=== PATIENT | male | born 1945 | race Caucasian/White ===

== ENCOUNTER 2022-05-01 08:33 | Outpatient (CLI) | payer MEDICARE, SELFPAY | END 2022-05-01 08:34 | disposition home or self-care (01) | LOC: AMB 12:39 | PROVIDERS: PCP Family Medicine; Visit Provider Emergency Medicine Emergency Medical Services | DX: R06.09 Other forms of dyspnea (principal) | CPT/HCPCS: A0425; A0427 ==

== ENCOUNTER 2022-05-01 09:14 | Inpatient (IN) | payer MEDICARE, SELFPAY ==
[2022-05-01] VITALS (23 sets, daily range): BP systolic 107–155; BP diastolic 64–93; PULSE 60–108; RESP 24–402; TEMP 36.4–36.9; O2SAT 87–95; BMI 22.3
[2022-05-01] MEDS: ONDANSETRON 2 MG/ML inj 4 MG IVP (09:20)
--- NOTE | 2022-05-01 09:28 | CRLHL7_ITS ---
For Patients: As a result of the Century Cures Act, medical imaging exams and procedure reports are released immediately into your electronic medical record. You may view this report before your referring provider. If you have questions, please contact your health care provider. INDICATION: Shortness of breath TECHNIQUE: Single view chest. Comparison chest x-ray 04/26/2021 FINDINGS: Enlarged cardiac silhouette. Calcified pleural plaques basilar atelectasis. No effusion or pneumothorax. Prominence of the pulmonary hilum could be related to enlarged pulmonary arteries. Hiatal hernia. No acute pulmonary findings. Dictated by Deepa Casanova MD @ 05/01/2022 10:07:16 AM (Electronically Signed)
--- NOTE | 2022-05-01 09:32 | ED.SOB ---
HPI - SOB/Dyspnea General Chief Complaint: Shortness of Breath/Dyspnea Stated Complaint: Difficulty breathing Time Seen by Provider: 05/01/22 09:19 History of Present Illness HPI Narrative: This 77-year-old male comes in by ambulance because of shortness of breath. He is typically on home oxygen continuously at 2 liters/minute. He began to be more short of breath toward evening last night and his oxygen was increased. He did receive nebulizer treatments but he continued to worsen. He does have a cough. He arrives here by ambulance on 10 L non-rebreather mask with oximetry at 94%. He is using accessory muscles for breathing and has decreased air movement. He does have a history of atrial flutter. He does not report any chest pain. He is taking a diuretic. Related Data Home Medications Medication Instructions Recorded Confirmed apixaban 5 mg tablet (Eliquis) 5 mg PO BID 12/26/21 05/01/22 carvedilol 6.25 mg tablet 6.25 mg PO BID 12/26/21 05/01/22 digoxin 125 mcg (0.125 mg) tablet 125 mcg PO DAILY 12/26/21 05/01/22 furosemide 20 mg tablet 20 mg PO DAILY 12/26/21 05/01/22 prednisone 10 mg tablet 10 mg PO DAILY 12/26/21 05/01/22 ipratropium 0.5 mg-albuterol 3 mg 3 ml inhalation QID 05/01/22 05/01/22 (2.5 mg base)/3 mL nebulization soln ipratropium bromide 0.02 % 0.5 mg continuous nebulization Q4H 05/01/22 05/01/22 solution for inhalation Previous Rx's Medication Instructions Recorded doxycycline hyclate 100 mg capsule 100 mg PO BID #14 caps 05/02/22 ipratropium 20 mcg-albuterol 100 1 puff inhalation QID #4 grams 05/02/22 mcg/actuation mist for inhalation (Combivent Respimat) prednisone 20 mg tablet 40 mg PO DAILYWM #32 tabs 05/02/22 Allergies Allergy/AdvReac Type Severity Reaction Status Date / Time No Known Drug Allergies Allergy Verified 12/26/21 14:42 Review of Systems Narrative: Review of systems is not obtained due to BiPAP therapy. [facility] Medical History (Updated 05/02/22 @ 13:01 by Aimee Kaur MD) Atrial fibrillation ?I48.91 - Unspecified atrial fibrillation (ICD-10) Chronic anticoagulation ?Z79.01 - watermaster (current) use of anticoagulants (ICD-10) H/O cardiomyopathy ?Z86.79 - Personal history of other diseases of the circulatory system (ICD-10) Oxygen dependent ?Z99.81 - Dependence on supplemental oxygen (ICD-10) Severe chronic obstructive pulmonary disease ?J44.9 - Chronic obstructive pulmonary disease, unspecified (ICD-10) Thoracic compression fracture ?S22.000A - Wedge compression fracture of unspecified thoracic vertebra, initial encounter for closed fracture (ICD-10) Uses bilevel positive airway pressure (BPAP) ventilation at home ?Z99.89 - Dependence on other enabling machines and devices (ICD-10) Surgical History (Updated 05/01/22 @ 10:16 by Aimee Kaur MD) H/O tympanomastoidectomy ?Z98.890 - Other specified postprocedural states (ICD-10) H/O vasectomy ?Z98.52 - Vasectomy status (ICD-10) Social History (Updated 05/01/22 @ 11:44 by Aimee Kaur MD) 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 DNR/DNI. Smoking Status: Former smoker Do you use any of these nicotine containing products: None Nicotine containing products detail: 3885-9232 1ppd 2 cigs a day in 2019, nothing since 2020 Second hand tobacco smoke exposure: No How often do you have a drink containing alcohol: never How often do you have six or more drinks on one occasion: Never AUDIT-C Alcohol total score: 0 Non-prescribed substance use: denies use service: No Exam Narrative: Exam Narrative: Constitutional: Well-developed, well-nourished, no acute distress. HEENT: Normocephalic, atraumatic. Neck: Normal range of motion. Nontender. Supple. Heart: Regular. No murmurs. Tachycardia. Intact distal pulses. Lungs: Decreased air movement. Use of accessory muscles for breathing. Abdomen: Normal bowel sounds. Nontender. No rebound tenderness. Genitalia: Deferred. Back: No midline tenderness. Normal range of motion. Extremities: Normal range of motion. No injury. No pedal edema. Skin: Intact. No rash. Warm. No erythema or pallor. Neurologic: No altered sensation. No weakness. Alert and oriented. Psychiatric: No suicidality. No anxiety or depression. No insomnia. Nursing notes and vitals signs are reviewed. Const: Vital Signs, click to edit/add: Vital Signs - 24 hr 05/01/22 09:22 05/01/22 09:28 05/01/22 10:00 Temperature 97.7 F Pulse Rate Pulse Rate [Right Pulse Oximeter] 108 H Respiratory Rate 40 H Blood Pressure Blood Pressure [Ri ght Upper Arm] 155/93 H Pulse Oximetry 87 L Oxygen Delivery Me thod Room Air BiPAP Fraction of Inspir ed Oxygen 30 30 05/01/22 09:29 05/01/22 09:30 05/01/22 09:40 Temperature Pulse Rate 90 88 86 Pulse Rate [Right Pulse Oximeter] Respiratory Rate Blood Pressure 121/79 Blood Pressure [Ri ght Upper Arm] Pulse Oximetry 94 95 93 Oxygen Delivery Me thod Fraction of Inspir ed Oxygen 05/01/22 09:41 05/01/22 09:45 Temperature Pulse Rate 86 81 Pulse Rate [Right Pulse Oximeter] Respiratory Rate Blood Pressure Blood Pressure [Ri ght Upper Arm] Pulse Oximetry 95 92 Oxygen Delivery Me thod BiPAP Fraction of Inspir ed Oxygen 30 Course Course Hospital Course: HOSPITALIST DISCHARGE SUMMARY ATTENDING PHYSICIAN: Aimee Kaur MD FINAL DIAGNOSIS: Acute hypoxic respiratory failure with hypercapnia Severe COPD Atrial fibrillation HOSPITAL FOLLOWUP ISSUES: 1. Pulmonary medicine, scheduled 05/25/2022 REFERRALS WHILE ADMITTED: RT REFERRALS AFTER DISCHARGE: PCP and Pulmonary Medicine BRIEF HOSPITAL COURSE: 77-year-old with severe, class D, COPD. At baseline he is prednisone and oxygen dependent. He had an acute exacerbation of his COPD and became anxious with respiratory distress. EMS brought him to the emergency room on a non-rebreather yesterday morning. For unclear reasons he did not apply his BiPAP at home. BiPAP applied here quickly and effectively reduced his respiratory distress, dyspnea and panic. His CO2 upon arrival was 74. With use of BiPAP, nebulizers and steroids we had down to 54 this morning. He is back to his 2-3 L per nasal cannula while awake. Respiratory therapy and nursing spent time educating the patient about baseline breathing techniques, nebulizers, meter dosed inhalers, oxygen use in CO2 retention, and home BiPAP use. There was no underlying pneumonia, other infection or cardiac event identified. He met discharge criteria as of the afternoon of 05/02/2022. SUBSTANTIVE NOTATIONS ON IMAGING, LAB, MICROBIOLOGY/PATHOLOGY STUDIES: Chest x-ray, ECG were reassuring. He was in sinus rhythm despite his known history of paroxysmal AFib. His pH was normal, however his CO2 was elevated on arrival. Seventy-four. On discharge we had it down to 54. DISCHARGE MEDICATIONS: See Reconciled list - SIGNIFICANT CHANGES: Prednisone burst and taper Doxycycline for 1 week Duo MDI as there seems to be a shortage of duo nebulizer solution REVIEW OF SYSTEMS No new chest pain or dyspnea Pain controlled No voiding difficulties Tolerating diet challenge PHYSICAL EXAM: CONSTITUTIONAL: Alert. Insightful. Mild chronic respiratory distress. VITAL SIGNS: see record. HEENT: Normocephalic, atraumatic. PERRL, EOMI, conjunctivae pink, no scleral icterus. Ears and nose externally normal. Pharynx normal. NECK: No JVD. No carotid bruit, no thyromegaly, no adenopathy. CHEST: Clear to auscultation bilaterally. HEART: S1 and S2 normal. Edema ABDOMEN: Soft, nontender. Normal bowel sounds. MUSCULOSKELETAL: No gross joint deformity or swelling. NEURO: Cranial nerves intact. Grossly intact. No asymmetric findings. SKIN: No rashes, petechiae, concerning changes PSYCHIATRIC: Mood euthymic. DISPOSITION: Home with son Time spent on discharge 37 minutes. Vital Signs Vital signs: Initial Vital Signs Temperature 97.7 F 05/01/22 09:22 Temperature Source Temporal Artery Scan 05/01/22 09:22 Pulse Rate 108 H 05/01/22 09:22 Respiratory Rate 40 H 05/01/22 09:22 Blood Pressure 155/93 H 05/01/22 09:22 Blood Pressure Mean 113 05/01/22 09:22 Blood Pressure Position Sitting 05/01/22 09:22 Pulse Oximetry 87 L 05/01/22 09:22 Oxygen Delivery Method Room Air 05/01/22 09:22 Vital Signs Temperature 97.7 F 05/01/22 09:22 Pulse Rate 108 H 05/01/22 09:22 Respiratory Rate 40 H 05/01/22 09:22 Blood Pressure 155/93 H 05/01/22 09:22 Pulse Oximetry 87 L 05/01/22 09:22 Oxygen Delivery Method Room Air 05/01/22 09:22 Temperature 99.2 F 05/02/22 12:18 Pulse Rate 83 05/02/22 12:18 Respiratory Rate 28 H 05/02/22 12:18 Blood Pressure 118/68 05/02/22 12:18 Pulse Oximetry 93 05/02/22 12:18 Oxygen Delivery Method Nasal Cannula 05/02/22 12:18 Oxygen Flow Rate 2 05/02/22 12:18 Fraction of Inspired Oxygen 28 05/01/22 23:28 MDM - SOB/Dyspnea MDM Narrative Medical decision making narrative: Soon after arrival this patient was switched to BiPAP to assist with his breathing. He is maintaining sufficient oximetry and his heart rate returned to normal on BiPAP. Lab results returned with a normal lactate level. His sodium is slightly low at 133. VBG is returned with an elevated carbon dioxide at 74. His pH is 7.33. Chest x-ray shows no acute pulmonary findings. I did speak with Dr. Kaur, hospitalist on-call, who agrees to bring him into the hospital for further evaluation and treatment. Lab Data Labs: Lab Results 05/01/22 05/01/22 05/01/22 Range/Units 09:28 09:29 09:30 WBC 11.88 H (4.50-11.00) K/uL RBC 4.46 (4.30-5.90) m/uL Hgb 13.8 (13.5-17.5) gm/dL Hct 42.6 (37.0-53.0) % MCV 96 (80-100) fL MCH 31 (26-34) pg MCHC 32 (32-36) gm/dL RDW Coeff of Chiny[place] 13.1 (11.5-15.5) % Plt Count 302 (140-440) K/uL Neut % (Auto) 64.9 (42.0-72.0) % Lymph % (Auto) 25.3 (20-44) % [place] % (Auto) 7.2 (0.0-11.0) % Eos % (Auto) 0.8 (0.0-7.0) % Baso % (Auto) 0.4 (0.0-3.0) % Neut # (Auto) 7.70 H (1.7-7.0) K/uL Lymph # (Auto) 3.00 H (0.90-2.90) K/uL [place] # (Auto) 0.90 (0.00-0.90) K/UL Eos # (Auto) 0.10 (0.00-0.50) K/uL Baso # (Auto) 0.00 (0.00-0.30) K/uL D-Dimer Quant (PE/DVT) < 0.27 (0.00-0.50) ug/ml VBG pH (7.32-7.43) VBG pCO2 (40-50) mmHG VBG pO2 (25-47) mmHG VBG HCO3 (21-28) mmol/L Sodium 133 L (135-149) mmol/L Potassium 3.8 (3.6-5.1) mmol/L Chloride 93 L (96-114) mmol/L Carbon Dioxide 37 H (20-32) mmol/L BUN 9 (7-30) mg/dL Creatinine 0.6 (0.5-1.5) mg/dL Estimated GFR 98 ml/min Glucose 166 H (60-115) mg/dL Lactate (0.5-1.9) mmol/L Calcium 9.3 (8.4-10.6) mg/dL C-Reactive Protein 0.8 (0.5-1.0) mg/dL NT-Pro-B Natriuret Pep 251 pg/mL Procalcitonin (<0.50) ng/mL Digoxin (0.8-2.0) ng/mL SARS-CoV-2 (PCR) Negative SARS-CoV-2 (Negative) Influenza Type A (PCR) Negative PCR FLU A (Negative) Influenza Type B (PCR) Negative PCR FLU B (Negative) RSV (PCR) Negative PCR RSV (Negative) POC Troponin I 0.01 (0.01-0.04) ng/ml 05/01/22 05/01/22 Range/Units 09:58 10:30 WBC (4.50-11.00) K/uL RBC (4.30-5.90) m/uL Hgb (13.5-17.5) gm/dL Hct (37.0-53.0) % MCV (80-100) fL MCH (26-34) pg MCHC (32-36) gm/dL RDW Coeff of Chinyere (11.5-15.5) % Plt Count (140-440) K/uL Neut % (Auto) (42.0-72.0) % Lymph % (Auto) (20-44) % [place] % (Auto) (0.0-11.0) % Eos % (Auto) (0.0-7.0) % Baso % (Auto) (0.0-3.0) % Neut # (Auto) (1.7-7.0) K/uL Lymph # (Auto) (0.90-2.90) K/uL [place] # (Auto) (0.00-0.90) K/UL Eos # (Auto) (0.00-0.50) K/uL Baso # (Auto) (0.00-0.30) K/uL D-Dimer Quant (PE/DVT) (0.00-0.50) ug/ml VBG pH 7.322 (7.32-7.43) VBG pCO2 74 H* (40-50) mmHG VBG pO2 33.2 (25-47) mmHG VBG HCO3 38 H (21-28) mmol/L Sodium (135-149) mmol/L Potassium (3.6-5.1) mmol/L Chloride (96-114) mmol/L Carbon Dioxide (20-32) mmol/L BUN (7-30) mg/dL Creatinine (0.5-1.5) mg/dL Estimated GFR ml/min Glucose (60-115) mg/dL Lactate 0.8 (0.5-1.9) mmol/L Calcium (8.4-10.6) mg/dL C-Reactive Protein (0.5-1.0) mg/dL NT-Pro-B Natriuret Pep pg/mL Procalcitonin 0.06 (<0.50) ng/mL Digoxin 0.6 L (0.8-2.0) ng/mL SARS-CoV-2 (PCR) (Negative) Influenza Type A (PCR) (Negative) Influenza Type B (PCR) (Negative) RSV (PCR) (Negative) POC Troponin I (0.01-0.04) ng/ml Imaging Data Chest x-ray: Radiologist's impression: Enlarged cardiac silhouette. Calcified pleural plaques basilar atelectasis. No effusion or pneumothorax. Prominence of the pulmonary hilum could be related to enlarged pulmonary arteries. Hiatal hernia. No acute pulmonary findings. ECG Data Attestation: I personally reviewed and interpreted this ECG as follows: Interpretation: Normal sinus rhythm. Rate is 72 beats per minute. There are no ST or T-wave abnormalities. Discharge Plan Discharge Clinical Impression: Uses bilevel positive airway pressure (BPAP) ventilation at home, Chronic respiratory failure with hypoxia and hypercapnia, Severe chronic obstructive pulmonary disease Patient Disposition: Admitted As Inpatient Condition: Improved Activity Level: Activity as Tolerated Discharge Diet: Regular
[2022-05-01 09:44] LABS: Troponin, Point-of-Care* 0.01 ng/ml (0.01-0.04)
[2022-05-01 09:58] LABS: Basophils Percent Auto 0.4 % (0.0-3.0); Eosinophils Percent Auto 0.8 % (0.0-7.0); Hematocrit 42.6 % (37.0-53.0); Hemoglobin* 13.8 gm/dL (13.5-17.5); Immature Granulocytes Pct Auto 1.4 %; Lymphocytes Percent Auto 25.3 % (20-44); Mean Corpuscular HGB Conc 32 gm/dL (32-36); Mean Corpuscular Hemoglobin 31 pg (26-34); Mean Corpuscular Volume 96 fL (80-100); Monocytes Percent Auto 7.2 % (0.0-11.0); Neutrophils Percent Auto 64.9 % (42.0-72.0); Platelet Count* 302 K/uL (140-440); RDW Coefficient of Variation % 13.1 % (11.5-15.5); Red Blood Count 4.46 m/uL (4.30-5.90); White Blood Count* 11.88 K/uL (4.50-11.00)
[2022-05-01 10:05] LABS: Lactate* 0.8 mmol/L (0.5-1.9)
[2022-05-01 10:06] LABS: pH VBG 7.322 (7.32-7.43)
[2022-05-01 10:07] LABS: HCO3 VBG 38 mmol/L (21-28); PO2 VBG 33.2 mmHG (25-47)
[2022-05-01 10:08] LABS: PCO2 VBG 74 mmHG (40-50)
[2022-05-01 10:08] LABS: Slide Review Reflex No
[2022-05-01 10:12] LABS: D Dimer Quantitative* < 0.27 ug/ml (0.00-0.50)
[2022-05-01 10:23] LABS: PCR FLU A Negative PCR FLU A (Negative); PCR FLU B Negative PCR FLU B (Negative); PCR RSV Negative PCR RSV (Negative)
[2022-05-01 10:24] LABS: Chloride* 93 mmol/L (96-114); Potassium* 3.8 mmol/L (3.6-5.1); Sodium* 133 mmol/L (135-149)
[2022-05-01 10:26] LABS: Creatinine* 0.6 mg/dL (0.5-1.5); Estimated Glomerular Filt Rate 98 ml/min; SARS PCR* Negative SARS-CoV-2 (Negative)
[2022-05-01 10:27] LABS: Blood Urea Nitrogen* 9 mg/dL (7-30); Calcium* 9.3 mg/dL (8.4-10.6); Carbon Dioxide* 37 mmol/L (20-32); Glucose* 166 mg/dL (60-115)
--- NOTE | 2022-05-01 10:31 | P.IMHP_ITS ---
Hospitalist- H&P: HPI History of Present Illness Date Seen: 05/01/22 Chief complaint: Difficulty breathing Narrative: ADMISSION HISTORY AND PHYSICAL - HOSPITALIST Chief Complaint: SOB HPI: 77-year-old with known severe end-stage COPD on chronic prednisone, home O2, BiPAP at night presents via EMS for respiratory distress. He lives with his son and [id number]. His son is his POA and emergency contact. His son relates that his dad has been relatively stable over the last 12-18 months with just an occasional ?bad day? but starting at about 2:00 a.m. this morning things became much worse. He had trouble breathing. Ab turned up his home oxygen to 5-6L. His son reports his dad was a little confused. Neither of them thought to put on his home BiPAP unit. He typically wears it when he sleeps in the bedroom but last night had stayed in the living room and thus he forgot about his BiPaP. No recent fevers, increased sputum production, malaise. He is COVID vaccinated with the most recent by bivalent booster. He is followed by Pulmonary Medicine, [facility], his last visit was in November. He is followed by Dr. Siegel in primary care. In addition to severe COPD, he is on chronic anticoagulation and beta blockade for chronic AFib. He denies any chest pain or racing heart rate in recent days. ER COURSE: Arrives by EMS receiving Zofran and a DuoNeb EN route. RT met him and placed him on BiPAP with near immediate relief. He received a 2nd DuoNeb and Solu-Medrol. Chest x-ray, EKG, labs were all done. CODE STATUS: DNR/DNI. EMERGENCY CONTACT PLAN: Escobar, son, at [phone] I've updated the PFSH, medications and allergies in the Expanse tabs. INVESTIGATIONS: LABS/MICRO/ECG/IMAGING 121/79. Pulse 81. Respirations 14. Moderate respiratory distress. Afebrile. O2 sat initially in the high 70s. But now stabilized with O2 sats 92% on BiPAP. CBC is mildly elevated 11.88. Hemoglobin normal. D-dimer unremarkable. PH 7.32, chronic hypercapnia but likely acutely worse at 74. Sodium 133. Normal potassium. Normal renal function. Lactate 0.8. Negative SARs influenza and RSV panel. Troponin is undetectable. EKG shows sinus rhythm, first-degree AV block. Pulmonary disease pattern. No acute ischemic changes identified. Chest x-ray, single view: Enlarged cardiac silhouette. Calcified pleural plaques basilar atelectasis. No effusion or pneumothorax. Prominence of the pulmonary hilum could be related to enlarged pulmonary arteries. Hiatal hernia. No acute pulmonary findings. 2 blood cultures pending Calcitonin pending Digoxin level pending REVIEW OF SYSTEMS: 12-point ROS completed with patient and negative unless otherwise stated in HPI or below. PHYSICAL EXAM: CONSTITUTIONAL: Chronically ill-appearing. Alert. VITAL SIGNS: see record. HEENT: Normocephalic, atraumatic. PERRL, EOMI, conjunctivae pink, no scleral ic terus. Ears and nose externally normal. Pharynx normal. NECK: No JVD. No carotid bruit, no thyromegaly, no adenopathy. CHEST: Using accessory muscles to breathe. Abdominal breathing. Scattered whe ezes. HEART: S1 and S2 normal. No harsh murmurs. Edema trace to 1+. MUSCULOSKELETAL: No gross joint deformity or swelling. NEURO: Cranial nerves intact. Grossly intact. No asymmetric findings. SKIN: No rashes, petechiae, concerning changes PSYCHIATRIC: Euthymic. ADMIT TO MEDSURG: CCU DVT: Continue Eliquis GI: PO intake, add PPI Time spent: 70 minutes examining patient, conferring with family and patient, care staff, developing care plan [facility] Medical History (Updated 05/01/22 @ 11:19 by Aimee Kaur MD) Atrial fibrillation ?I48.91 - Unspecified atrial fibrillation (ICD-10) Chronic anticoagulation ?Z79.01 - assisted (current) use of anticoagulants (ICD-10) H/O cardiomyopathy ?Z86.79 - Personal history of other diseases of the circulatory system (ICD- 10) Oxygen dependent ?Z99.81 - Dependence on supplemental oxygen (ICD-10) Severe chronic obstructive pulmonary disease ?J44.9 - Chronic obstructive pulmonary disease, unspecified (ICD-10) Thoracic compression fracture ?S22.000A - Wedge compression fracture of unspecified thoracic vertebra, initial encounter for closed fracture (ICD-10) Uses bilevel positive airway pressure (BPAP) ventilation at home ?Z99.89 - Dependence on other enabling machines and devices (ICD-10) Surgical History (Updated 05/01/22 @ 10:16 by Aimee Kaur MD) H/O tympanomastoidectomy ?Z98.890 - Other specified postprocedural states (ICD-10) H/O vasectomy ?Z98.52 - Vasectomy status (ICD-10) Social History (Updated 05/01/22 @ 11:44 by Aimee Kaur MD) 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 DNR/DNI. Smoking Status: Former smoker Do you use any of these nicotine containing products: None Nicotine containing products detail: [id number] 1ppd 2 cigs a day in 2018, nothing since 2020 Second hand tobacco smoke exposure: No How often do you have a drink containing alcohol: never How often do you have six or more drinks on one occasion: Never AUDIT-C Alcohol total score: 0 Non-prescribed substance use: denies use service: No Meds Home Medications and Allergies Home Medications Medication Instructions Recorded Confirmed Type apixaban 5 mg tablet (Eliquis) 5 mg PO 12/26/21 12/26/21 History carvedilol 6.25 mg tablet 6.25 mg PO 12/26/21 12/26/21 History digoxin 125 mcg (0.125 mg) tablet 125 mcg PO 12/26/21 12/26/21 History furosemide 20 mg tablet 20 mg PO 12/26/21 12/26/21 History prednisone 10 mg tablet 10 mg PO 12/26/21 12/26/21 History Allergies Allergy/AdvReac Type Severity Reaction Status Date / Time No Known Drug Allergies Allergy Verified 12/26/21 14:42 Exam Const: Vital Signs, click to edit/add: Vital Signs - 24 hr 05/01/22 09:22 05/01/22 09:28 05/01/22 10:00 Temperature 97.7 F Pulse Rate Pulse Rate [Right Pulse Oximeter] 108 H Respiratory Rate 40 H Blood Pressure Blood Pressure [Ri ght Upper Arm] 155/93 H Pulse Oximetry 87 L Oxygen Delivery Me thod Room Air BiPAP Fraction of Inspir ed Oxygen 30 30 05/01/22 09:29 05/01/22 09:30 05/01/22 09:40 Temperature Pulse Rate 90 88 86 Pulse Rate [Right Pulse Oximeter] Respiratory Rate Blood Pressure 121/79 Blood Pressure [Ri ght Upper Arm] Pulse Oximetry 94 95 93 Oxygen Delivery Me thod Fraction of Inspir ed Oxygen 05/01/22 09:41 05/01/22 09:45 Temperature Pulse Rate 86 81 Pulse Rate [Right Pulse Oximeter] Respiratory Rate Blood Pressure Blood Pressure [Ri ght Upper Arm] Pulse Oximetry 95 92 Oxygen Delivery Me thod BiPAP Fraction of Inspir ed Oxygen 30 Hospitalist - H&P: Result Labs Labs: Short CBC 05/01/22 Range/Units 09:30 WBC 11.88 H (4.50-11.00) K/uL Hgb 13.8 (13.5-17.5) gm/dL Hct 42.6 (37.0-53.0) % Plt Count 302 (140-440) K/uL BMP 05/01/22 09:28 Sodium 133 L Potassium 3.8 Chloride 93 L Carbon Dioxide 37 H BUN 9 Creatinine 0.6 Glucose 166 H Calcium 9.3 Assessment and Plan Assessment and plan (1) Acute respiratory failure with hypoxia and hypercapnia: Problem comment: -d/t COPD exacerbation -BiPAP support, nebulizer support, IV steroids, oral doxycycline, respiratory therapist to see in support pulmonary hygiene -will likely be here for 2-3 days. -no evidence of pneumonia, inciting infection, cardiovascular event Status: Acute (2) Severe chronic obstructive pulmonary disease: Problem comment: -as above Gold D. Severe COPD/emphysema. Bilateral scarring. Oxygen and prednisone dependent. Duonebs 4x/day; Breo Ellipta, proventil prn Followed by Dr. Shakeel Eaton, Pulmonary Medicine [facility] Last PFT was in February of 2018 --FEV1 predicted 32%, FEV1/FVC% 44.21 Status: Acute (3) Oxygen dependent: Problem comment: 3-4L at home; CO2 retention hx Status: Acute (4) On prednisone therapy: Problem comment: -while acutely ill I am initiating IV Solu-Medrol at 125 mg Q 8 hours IV 10 mg daily; 5 mg trial was not effective Status: Acute (5) Atrial fibrillation: Problem comment: -currently in sinus, rate controlled. Troponin negative. -on coreg, digoxin, eliquis 05/26 at [facility] Limited Echocardiogram performed 1. Normal LV size, normal global systolic function with an estimated EF of 65 - 70%. 2. Technically difficult exam. 3. Technically limited exam. Chamber Sizes and Function Normal left ventricular size, normal global systolic function with an estimated EF of 65 - 70%. Status: Acute (6) Uses bilevel positive airway pressure (BPAP) ventilation at home: Problem comment: Trilogy device at night EPAP 8-12 4L O2 bleed in Status: Acute (7) Carbon dioxide retention: Problem comment: -VBG today shows PCO2: 74 Previous records I can find show that on a venous blood gas his CO2 levels 49 back in 2020. I did see 1 critical value of CO2 69. 2018 and this was arterial. Status: Acute (8) Peripheral edema: Problem comment: -trace to 1+. Greater than right. He is on home Lasix p.o. dosing. I will continue this. Status: Acute (9) Chronic anticoagulation: Problem comment: Continue home Eliquis dosing Status: Acute (10) H/O cardiomyopathy: Problem comment: likely from RVR AFIB, EF was 30% but resolved with last echo in 2020 which demonstrated a normal EF. Status: Acute (11) Chronic respiratory failure with hypoxia and hypercapnia: Problem comment: d/t severe COPD Status: Acute
[2022-05-01 10:38] LABS: NT Pro B Type NatriureticPept* 251 pg/mL
[2022-05-01] MEDS: METHYLPREDNISOLONE SOD SUCC 62.5 MG/ML (125) 125 MG IVP ×3 (11:07→23:25)
[2022-05-01] MEDS: IPRAT-ALBUT 0.5-2.5 MG/3 ML NEB 1 NEB IH ×2 (11:07→18:56)
[2022-05-01] MEDS: DOXYCYCLINE HYCLATE 100 MG CAPSULE PO ×2 (12:03→21:31)
[2022-05-01] MEDS: PANTOPRAZOLE SODIUM 40 MG INJ IVP (12:03)
[2022-05-01 12:06] LABS: C Reactive Protein* 0.8 mg/dL (0.5-1.0)
[2022-05-01] MEDS: 0.9 % SODIUM CHLORIDE 1000 ml 1,000 ML 75 ML IV (12:09)
[2022-05-01 12:36] LABS: Procalcitonin* 0.06 ng/mL (<0.50)
[2022-05-01 13:27] LABS: Digoxin* 0.6 ng/mL (0.8-2.0)
[2022-05-01 13:56] LABS: Base Excess ABG 7.7 mmol/L (-3.0-3.0); Carboxyhemoglobin* 1.2 % (0.0-5.0); HCO3 ABG 35 mmol/L (21-28); Oxygen Saturation ABG 95 % (92-100); PO2 ABG 73.7 mmHG (80-105); TCO2 ABG 32 mmol/l (21-30); pH ABG 7.37 (7.35-7.45)
[2022-05-01 13:58] LABS: ABG PCO2 61 mmHG (35-45)
[2022-05-01] MEDS: ALBUTEROL SULFATE 2.5 MG/3 ML VIAL.NEB NEB (15:39)
[2022-05-01] MEDS: ACETAMINOPHEN 325 MG TABLET 650 MG PO (18:10)
--- NOTE | 2022-05-01 19:00 | PC.NURSE ---
PATIENT CURRENTLY ON 2L O2 PER NC AND O2 SATS 91-93%. UP WITH SBA, WALKER AND GAIT BELT TO RECLINER. PATIENT DENIES N/V BUT DOES REPORT DECREASED APPETITE. LUNG SOUNDS DIMINISHED WITH OCCASIONAL EXPIRATORY WHEEZING TO BILATERAL BASES. NON-PRODUCTIVE COUGH. SOB AT REST AND WORSENED WITH EXERTION. RECEIVED TYLENOL FOR HEADACHE WITH IMPROVEMENT.
[2022-05-01] MEDS: carvediloL 6.25 MG TABLET PO (21:31)
[2022-05-01] MEDS: APIXABAN 5 MG TABLET PO (21:31)
--- NOTE | 2022-05-01 23:13 | PC.NURSE ---
Pt denies pain, c/o chest tightness. 2L nc to maintain sats in low 90's. Uses walker for ambulation, and stands to use urinal at bedside. Wheezes bilaterally. Nebs per MAR with relief per pt.
[2022-05-01] MEDS: SODIUM CHLORIDE 0.9 % (FLUSH) 10 ML SYRINGE 5 ML IVF (23:25)
[2022-05-02] MEDS: 0.9 % SODIUM CHLORIDE 1000 ml 1,000 ML 75 ML IV (00:09)
[2022-05-02 05:12] VITALS: BP 106/61; PULSE 72; RESP 18; TEMP 36.6; O2SAT 93
[2022-05-02] MEDS: OMEPRAZOLE 20 MG CAPSULE DR 40 MG PO (06:08)
[2022-05-02] MEDS: IPRAT-ALBUT 0.5-2.5 MG/3 ML NEB 1 NEB IH ×3 (06:10→12:46)
[2022-05-02 06:14] LABS: Basophils Absolute Auto 0.01 K/uL (0.00-0.30); Basophils Percent Auto 0.1 % (0.0-3.0); HCO3 VBG 34 mmol/L (21-28); Hematocrit 36.2 % (37.0-53.0); Immature Granulocytes Abs Auto 0.15 K/uL (0.00-0.30); Immature Granulocytes Pct Auto 1.6 %; Lymphocytes Percent Auto 9.2 % (20-44); Mean Corpuscular HGB Conc 33 gm/dL (32-36); Mean Corpuscular Hemoglobin 31 pg (26-34); Mean Corpuscular Volume 95 fL (80-100); Monocytes Percent Auto 1.8 % (0.0-11.0); Neutrophils Percent Auto 87.3 % (42.0-72.0); PCO2 VBG 54 mmHG (40-50); PO2 VBG 48.9 mmHG (25-47); Platelet Count* 252 K/uL (140-440); RDW Coefficient of Variation % 13.1 % (11.5-15.5); Red Blood Count 3.82 m/uL (4.30-5.90); pH VBG 7.412 (7.32-7.43)
--- NOTE | 2022-05-02 06:14 | PC.NURSE ---
: Pt rested tonight with bipap on 11/09 fio2 28% oximetry 89-93%, now on 2lpm via nc, duoneb given now prior to obtaining wt and br, ivf infusing.
[2022-05-02 06:18] LABS: Slide Review Reflex No
[2022-05-02 06:31] LABS: Chloride* 97 mmol/L (96-114)
[2022-05-02 06:32] LABS: Potassium* 4.3 mmol/L (3.6-5.1); Sodium* 131 mmol/L (135-149)
[2022-05-02 06:34] LABS: Creatinine* 0.5 mg/dL (0.5-1.5); Est. Creatinine Clearance* 54.05; Estimated Glomerular Filt Rate 104 ml/min
[2022-05-02 06:35] LABS: Blood Urea Nitrogen* 13 mg/dL (7-30); Calcium* 8.9 mg/dL (8.4-10.6); Carbon Dioxide* 35 mmol/L (20-32); Glucose* 140 mg/dL (60-115)
[2022-05-02 07:15] VITALS: PULSE 65
[2022-05-02 08:15] VITALS: BP 116/69; PULSE 69; RESP 18; RESP 22; TEMP 36.8; O2SAT 95
[2022-05-02 08:32] VITALS: PULSE 74
[2022-05-02] MEDS: carvediloL 6.25 MG TABLET PO (08:32)
[2022-05-02] MEDS: DIGOXIN 125 MCG TABLET PO (08:32)
[2022-05-02] MEDS: APIXABAN 5 MG TABLET PO (08:33)
[2022-05-02] MEDS: DOXYCYCLINE HYCLATE 100 MG CAPSULE PO (08:33)
[2022-05-02] MEDS: predniSONE 20 MG TABLET 40 MG PO (08:33)
[2022-05-02 12:18] VITALS: BP 118/68; PULSE 83; RESP 28; TEMP 37.3; O2SAT 93; O2SAT 939
--- NOTE | 2022-05-02 12:48 | PM.DS1 ---
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 education pursued with patient about chronic disease management. -no evidence of pneumonia, inciting infection, cardiovascular event -d/c criteria met. (2) Severe chronic obstructive pulmonary disease: Status: Acute Problem details: -as above Gold D. Severe COPD/emphysema. Bilateral scarring. Oxygen and prednisone dependent. Duonebs 4x/day; Breo Ellipta, proventil prn Followed by Dr. Shakeel Eaton, Pulmonary Medicine [facility] Last PFT was in February of 2018 --FEV1 predicted 32%, FEV1/FVC% 44.21 (3) Oxygen dependent: Status: Acute Problem details: 3-4L at home; CO2 retention hx (4) On prednisone therapy: Status: Acute Problem details: -burst and taper at discharge -f/u with pulmonary already arranged (5) Atrial fibrillation: Status: Acute Problem details: -currently in sinus, rate controlled. Troponin negative. -on coreg, digoxin, eliquis 05/26 at [facility] Limited Echocardiogram performed 1. Normal LV size, normal global systolic function with an estimated EF of 65 - 70%. 2. Technically difficult exam. 3. Technically limited exam. Chamber Sizes and Function Normal left ventricular size, normal global systolic function with an estimated EF of 65 - 70%. (6) Chronic respiratory failure with hypoxia and hypercapnia: Status: Acute Problem details: d/t severe COPD (7) Uses bilevel positive airway pressure (BPAP) ventilation at home: Status: Acute Problem details: Trilogy device at night EPAP 8-12 4L O2 bleed in (8) Carbon dioxide retention: Status: Acute Problem details: -CO2 74 on admission, down to 54 day of discharge. DS: Summary Hospital Course Hospital Course: HOSPITALIST DISCHARGE SUMMARY ATTENDING PHYSICIAN: Aimee Kaur MD FINAL DIAGNOSIS: Acute hypoxic respiratory failure with hypercapnia Severe COPD Atrial fibrillation HOSPITAL FOLLOWUP ISSUES: 1. Pulmonary medicine, scheduled 05/25/2022 REFERRALS WHILE ADMITTED: RT REFERRALS AFTER DISCHARGE: PCP and Pulmonary Medicine BRIEF HOSPITAL COURSE: 77-year-old with severe, class D, COPD. At baseline he is prednisone and oxygen dependent. He had an acute exacerbation of his COPD and became anxious with respiratory distress. EMS brought him to the emergency room on a non-rebreather yesterday morning. For unclear reasons he did not apply his BiPAP at home. BiPAP applied here quickly and effectively reduced his respiratory distress, dyspnea and panic. His CO2 upon arrival was 74. With use of BiPAP, nebulizers and steroids we had down to 54 this morning. He is back to his 2-3 L per nasal cannula while awake. Respiratory therapy and nursing spent time educating the patient about baseline breathing techniques, nebulizers, meter dosed inhalers, oxygen use in CO2 retention, and home BiPAP use. There was no underlying pneumonia, other infection or cardiac event identified. He met discharge criteria as of the afternoon of 05/02/2022. SUBSTANTIVE NOTATIONS ON IMAGING, LAB, MICROBIOLOGY/PATHOLOGY STUDIES: Chest x-ray, ECG were reassuring. He was in sinus rhythm despite his known history of paroxysmal AFib. His pH was normal, however his CO2 was elevated on arrival. Seventy-four. On discharge we had it down to 54. DISCHARGE MEDICATIONS: See Reconciled list - SIGNIFICANT CHANGES: Prednisone burst and taper Doxycycline for 1 week Duo MDI as there seems to be a shortage of duo nebulizer solution REVIEW OF SYSTEMS No new chest pain or dyspnea Pain controlled No voiding difficulties Tolerating diet challenge PHYSICAL EXAM: CONSTITUTIONAL: Alert. Insightful. Mild chronic respiratory distress. VITAL SIGNS: see record. HEENT: Normocephalic, atraumatic. PERRL, EOMI, conjunctivae pink, no scleral icterus. Ears and nose externally normal. Pharynx normal. NECK: No JVD. No carotid bruit, no thyromegaly, no adenopathy. CHEST: Clear to auscultation bilaterally. HEART: S1 and S2 normal. Edema ABDOMEN: Soft, nontender. Normal bowel sounds. MUSCULOSKELETAL: No gross joint deformity or swelling. NEURO: Cranial nerves intact. Grossly intact. No asymmetric findings. SKIN: No rashes, petechiae, concerning changes PSYCHIATRIC: Mood euthymic. DISPOSITION: Home with son Time spent on discharge 37 minutes. Status at Discharge Functional status at discharge: uses cane/walker Overall status at discharge: patient is progressing back to baseline Time Spent with Patient Time attestation: Total time spent providing and/or coordinating discharge services: Time spent: Greater than 30 minutes Exam Const: Vital Signs, click to edit/add: Vital Signs - 24 hr 05/01/22 13:47 05/01/22 14:03 05/01/22 15:00 Temperature Pulse Rate 74 70 Pulse Rate [Apical ] Respiratory Rate Blood Pressure [Ri ght Arm] Pulse Oximetry Oxygen Delivery Me thod Nasal Cannula Oxygen Flow Rate Fraction of Inspir ed Oxygen 0.32 05/01/22 15:00 05/01/22 15:00 05/01/22 19:15 Temperature 97.5 F L 98.1 F Pulse Rate Pulse Rate [Apical ] 70 70 79 Respiratory Rate 28 H 28 H 28 H Blood Pressure [Ri ght Arm] 112/64 126/66 Pulse Oximetry 94 92 Oxygen Delivery Me thod Nasal Cannula Nasal Cannula Oxygen Flow Rate 32 Fraction of Inspir ed Oxygen 05/01/22 23:28 05/01/22 23:32 05/02/22 05:12 Temperature 97.9 F 98 F Pulse Rate 60 Pulse Rate [Apical ] 63 72 Respiratory Rate 24 18 Blood Pressure [Ri ght Arm] 131/65 106/61 Pulse Oximetry 92 93 Oxygen Delivery Me thod BiPAP Nasal Cannula Oxygen Flow Rate 2 Fraction of Inspir ed Oxygen 28 05/02/22 07:15 05/02/22 08:32 05/02/22 08:15 Temperature Pulse Rate 65 74 Pulse Rate [Apical ] 69 Respiratory Rate 18 Blood Pressure [Ri ght Arm] Pulse Oximetry Oxygen Delivery Me thod Oxygen Flow Rate Fraction of Inspir ed Oxygen 05/02/22 12:18 05/02/22 12:18 05/02/22 08:15 Temperature 99.2 F 98.3 F Pulse Rate Pulse Rate [Apical ] 83 69 Respiratory Rate 28 H 22 Blood Pressure [Ri ght Arm] 118/68 116/69 Pulse Oximetry 939 H 93 95 Oxygen Delivery Me thod Nasal Cannula Nasal Cannula Oxygen Flow Rate 2 2 Fraction of Inspir ed Oxygen DS: Data Data Completed and Pending Labs on day of discharge: Labs from last 24 hours 05/02/22 05/01/22 05/01/22 06:03 13:50 10:30 WBC 9.10 RBC 3.82 L Hgb 12.0 L Hct 36.2 L MCV 95 MCH 31 MCHC 33 RDW Coeff of Chinyere 13.1 Plt Count 252 Neut % (Auto) 87.3 H Lymph % (Auto) 9.2 L Falls % (Auto) 1.8 Eos % (Auto) 0.0 Baso % (Auto) 0.1 Neut # (Auto) 7.90 H Lymph # (Auto) 0.80 L Falls # (Auto) 0.20 Eos # (Auto) 0.00 Baso # (Auto) 0.01 ABG pH 7.37 ABG pCO2 61 H* ABG pO2 73.7 L ABG HCO3 35 H ABG Total CO2 32 H ABG O2 Saturation 95 ABG Base Excess 7.7 H VBG pH 7.412 VBG pCO2 54 H VBG pO2 48.9 H VBG HCO3 34 H Carboxyhemoglobin 1.2 Sodium 131 L Potassium 4.3 Chloride 97 Carbon Dioxide 35 H BUN 13 Creatinine 0.5 Estimated Creat Clear 54.05 Estimated GFR 104 Glucose 140 H Calcium 8.9 Digoxin 0.6 L Preliminary micro results at discharge 05/01/22 09:58 Blood Culture - Preliminary Blood NO GROWTH AFTER 24 HOURS 05/01/22 09:30 Blood Culture - Preliminary Blood NO GROWTH AFTER 24 HOURS Discharge Plan Discharge Disposition: Home w/ Parent or Adult Date of Admission: 05/01/22 11:14 Attending Provider on Discharge: Aimee Kaur Primary Care Provider: Isidro Siegel Condition: Improved Anticipated Discharge Date/Time: 05/02/22 12:39 Discharge Medications: New doxycycline hyclate 100 mg Capsule 100 mg PO BID Qty: 14 0RF prednisone 20 mg Tablet 40 mg PO DAILYWM Qty: 32 0RF Rx Instructions: 40mg (2 tabs) for six more days (05/08), then decrease to 30mg (1.5tabs) for seven days (05/15), then decrease to 20mg (1 tab) for seven days (05/22), then 10 mg (1/2 tab) until you see Dr. Eaton on the 25 of May Combivent Respimat 20-100 mcg/actuation mist 1 puff inhalation QID Qty: 4 0RF Rx Instructions: space evenly during waking hours Continued furosemide 20 mg tablet 20 mg PO DAILY Patient Comments: Take 1 Tablet (20 mg) by mouth 2 times daily. carvedilol 6.25 mg tablet 6.25 mg PO BID Patient Comments: Take 1 Tablet (6.25 mg) by mouth 2 times daily. Eliquis 5 mg tablet 5 mg PO BID Patient Comments: Take 1 Tablet (5 mg) by mouth 2 times daily. digoxin 125 mcg (0.125 mg) tablet 125 mcg PO DAILY Patient Comments: Take 1 Tablet (125 mcg) by mouth once daily. ipratropium-albuterol 0.5 mg-3 mg(2.5 mg base)/3 mL solution for nebulization 3 ml INHALATION QID ipratropium bromide 0.02 % solution 0.5 mg continuous nebulization Q4H Patient Comments: [NO ORIGINAL SIG] Held prednisone 10 mg tablet 10 mg PO DAILY Hold Instructions: Resume on 05/25/22. Dr. Eaton to address future dose at appt. Patient Comments: Take 1 Tablet (10 mg) by mouth once daily with a meal. Discharge Orders: Discharge Order (Routine); Ordered 05/02/22 Ordered By: Aimee Kaur Additional Instructions: Please remember to keep your oxygen at between a 2-4 LPM Use the bipap anytime you feel more short of breath and every night I'm sending an antibiotic - please finish I'm sending a prednisone prescription at a higher dose and taper until your appt I'm sending the same medicine (DUONEB aka ipratropium/albuterol) in an inhaler form to [facility]. Use this medication up to 4x a day with a spacer. Activity Level: Activity as Tolerated Discharge Diet: Regular Follow Up Appointments: Isidro Siegel MD [Primary Care Provider] - Forms: [facility] Info Instructions
--- NOTE | 2022-05-02 14:52 | PC.NURSE ---
Discharge. pt was very pleasant. no pain. SOB with any activity. o2 2L at rest and 4L with activity. went over NEBS, BIPAP, O2 use. Aerobika, IS, TCDB. Breathing in thur nose hold breath and blowing out candles. Talked about things to do when SOB and things to help the problems. RN RT and MD all went over information with pt and son. checked PT home BIPAP, o2 concentrator and neb machine. he was on on 2lpm via nc, DuoNeb given and stands to use urinal at bedside. tele shows NSR with ST at times. tele was d/c. IF fluids D.C and later SL was Also D/C intact. walked pt in halls 86% on 4L nc and HR 100. and after sitting and neb done with 2L nc HR 88 and Sao2 was 91. talked about using BIBAP before turning o2 up. spent 2 hours teaching. Pt went over and signed personal belonging sheet and went over discharge with pt and son. went over meds, appointment, education and instructions. Pt got a w/c ride to car with o2 on. all belongings and paperwork sent with pt.
--- NOTE | 2022-05-02 15:48 | RESP.RT ---
Pt and son educated on various respiratory modalities by RT and RN. Pt and son with marginal understanding. Reinforced numerous times that Pt needs to wear trilogy vs turning up oxygen. His soon seemed to understand that, suspect that pt. will still increase oxygen at home. RN cleaned filters on Trilogy, neb machine, and portable oxygen. Stressed need to replace interfaces and keep units clean. Reviewed Aerobika, IS, and oxygen use. RN provided inhaler instruct with AeroChamber with him, as he is unable to get liquid albuterol/DuoNeb at this time from pharmacy secondary to national shortage. Spacer was provided.
== END 2022-05-02 13:30 | disposition home or self-care (01) | DRG 189 ==
LOC: ED 10:57 → MEDSURG 12:39
PROVIDERS: Internal Medicine; Admitting Provider Family Medicine; Emergency Provider Emergency Medicine Emergency Medical Services; PCP Family Medicine; Visit Provider Family Medicine
DX: J96.21 Acute and chronic respiratory failure with hypoxia (principal); J44.1 Chronic obstructive pulmonary disease with (acute) exacerbation; I48.20 Chronic atrial fibrillation, unspecified; J96.22 Acute and chronic respiratory failure with hypercapnia; I48.0 Paroxysmal atrial fibrillation; Z79.01 Long term (current) use of anticoagulants; I44.0 Atrioventricular block, first degree; Z99.81 Dependence on supplemental oxygen; Z99.89 Dependence on other enabling machines and devices; F41.9 Anxiety disorder, unspecified; Z79.52 Long term (current) use of systemic steroids
CPT/HCPCS: 36415; 36600; 71045; 80048; 80162; 82803; 83605; 83880; 84145; 84484; 85025; 85379; 86140; 87040; 87502; 87634; 87635; 93005; 94640; 94660; 94761; 97116; 97161; 97165; 99283; 99285; A9270; C9113; J2405; J2930; J7030; J7512

== ENCOUNTER 2023-01-30 08:25 | Inpatient (IN) | payer MEDICARE, SELFPAY ==
[2023-01-30] VITALS (18 sets, daily range): BP systolic 99–127; BP diastolic 55–76; PULSE 51–78; RESP 17–32; TEMP 36.5–37.5; O2SAT 80–100; BMI 21.6
--- NOTE | 2023-01-30 09:03 | CRLHL7_ITS ---
For Patients: As a result of the Century Cures Act, medical imaging exams and procedure reports are released immediately into your electronic medical record. You may view this report before your referring provider. If you have questions, please contact your health care provider. INDICATION: COVID TECHNIQUE: Chest 1 views. COMPARISON: Chest radiograph on 05/01/2022 FINDINGS/impression: The heart is at the upper limits of normal in size, likely accentuated by portable technique. Mild pulmonary vascular congestion. Similar-appearing opacifications involving the mid lung zones and bilateral lung bases with likely small/trace pleural effusions. Stable calcifications overlying the right lung base. No new focal airspace consolidation. No pneumothorax. Degenerative changes of the right shoulder. Dictated by Fuentes Troy MD @ 01/30/2023 9:48:03 AM (Electronically Signed)
--- NOTE | 2023-01-30 09:05 | ED.GENADULT ---
HPI - General Adult General Chief complaint: Shortness of Breath/Dyspnea Stated complaint: Covid + Time Seen by Provider: 01/30/23 08:32 History of Present Illness HPI narrative: This 77-year-old male comes in reporting upper respiratory symptoms for the past couple days. He tested positive for COVID and comes in here after contacting clinic to inquire about Paxlovid. His family member was told that Paxlovid is contraindicated when on Eliquis. The patient has COPD and is a former smoker. He is on oxygen at home at 3 liters/minute. He typically has oximetry in the low 90s%. Upon arrival here he was placed on nasal cannula oxygen at 5 L and has oximetry at 99%. I reduced oxygen to 2 liters/minute where he is still maintaining oximetry in the mid 90s. Related Data Home Medications Medication Instructions Recorded Confirmed apixaban 5 mg tablet (Eliquis) 5 mg PO BID 12/26/21 01/30/23 carvedilol 6.25 mg tablet 6.25 mg PO BID 12/26/21 01/30/23 digoxin 125 mcg (0.125 mg) tablet 125 mcg PO DAILY 12/26/21 01/30/23 furosemide 20 mg tablet 20 mg PO DAILY 12/26/21 01/30/23 prednisone 10 mg tablet 10 mg PO DAILY 12/26/21 01/30/23 ipratropium 0.5 mg-albuterol 3 mg 3 ml inhalation QID 05/01/22 01/30/23 (2.5 mg base)/3 mL nebulization soln Previous Rx's Medication Instructions Recorded acetaminophen 300 mg-codeine 30 mg 1 tab PO Q6H PRN pain #15 tabs 01/30/23 tablet Allergies Allergy/AdvReac Type Severity Reaction Status Date / Time No Known Drug Allergies Allergy Verified 01/30/23 08:45 Review of Systems Status of ROS: Reports: 10 or more systems reviewed and unremarkable except as noted in History and below Narrative: Constitutional: No weight gain or loss. He thinks that he did have a fever but did not measure his temperature. Eyes: No discharge. No vision changes. HENT: No congestion, no sore throat, no ear pain. Cardiovascular: No chest pain, no palpitations. Respiratory: On home oxygen typically at 3 liters/minute. He reports a cough. Gastrointestinal: No abdominal pain, no vomiting, no diarrhea. Genitourinary: No dysuria, no hematuria. Musculoskeletal: Normal range of motion. Skin: No rashes, no pruritis. Neurological: No dizziness, weakness, sensory change, speech change. Endo/Heme/Allergies: No bruising or bleeding. No polydipsia. Pysch: no suicidality, no anxiety, no insomnia. All other systems reviewed and are negative. [facility] Medical History (Updated 01/30/23 @ 10:22 by Karel Cummings MD) H/O cardiomyopathy ?Z86.79 - Personal history of other diseases of the circulatory system (ICD-10) Chronic anticoagulation ?Z79.01 - long term care administrator (current) use of anticoagulants (ICD-10) Uses bilevel positive airway pressure (BPAP) ventilation at home ?Z99.89 - Dependence on other enabling machines and devices (ICD-10) Thoracic compression fracture ?S22.000A - Wedge compression fracture of unspecified thoracic vertebra, initial encounter for closed fracture (ICD-10) Atrial fibrillation ?I48.91 - Unspecified atrial fibrillation (ICD-10) Oxygen dependent ?Z99.81 - Dependence on supplemental oxygen (ICD-10) Severe chronic obstructive pulmonary disease ?J44.9 - Chronic obstructive pulmonary disease, unspecified (ICD-10) Surgical History (Updated 05/01/22 @ 10:16 by Aimee Kaur MD) H/O vasectomy ?Z98.52 - Vasectomy status (ICD-10) H/O tympanomastoidectomy ?Z98.890 - Other specified postprocedural states (ICD-10) Social History (Updated 05/01/22 @ 11:44 by Aimee Kaur MD) 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 DNR/DNI. Smoking Status: Former smoker Do you use any of these nicotine containing products: None Nicotine containing products detail: [id number] 1ppd 2 cigs a day in 2019, nothing since 2020 Second hand tobacco smoke exposure: No How often do you have a drink containing alcohol: never How often do you have six or more drinks on one occasion: Never AUDIT-C Alcohol total score: 0 Non-prescribed substance use: denies use service: No Exam Narrative: Exam Narrative: Constitutional: Well-developed, well-nourished, no acute distress. HEENT: Normocephalic, atraumatic. Neck: Normal range of motion. Nontender. Supple. Heart: Regular. No murmurs. Normal rate. Intact distal pulses. Lungs: Decreased air movement. No use of accessory muscles for breathing. Abdomen: Normal bowel sounds. Nontender. No rebound tenderness. Genitalia: Deferred. Back: No midline tenderness. Normal range of motion. Extremities: Normal range of motion. No injury. Skin: Intact. No rash. Warm. No erythema or pallor. Neurologic: No altered sensation. No weakness. Alert and oriented. Psychiatric: No suicidality. No anxiety or depression. No insomnia. Nursing notes and vitals signs are reviewed. Const: Vital Signs, click to edit/add: Vital Signs - 24 hr 01/30/23 08:41 01/30/23 08:45 01/30/23 11:55 Temperature 99.5 F Pulse Rate [Pulse Oximeter] 78 Respiratory Rate 32 H Blood Pressure [Ri ght Upper Arm] 108/68 Pulse Oximetry 100 100 95 Oxygen Delivery Me thod Nasal Cannula Nasal Cannula Nasal Cannula Oxygen Flow Rate 5 5 2 Course Vital Signs Vital signs: Initial Vital Signs Temperature 99.5 F 01/30/23 08:41 Temperature Source Temporal Artery Scan 01/30/23 08:41 Pulse Rate 78 01/30/23 08:41 Pulse Rhythm Regular 01/30/23 08:41 Pulse Strength 3+ Normal 01/30/23 08:41 Respiratory Rate 32 H 01/30/23 08:41 Blood Pressure 108/68 01/30/23 08:41 Blood Pressure Mean 81 01/30/23 08:41 Blood Pressure Position Semi-Fowlers 01/30/23 08:41 Pulse Oximetry 100 01/30/23 08:41 Oxygen Delivery Method Nasal Cannula 01/30/23 08:41 Oxygen Flow Rate 5 01/30/23 08:41 Vital Signs Temperature 99.5 F 01/30/23 08:41 Pulse Rate 78 01/30/23 08:41 Respiratory Rate 32 H 01/30/23 08:41 Blood Pressure 108/68 01/30/23 08:41 Pulse Oximetry 100 01/30/23 08:41 Oxygen Delivery Method Nasal Cannula 01/30/23 08:41 Oxygen Flow Rate 5 01/30/23 08:41 Temperature 99.5 F 01/30/23 08:41 Pulse Rate 78 01/30/23 08:41 Respiratory Rate 32 H 01/30/23 08:41 Blood Pressure 108/68 01/30/23 08:41 Pulse Oximetry 95 01/30/23 11:55 Oxygen Delivery Method Nasal Cannula 01/30/23 11:55 Oxygen Flow Rate 2 01/30/23 11:55 Medications Administered Medications: Discontinued Medications Generic Name Dose Route Start Last Admin Trade Name Lizandro PRN Reason Stop Dose Admin Remdesivir 200 mg/ Sodium 290 mls @ 290 mls/hr 01/30/23 10:26 01/30/23 11:10 Chloride IVPB 01/30/23 11:25 290 mls/hr ONCE ONE Administration Medical Decision Making MDM Narrative Medical decision making narrative: This 77-year-old male comes in with report that his home test for COVID turned positive. He is on home oxygen typically at 3 liters/minute. He does have some increased shortness of breath with activity but while at rest he is maintaining good oximetry on 2 L here. His oximetry is at 95% with nasal cannula oxygen at 2 L. chest x-ray is obtained today which shows no significant changes compared to previous. His heart rate is in normal range. The patient is interested and Paxlovid but has some medications that would require modification and is on Eliquis which is contraindicated. So he did receive IV dose of remdesivir and arrangements are made for repeat dosing as over the next 2 days each. The patient does have home oxygen and is maintaining sufficient oximetry at 95% on 2 L nasal cannula. He is instructed to return tomorrow and the next day for repeat doses. He should return sooner if worsening symptoms happen. Lab Data Labs: Lab Results 01/30/23 Range/Units 10:46 WBC 7.52 (4.50-11.00) K/uL RBC 4.40 (4.30-5.90) m/uL Hgb 13.5 (13.5-17.5) gm/dL Hct 41.5 (37.0-53.0) % MCV 94 (80-100) fL MCH 31 (26-34) pg MCHC 33 (32-36) gm/dL RDW Coeff of Chinyere 13.1 (11.5-15.5) % Plt Count 245 (140-440) K/uL Neut % (Auto) 80.3 H (42.0-72.0) % Lymph % (Auto) 10.0 L (20-44) % [place]rick % (Auto) 8.9 (0.0-11.0) % Eos % (Auto) 0.1 (0.0-7.0) % Baso % (Auto) 0.4 (0.0-3.0) % Neut # (Auto) 6.00 (1.7-7.0) K/uL Lymph # (Auto) 0.80 L (0.90-2.90) K/uL Merrick # (Auto) 0.70 (0.00-0.90) K/UL Eos # (Auto) 0.01 (0.00-0.50) K/uL Baso # (Auto) 0.03 (0.00-0.30) K/uL Abs Immat Gran (auto) 0.02 (0.00-0.30) K/uL Imm/Tot Granulo (auto) 0.3 % Sodium 128 L (135-149) mmol/L Potassium 4.1 (3.6-5.1) mmol/L Chloride 85 L (96-114) mmol/L Carbon Dioxide 39 H (20-32) mmol/L Anion Gap 4 L (7-15) mEq/L BUN 16 (7-30) mg/dL Creatinine 0.6 (0.5-1.5) mg/dL Estimated Creat Clear 51.50 Estimated GFR 98 ml/min Glucose 112 (60-115) mg/dL Calcium 9.2 (8.4-10.6) mg/dL Discharge Plan Discharge Clinical Impression: COVID-19, Severe chronic obstructive pulmonary disease Patient Disposition: Home w/ Parent or Adult Condition: Stable Instructions: COVID-19 and Chronic Health Conditions (ED) Additional Instructions: Return on January 31 and for repeat dosings of remdesivir. Enter through the Emergency Room entrance and they will direct you to stay in the ER or go to the medical/surgical floor. Please arrive between 11-Noon. Take Tylenol 3 as needed and directed for symptomatic relief. Prescriptions: New acetaminophen-codeine 300-30 mg tablet 1 tab PO Q6H PRN (Reason: pain) Qty: 15 0RF No Action prednisone 10 mg tablet 10 mg PO DAILY Hold Instructions: Resume on 05/25/22. Dr. Eaton to address future dose at appt. Patient Comments: Take 1 Tablet (10 mg) by mouth once daily with a meal. furosemide 20 mg tablet 20 mg PO DAILY Patient Comments: Take 1 Tablet (20 mg) by mouth 2 times daily. carvedilol 6.25 mg tablet 6.25 mg PO BID Patient Comments: Take 1 Tablet (6.25 mg) by mouth 2 times daily. Eliquis 5 mg tablet 5 mg PO BID Patient Comments: Take 1 Tablet (5 mg) by mouth 2 times daily. digoxin 125 mcg (0.125 mg) tablet 125 mcg PO DAILY Patient Comments: Take 1 Tablet (125 mcg) by mouth once daily. ipratropium-albuterol 0.5 mg-3 mg(2.5 mg base)/3 mL solution for nebulization 3 ml INHALATION QID Follow Up/Referrals: Isidro Siegel MD [Primary Care Provider] - Stand Alone Forms: [facility] Info Instructions
[2023-01-30 10:58] LABS: Basophils Absolute Auto 0.03 K/uL (0.00-0.30); Basophils Percent Auto 0.4 % (0.0-3.0); Eosinophils Absolute Auto 0.01 K/uL (0.00-0.50); Eosinophils Percent Auto 0.1 % (0.0-7.0); Hematocrit 41.5 % (37.0-53.0); Hemoglobin* 13.5 gm/dL (13.5-17.5); Immature Granulocytes Abs Auto 0.02 K/uL (0.00-0.30); Immature Granulocytes Pct Auto 0.3 %; Mean Corpuscular HGB Conc 33 gm/dL (32-36); Mean Corpuscular Hemoglobin 31 pg (26-34); Mean Corpuscular Volume 94 fL (80-100); Monocytes Percent Auto 8.9 % (0.0-11.0); Neutrophils Percent Auto 80.3 % (42.0-72.0); Platelet Count* 245 K/uL (140-440); RDW Coefficient of Variation % 13.1 % (11.5-15.5); White Blood Count* 7.52 K/uL (4.50-11.00)
[2023-01-30 11:05] LABS: Slide Review Reflex No
[2023-01-30 11:15] LABS: Chloride* 85 mmol/L (96-114); Sodium* 128 mmol/L (135-149)
[2023-01-30 11:16] LABS: Potassium* 4.1 mmol/L (3.6-5.1)
[2023-01-30 11:18] LABS: Creatinine* 0.6 mg/dL (0.5-1.5); Estimated Glomerular Filt Rate 98 ml/min
[2023-01-30 11:19] LABS: Anion Gap 4 mEq/L (7-15); Blood Urea Nitrogen* 16 mg/dL (7-30); Calcium* 9.2 mg/dL (8.4-10.6); Carbon Dioxide* 39 mmol/L (20-32); Glucose* 112 mg/dL (60-115)
[2023-01-30 13:14] LABS: HCO3 VBG 37 mmol/L (21-28); Lactate* 0.9 mmol/L (0.5-1.9); PCO2 VBG 58 mmHG (40-50); PO2 VBG 34.9 mmHG (25-47)
[2023-01-30 13:25] LABS: Troponin, Point-of-Care* 0.01 ng/ml (0.01-0.04)
[2023-01-30 13:47] LABS: Troponin I* 0.02 ng/mL (0.01-0.04)
[2023-01-30 13:55] LABS: D Dimer Quantitative* < 0.27 ug/ml (0.00-0.50)
--- NOTE | 2023-01-30 14:04 | ED.NURSE ---
report given to med-surg, pt will transfer to room 280 via cart
[2023-01-30 14:22] LABS: PCR FLU A Negative PCR FLU A (Negative); PCR FLU B Negative PCR FLU B (Negative); PCR RSV Negative PCR RSV (Negative)
[2023-01-30 14:28] LABS: SARS PCR* POSITIVE SARS-CoV-2 (Negative)
--- NOTE | 2023-01-30 15:38 | P.IMHP_ITS ---
Hospitalist- H&P: HPI History of Present Illness Date Seen: 01/30/23 Chief complaint: Covid + Narrative: Tip Flowers is a 77 year old male with O2 and steroid dependent COPD presents with 2 day history of worsening dyspnea and COVID infection. Patient has chronic dyspnea from severe COPD. He uses oxygen at 3 L per nasal cannula and has very poor exercise tolerance on a good day. In the last 2 days he reports worsening dyspnea and almost unable to do any activity secondary to dyspnea. He is also on a trilogy BiPAP that he uses at night. He lives with his son who also has COVID infection. He was last hospitalized here in April for COPD exacerbation. He has both chronic hypoxia and chronic hypercarbia/hypoventilation requiring the use of trilogy BiPAP at night. He has been on inhaled steroids and Laba but these were stopped due to cost. He is not aware of any fever. He reports no other symptoms of illness. Review of Systems Narrative: Other than last 2 days of illness he reports being at baseline which is quite restricted in activity due to dyspnea [facility] Medical History H/O cardiomyopathy ?Z86.79 - Personal history of other diseases of the circulatory system (ICD- 10) Chronic anticoagulation ?Z79.01 - intermediate manager (current) use of anticoagulants (ICD-10) Uses bilevel positive airway pressure (BPAP) ventilation at home ?Z99.89 - Dependence on other enabling machines and devices (ICD-10) Thoracic compression fracture ?S22.000A - Wedge compression fracture of unspecified thoracic vertebra, initial encounter for closed fracture (ICD-10) Atrial fibrillation ?I48.91 - Unspecified atrial fibrillation (ICD-10) Oxygen dependent ?Z99.81 - Dependence on supplemental oxygen (ICD-10) Severe chronic obstructive pulmonary disease ?J44.9 - Chronic obstructive pulmonary disease, unspecified (ICD-10) Surgical History H/O vasectomy ?Z98.52 - Vasectomy status (ICD-10) H/O tympanomastoidectomy ?Z98.890 - Other specified postprocedural states (ICD-10) Social History (Updated 01/30/23 @ 15:44 by Bertram Varghese MD) 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 DNR/DNI. Former smoker, about 24 pack years. Rarely drinks alcohol What is your current living situation?: I presently have a place to live Problems where you live: no known problems Problems where you live details: na In the past 12 months, utilities in danger of being shut off: no In past 12 months, lack of transportation kept you from medical appts, meetings, work, or getting things needed for daily living: no In the past 12 mos, have been you worried that your food would run out before you had money to buy more?: never true In the past 12 mos, the food you bought just didn't last and you didn't have money to buy more?: never true Highest level of school completed/degree received: high school graduate Smoking Status: Former smoker What tobacco products do you use: cigarettes Smoking quit date/years: <= 15 years ago Do you use any of these nicotine containing products: None Nicotine containing products detail: [id number] 1ppd 2 cigs a day in 2019, nothing since 2020 Second hand tobacco smoke exposure: No How often do you have a drink containing alcohol: never How often do you have six or more drinks on one occasion: Never AUDIT-C Alcohol total score: 0 Non-prescribed substance use: denies use Caffeine: No How often does anyone, including family, friends and others, physically hurt you : never How often does anyone, including family, friends and others, insult or talk down to you: never How often does anyone, including family, friends and others, threaten you with harm: never How often does anyone, including family, friends and others, scream or curse at you: never service: No Meds Home Medications and Allergies Home Medications Medication Instructions Recorded Confirmed Type apixaban 5 mg tablet (Eliquis) 5 mg PO BID 12/26/21 01/30/23 History carvedilol 6.25 mg tablet 6.25 mg PO BID 12/26/21 01/30/23 History digoxin 125 mcg (0.125 mg) tablet 125 mcg PO DAILY 12/26/21 01/30/23 History furosemide 20 mg tablet 20 mg PO DAILY 12/26/21 01/30/23 History prednisone 10 mg tablet 10 mg PO DAILY 12/26/21 01/30/23 History ipratropium 0.5 mg-albuterol 3 mg 3 ml inhalation QID 05/01/22 01/30/23 History (2.5 mg base)/3 mL nebulization soln Allergies Allergy/AdvReac Type Severity Reaction Status Date / Time No Known Drug Allergies Allergy Verified 01/30/23 08:45 Exam Narrative: Exam Narrative: He is alert and appears in moderate respiratory distress. He has pursed lip breathing with tachypnea. Obvious prolonged expiratory phase and audible wheezing. Sitting in a tripod position. Eyes normal. Oropharynx with dentures. No mucosal abnormality. Neck is supple out mass or adenopathy. Respirations with marked decreased breath sounds in all lung mackey. Prolonged expiratory phase with an I to E ratio of 1-3. No consolidation. Cardiovascular: S1, S2, relatively regular rhythm. Abdomen is soft without tenderness or mass. Extremities with trace edema in his feet. He has compression stockings in place. Diminished but present pedal pulses. Feet are warm to touch. Const: Vital Signs, click to edit/add: Vital Signs - 24 hr 01/30/23 08:41 01/30/23 08:45 01/30/23 11:55 Temperature 99.5 F Pulse Rate Pulse Rate [Pulse Oximeter] 78 Pulse Rate [Right Pulse Oximeter] Respiratory Rate 32 H Blood Pressure Blood Pressure [Ri ght Arm] Blood Pressure [Ri ght Upper Arm] 108/68 Pulse Oximetry 100 100 95 Oxygen Delivery Me thod Nasal Cannula Nasal Cannula Nasal Cannula Oxygen Flow Rate 5 5 2 Fraction of Inspir ed Oxygen 01/30/23 12:57 01/30/23 13:00 01/30/23 13:01 Temperature Pulse Rate 75 58 L 59 L Pulse Rate [Pulse Oximeter] Pulse Rate [Right Pulse Oximeter] Respiratory Rate Blood Pressure 101/63 Blood Pressure [Ri ght Arm] Blood Pressure [Ri ght Upper Arm] Pulse Oximetry 80 L 90 91 Oxygen Delivery Me thod High Flow Nasal Ca nnula Oxygen Flow Rate 30 Fraction of Inspir ed Oxygen 40 01/30/23 13:30 01/30/23 13:32 01/30/23 14:00 Temperature Pulse Rate 67 68 64 Pulse Rate [Pulse Oximeter] Pulse Rate [Right Pulse Oximeter] Respiratory Rate Blood Pressure 109/76 Blood Pressure [Ri ght Arm] Blood Pressure [Ri ght Upper Arm] Pulse Oximetry 87 L 90 93 Oxygen Delivery Me thod Oxygen Flow Rate Fraction of Inspir ed Oxygen 01/30/23 14:01 01/30/23 14:30 01/30/23 14:30 Temperature 97.9 F Pulse Rate 60 Pulse Rate [Pulse Oximeter] Pulse Rate [Right Pulse Oximeter] 69 Respiratory Rate 22 22 Blood Pressure 105/65 Blood Pressure [Ri ght Arm] 123/73 Blood Pressure [Ri ght Upper Arm] Pulse Oximetry 93 90 90 Oxygen Delivery Me thod High Flow Nasal Ca nnula High Flow Nasal Ca nnula Oxygen Flow Rate 30 30 Fraction of Inspir ed Oxygen 30 30 Documenting provider has reviewed patient's vital signs: yes Hospitalist - H&P: Result Labs Labs: Short CBC 01/30/23 Range/Units 10:46 WBC 7.52 (4.50-11.00) K/uL Hgb 13.5 (13.5-17.5) gm/dL Hct 41.5 (37.0-53.0) % Plt Count 245 (140-440) K/uL BMP 01/30/23 10:46 Sodium 128 L Potassium 4.1 Chloride 85 L Carbon Dioxide 39 H BUN 16 Creatinine 0.6 Glucose 112 Calcium 9.2 Cardiac Enzymes 01/30/23 01/30/23 Range/Units 10:46 13:08 Troponin I Cancelled 0.02 Assessment and Plan Assessment and plan (1) COVID-19: Problem comment: Sick for 2 days. Remdesivir and increased steroid to dexamethasone 6 mg daily. High risk for decompensation Status: Acute (2) Chronic respiratory failure with hypoxia and hypercapnia: Problem comment: Acute on chronic respiratory failure today Status: Acute (3) Severe chronic obstructive pulmonary disease: Problem comment: -as above Gold E. Severe COPD/emphysema. Bilateral scarring. Oxygen and prednisone dependent. Duonebs 4x/day; Breo Ellipta, proventil prn Followed by Dr. Shakeel Eaton, Pulmonary Medicine [facility] Last PFT was in February of 2018 --FEV1 predicted 32%, FEV1/FVC% 44.21 Status: Acute (4) Atrial fibrillation: Problem comment: -currently in sinus, rate controlled. Troponin negative. -on coreg, digoxin, eliquis 05/26 at [facility] Limited Echocardiogram performed 1. Normal LV size, normal global systolic function with an estimated EF of 65 - 70%. 2. Technically difficult exam. 3. Technically limited exam. Chamber Sizes and Function Normal left ventricular size, normal global systolic function with an estimated EF of 65 - 70%. Status: Acute (5) On prednisone therapy: Problem comment: Chronic daily prednisone 10 mg daily. Previously has not done well with attempts to taper. Monitor for adrenal crisis. Increased steroid to dexamethasone 6 mg daily Status: Acute (6) Oxygen dependent: Problem comment: 3L at home; CO2 retention hx. Trilogy BiPAP at night Status: Acute Plan Patient is admitted to the hospital for COPD exacerbation with COVID infection. Patient is high risk for decompensation and worsening respiratory failure. Will have his son bring in his trilogy BiPAP to use at night and as needed when resting during the day. Total time spent today is 80 minutes, 60 minutes in coordination of care and discussing with patient son and other providers management of hypoxic and ventilatory respiratory failure and COVID
[2023-01-30] MEDS: dexAMETHasone 2 MG TABLET 6 MG PO (15:50)
[2023-01-30] MEDS: IPRAT-ALBUT 0.5-2.5 MG/3 ML NEB 1 NEB IH ×2 (18:44→22:42)
--- NOTE | 2023-01-30 20:29 | RESP.RT ---
Patient on .35HFNC at 30Lpm and Home Trilogy BiPAP calibrated and set up in room. Son dropped off Trilogy, but water was hooked up and filters got wet. Replaced filters with new ones. Trilogy functioning properly.
--- NOTE | 2023-01-30 20:41 | PC.NURSE ---
Nursing Care Hours: [id number] Pt this shift arrived from ED on stretcher. Alert and oriented, pleasant and cooperative. Pursed lip breathing noted. High flow adjusted to keep sats above 90%. VSS. No c/o pain. Eating and drinking.
[2023-01-30] MEDS: carvediloL 6.25 MG TABLET PO (21:19)
[2023-01-30] MEDS: APIXABAN 5 MG TABLET PO (21:20)
[2023-01-30] MEDS: SODIUM CHLORIDE 0.9 % (FLUSH) 10 ML SYRINGE 5 ML IVF (22:45)
[2023-01-31] VITALS (12 sets, daily range): BP systolic 105–150; BP diastolic 62–91; PULSE 51–65; RESP 18–24; TEMP 36.4–36.6; O2SAT 90–96
--- NOTE | 2023-01-31 05:24 | PC.NURSE ---
Patient pleasant, alert and oriented. Denied pain. Continent of urine. Stood with gait belt and assist of one at bedside to?use urinal. BiPap placed at NOC.?
[2023-01-31] MEDS: SODIUM CHLORIDE 0.9 % (FLUSH) 10 ML SYRINGE 5 ML IVF ×2 (09:40→20:55)
[2023-01-31] MEDS: IPRAT-ALBUT 0.5-2.5 MG/3 ML NEB 1 NEB IH ×3 (09:40→20:54)
[2023-01-31] MEDS: carvediloL 6.25 MG TABLET PO ×2 (09:40→20:54)
[2023-01-31] MEDS: APIXABAN 5 MG TABLET PO ×2 (09:40→20:54)
[2023-01-31] MEDS: FUROSEMIDE 20 MG TABLET PO (09:40)
--- NOTE | 2023-01-31 13:22 | RESP.RT ---
Pt on 4L NC, with SPO2 of 95%. Turned him down to 3L which is his home prescription. SPO2 92-95%. Did Cardiac calisthenics with him. 3 reps of 7 up and down, and [place] style. Pt did not purse lip breath during them. RR 16. Prolonged expiratory phase. Pt SPO2 92%. Strong congested CLINICAL UNIT EDUCATOR cough. Reviewed trilogy unit with pt, which he works well with. It is a new model, and does not appear to be on recall. He reports his neb machine is not working well at home, but can't explain why. He says there are too many things in the house to keep track of. He reports turning oxygen up to 4L as he feels he needs it. Last PFTs are noted, he is followed by [facility]. It appears he is in end stage COPD, discussion about pulmonary hospice may be indicated by primary care.
[2023-01-31] MEDS: dexAMETHasone 2 MG TABLET 6 MG PO (15:06)
--- NOTE | 2023-01-31 15:31 | P.IMPN_ITS ---
Progress Note: A&P Assessment and plan (1) COVID-19: Problem details: Sick for 2 days. Remdesivir and increased steroid to dexamethasone 6 mg daily. High risk for decompensation. Status: Acute (2) Chronic respiratory failure with hypoxia and hypercapnia: Problem details: Acute on chronic respiratory failure today. Wean off oxygen as tolerated Status: Acute (3) Severe chronic obstructive pulmonary disease: Problem details: -as above Gold E. Severe COPD/emphysema. Bilateral scarring. Oxygen and prednisone dependent. Duonebs 4x/day; Breo Ellipta, proventil prn Followed by Dr. Shakeel Eaton, Pulmonary Medicine [facility] Last PFT was in February of 2018 --FEV1 predicted 32%, FEV1/FVC% 44.21 Status: Acute (4) Atrial fibrillation: Problem details: -currently in sinus, rate controlled. Troponin negative. -on coreg, eliquis. Stop digoxin temporarily to see if required for rate control. Currently [facility]cardic 05/[address] [facility] Limited Echocardiogram performed 1. Normal LV size, normal global systolic function with an estimated EF of 65 - 70%. 2. Technically difficult exam. 3. Technically limited exam. Chamber Sizes and Function Normal left ventricular size, normal global systolic function with an estimated EF of 65 - 70%. Status: Acute (5) On prednisone therapy: Problem details: Chronic daily prednisone 10 mg daily. Previously has not done well with attempts to taper. Monitor for adrenal crisis. Increased steroid to dexamethasone 6 mg daily Status: Acute (6) Oxygen dependent: Problem details: 3L at home; CO2 retention hx. Trilogy BiPAP at night Status: Acute Plan Continue in hospital for management of respiratory failure and COVID infection. Anticipate discharge to home when clinically improving. Time Spent With Patient Total time spent: Total time spent today is 40 minutes, 30 minutes in coordination care discussing with patient and other providers management of respiratory failure Subjective Date Seen: 01/31/23 Interval history: 77-year-old male with COPD with chronic hypoxic and ventilatory respiratory failure on home O2 and trilogy BiPAP at night and chronic prednisone is seen in followup of hospital admission for COPD exacerbation secondary to COVID. Patient thinks he is a little better today. He was on high-flow oxygen yesterday and is now weaned off onto regular nasal cannula at 3 L per nasal cannula. He reports still being dyspneic at rest but thinks his low better than yesterday. He is not aware of any fever. Cough is not particularly productive. He reports a diminished appetite but he has been able to eat and drink. Nursing staff note that he has been mildly bradycardic. He is on chronic digoxin. Also on carvedilol. Digoxin level 1.0 on admission Exam Narrative: Exam Narrative: He is alert and appears in mild respiratory distress. Still has pursed lip breathing. Still has increased rate and work of breathing though improved since yesterday. Respirations with marked decreased breath sounds and prolonged expiratory phase. Extra wheezing and basilar crackles noted. Cardiovascular: S1, S2, relatively regular rhythm. No murmur gallop or rub. Abdomen is soft without tenderness or mass. Extremities without edema Const: Vital Signs, click to edit/add: Vital Signs - 24 hr 01/30/23 16:31 01/30/23 18:31 01/30/23 19:00 Temperature 98.3 F Pulse Rate Pulse Rate [Right Pulse Oximeter] 69 Respiratory Rate 17 Blood Pressure [Ri ght Arm] 127/68 Pulse Oximetry 97 Oxygen Delivery Me thod High Flow Nasal Ca nnula Oxygen Flow Rate 30 30 Fraction of Inspir ed Oxygen 35 35 35 01/30/23 20:00 01/30/23 22:00 01/30/23 22:52 Temperature 97.7 F Pulse Rate Pulse Rate [Right Pulse Oximeter] 60 Respiratory Rate 17 Blood Pressure [Ri ght Arm] 99/55 L Pulse Oximetry 95 Oxygen Delivery Me thod High Flow Nasal Ca nnula Oxygen Flow Rate 30 Fraction of Inspir ed Oxygen 35 35 35 01/30/23 23:00 01/31/23 02:39 01/31/23 07:00 Temperature 97.5 F L Pulse Rate 51 L 52 L Pulse Rate [Right Pulse Oximeter] 54 L Respiratory Rate 20 Blood Pressure [Ri ght Arm] 110/62 Pulse Oximetry Oxygen Delivery Me thod Oxygen Flow Rate Fraction of Inspir ed Oxygen 01/31/23 09:15 01/31/23 09:30 01/31/23 09:56 Temperature 97.8 F Pulse Rate 58 L Pulse Rate [Right Pulse Oximeter] 56 L Respiratory Rate 18 20 Blood Pressure [Ri ght Arm] 105/70 Pulse Oximetry 94 93 Oxygen Delivery Me thod Nasal Cannula Nasal Cannula Oxygen Flow Rate 5 4 Fraction of Inspir ed Oxygen 01/31/23 11:00 01/31/23 15:00 Temperature 97.5 F L 97.8 F Pulse Rate Pulse Rate [Right Pulse Oximeter] 65 58 L Respiratory Rate 24 20 Blood Pressure [Ri ght Arm] 150/91 H 128/69 Pulse Oximetry 94 95 Oxygen Delivery Me thod Nasal Cannula Nasal Cannula Oxygen Flow Rate 3.5 3 Fraction of Inspir ed Oxygen Documenting provider has reviewed patient's vital signs: yes Labs Labs: Laboratory Results - last 24 hr 01/30/23 13:08 Digoxin 1.0
[2023-01-31] MEDS: SODIUM CHLORIDE 1 GM TABLET PO (17:55)
--- NOTE | 2023-01-31 18:07 | PC.NURSE ---
[id number]: The patient is A & O, VSS on now 2L via nasal cannula. Pursed lip breathing and SOB with exertion due to end stage COPD. Tele in place 1st degree heart blovk
--- NOTE | 2023-01-31 18:09 | PC.NURSE ---
700-1900: Patient is alert and orientated. VSS on 2 L of NC, chronically on O2 due to end stage COPD. Oxygen demand has decreased he was titrated off of high flow today. Per Gunnar O2 stats should be 88-90 due to COPD. Pursed lip breathing was noted throughout the shift. The patient states he feels like I'm not getting enough air. No pain reported throughout the day. He is most comfortable sitting upright in the bed... he did not want to get up to the chair because he states that he gets to SOB when he walks that much. Tele in place... 1st degree heart block with bradycardia intermittently throughout the day. Per Dr Varghese we held the digoxin. Continent of bladder and bowl at bedside commode. 2 BM's today... calls appropriately. Denied lunch.. eating dinner now. Does not like water only drinks diet coke. FR of [address] due to low sodium. Call light within reach. His son Escobar called today and I gave him an update. Kenyatta SEGOVIA BSN
[2023-02-01] VITALS (9 sets, daily range): BP systolic 99–128; BP diastolic 59–83; PULSE 46–90; RESP 16–24; TEMP 36.3–36.8; O2SAT 93–96
[2023-02-01 06:42] LABS: Basophils Absolute Auto 0.01 K/uL (0.00-0.30); Basophils Percent Auto 0.2 % (0.0-3.0); HCO3 VBG 37 mmol/L (21-28); Hematocrit 39.8 % (37.0-53.0); Immature Granulocytes Abs Auto 0.01 K/uL (0.00-0.30); Immature Granulocytes Pct Auto 0.2 %; Lymphocytes Percent Auto 15.9 % (20-44); Mean Corpuscular HGB Conc 33 gm/dL (32-36); Mean Corpuscular Hemoglobin 31 pg (26-34); Mean Corpuscular Volume 95 fL (80-100); Monocytes Percent Auto 8.2 % (0.0-11.0); Neutrophils Percent Auto 75.5 % (42.0-72.0); PCO2 VBG 60 mmHG (40-50); PO2 VBG 39.7 mmHG (25-47); Platelet Count* 252 K/uL (140-440); RDW Coefficient of Variation % 13.4 % (11.5-15.5); Red Blood Count 4.21 m/uL (4.30-5.90); White Blood Count* 5.35 K/uL (4.50-11.00); pH VBG 7.396 (7.32-7.43)
[2023-02-01 06:58] LABS: Slide Review Reflex No
--- NOTE | 2023-02-01 07:02 | PC.NURSE ---
End of shift [id number]: A&O pleasant and cooperative. Bradycardic but asymptomatic throughout shift. At the beginning of shift pt on 2L of O2 to maintain sat between 88-91%, Early this morning pt?s sats >90%. Pt was titrated down to 1L and tolerating well. Pt used home BIPAP until around 0300. He requested to take it off at that time. SBA to use the urinal at the bedside. Denies pain. Pt visible short of breath w/ any sort of activity and saturations drop to low 80s. Pt does recover quite quickly. Uses call light appropriately.
[2023-02-01 07:14] LABS: Chloride* 92 mmol/L (96-114)
[2023-02-01 07:15] LABS: Potassium* 3.9 mmol/L (3.6-5.1); Sodium* 131 mmol/L (135-149)
[2023-02-01 07:17] LABS: Anion Gap 4 mEq/L (7-15); Carbon Dioxide* 35 mmol/L (20-32); Creatinine* 0.6 mg/dL (0.5-1.5); Est. Creatinine Clearance* 50.44; Estimated Glomerular Filt Rate 98 ml/min
[2023-02-01 07:18] LABS: Blood Urea Nitrogen* 25 mg/dL (7-30); Calcium* 8.9 mg/dL (8.4-10.6); Glucose* 114 mg/dL (60-115)
[2023-02-01] MEDS: IPRAT-ALBUT 0.5-2.5 MG/3 ML NEB 1 NEB IH ×4 (09:02→20:36)
[2023-02-01] MEDS: carvediloL 6.25 MG TABLET PO ×2 (09:02→20:35)
[2023-02-01] MEDS: APIXABAN 5 MG TABLET PO ×2 (09:02→20:35)
[2023-02-01] MEDS: FUROSEMIDE 20 MG TABLET PO (09:02)
[2023-02-01] MEDS: SODIUM CHLORIDE 1 GM TABLET PO ×3 (09:03→17:15)
--- NOTE | 2023-02-01 12:48 | P.IMPN_ITS ---
Progress Note: A&P Assessment and plan (1) COVID-19: Problem details: Sick for 2 days. Has completed 3 days of remdesivir. Continue dexamethasone until discharge at which time he can return to prednisone 10 mg daily Status: Acute (2) Chronic respiratory failure with hypoxia and hypercapnia: Problem details: Acute on chronic respiratory failure today. Wean off oxygen as tolerated Status: Acute (3) Severe chronic obstructive pulmonary disease: Problem details: -as above Gold E. Severe COPD/emphysema. Bilateral scarring. Oxygen and prednisone dependent. Duonebs 4x/day; Breo Ellipta, proventil prn Followed by Dr. Shakeel Eaton, Pulmonary Medicine [facility] Last PFT was in February of 2018 --FEV1 predicted 32%, FEV1/FVC% 44.21 Status: Acute (4) Atrial fibrillation: Problem details: -currently in sinus, rate controlled. Troponin negative. -on coreg, eliquis. Stop digoxin temporarily to see if required for rate control. Currently bradycardic 05/26 at [facility] Limited Echocardiogram performed 1. Normal LV size, normal global systolic function with an estimated EF of 65 - 70%. 2. Technically difficult exam. 3. Technically limited exam. Chamber Sizes and Function Normal left ventricular size, normal global systolic function with an estimated EF of 65 - 70%. Status: Acute (5) On prednisone therapy: Problem details: Chronic daily prednisone 10 mg daily. Previously has not done well with attempts to taper. Monitor for adrenal crisis. Increased steroid to dexamethasone 6 mg daily Status: Acute (6) Oxygen dependent: Problem details: 3L at home; CO2 retention hx. Trilogy BiPAP at night Status: Acute (7) Debility: Problem details: Patient reports being quite weak and poorly mobile. He also notes that he is quite dyspneic with any activity at home even when he is feeling well. Therapy to assess ability to return home to live independently with his son Status: Acute (8) Bradycardia: Problem details: stop digoxin and monitor Status: Acute Plan Continue in-hospital assessment of his respiratory distress and COPD exacerbation and COVID infection. Assess for his ability to perform ADLs if he is discharged to home with his son. Monitor for complications or worsening respiratory distress. Time Spent With Patient Total time spent: Total time spent today is 40 minutes, 30 minutes in coordination of care and discussing with patient and other providers ongoing management of COPD, COVID, bradycardia Subjective Date Seen: 02/01/23 Interval history: 77-year-old male with COPD with chronic hypoxic and ventilatory respiratory failure on home O2 and trilogy BiPAP at night and chronic prednisone is seen in followup of hospital admission for COPD exacerbation secondary to COVID. Patient thinks he is a little better today. He was on high-flow oxygen yesterday and is now weaned off onto regular nasal cannula at 3 L per nasal cannula. He reports still being dyspneic at rest but thinks his low better than yesterday. He is not aware of any fever. Cough is not particularly productive. He reports a diminished appetite but he has been able to eat and drink. Nursing staff note that he has been mildly bradycardic. He is on chronic digoxin. Also on carvedilol. Digoxin level 1.0 on admission Exam Narrative: Exam Narrative: He is alert and appears in no mild distress with increased work of breathing. His O2 sat is 96% on 2.5 L per nasal cannula. His work and rate of breathing have improved over the last 2 days. Still continues occasional pursed lip breathing. He reports no fever or chest pain. Minimal nonproductive cough. He is able to eat but reports less than usual appetite.. Const: Vital Signs, click to edit/add: Vital Signs - 24 hr 01/31/23 15:00 01/31/23 15:00 01/31/23 15:00 Temperature 97.8 F Pulse Rate 51 L Pulse Rate [Right Pulse Oximeter] 58 L Respiratory Rate 20 20 Blood Pressure [Ri t Arm] 128/69 Pulse Oximetry 95 96 Oxygen Delivery Me thod Nasal Cannula Nasal Cannula Oxygen Flow Rate 3 3 01/31/23 17:45 01/31/23 19:44 01/31/23 23:00 Temperature 97.7 F 97.9 F Pulse Rate Pulse Rate [Right Pulse Oximeter] 64 62 Respiratory Rate 22 18 18 Blood Pressure [Ri ght Arm] 118/68 112/70 Pulse Oximetry 90 91 94 Oxygen Delivery Me thod Nasal Cannula Nasal Cannula Nasal Cannula Oxygen Flow Rate 2 2 2 01/31/23 23:50 01/31/23 23:58 02/01/23 03:27 Temperature Pulse Rate 53 L Pulse Rate [Right Pulse Oximeter] 51 L Respiratory Rate 18 16 Blood Pressure [Ri ght Arm] 99/64 Pulse Oximetry 94 94 Oxygen Delivery Me thod Nasal Cannula BiPAP Oxygen Flow Rate 2 02/01/23 04:24 02/01/23 04:25 Temperature Pulse Rate Pulse Rate [Right Pulse Oximeter] Respiratory Rate Blood Pressure [Ri ght Arm] Pulse Oximetry 96 93 Oxygen Delivery Me thod Nasal Cannula Room Air Oxygen Flow Rate 2 1 Documenting provider has reviewed patient's vital signs: yes Labs Labs: Laboratory Results - last 24 hr 02/01/23 06:16 WBC 5.35 RBC 4.21 L Hgb 13.0 L Hct 39.8 MCV 95 MCH 31 MCHC 33 RDW Coeff of [place] 13.4 Plt Count 252 Neut % (Auto) 75.5 H Lymph % (Auto) 15.9 L [place] % (Auto) 8.2 Eos % (Auto) 0.0 Baso % (Auto) 0.2 Neut # (Auto) 4.00 Lymph # (Auto) 0.90 [place] # (Auto) 0.40 Eos # (Auto) 0.00 Baso # (Auto) 0.01 Abs Immat Gran (auto) 0.01 Imm/Tot Granulo (auto) 0.2 VBG pH 7.396 VBG pCO2 60 H VBG pO2 39.7 VBG HCO3 37 H Sodium 131 L Potassium 3.9 Chloride 92 L Carbon Dioxide 35 H Anion Gap 4 L BUN 25 Creatinine 0.6 Estimated Creat Clear 50.44 Estimated GFR 98 Glucose 114 Calcium 8.9
[2023-02-01] MEDS: SODIUM CHLORIDE 0.9 % (FLUSH) 10 ML SYRINGE 5 ML IVF ×2 (14:19→20:36)
[2023-02-01] MEDS: dexAMETHasone 2 MG TABLET 6 MG PO (14:19)
--- NOTE | 2023-02-01 15:54 | PC.NURSE ---
RN updated pt's son Escobar @ @ 0495 today. New orders frm Dr. Varghese to increase patient's avtivity. Covid protocol initiated and followed. Pt is using 3L/NC and he should be bumped up to 4L/NC with activity per Dr. Varghese. Pt dyspneic with urinal use, taking pills and using BSC. End stage COPD. C-diff sample needs to be collected, supplies placed in patient's bathroom and he is aware that nursing needs to collect his next BM. Pt continues on a 1500 cc fluid restriction. Request made for 14 foot extension tubing. Report to Tran Lynn RN for evening shift.
--- NOTE | 2023-02-01 22:30 | PC.NURSE ---
Shift [id number]- Patient denies pain. He remains on 3L O2 with saturations low-mid 90s%. He requests to ambulate within room, which was done with SBA. Tolerates well with some SOB, pursed lip breathing. O2 saturation at 90% upon return. Heart rate visualized with periodic episodes up to 130s BPM, patient asymptomatic. Returns to <100BPM within a few minutes or less without additional intervention. Provider aware. Occasional cough noted.
[2023-02-02 03:00] VITALS: BP 119/75; PULSE 59; RESP 20; TEMP 36.6; O2SAT 93
--- NOTE | 2023-02-02 06:01 | PC.NURSE ---
End of shift [id number]: Pt A&O, afebrile and VSS overnight. O2 maintained on patient?s baseline of 3L NC until he put his BiPap on around 0100. Pt ambulates SBA at bedside to use urinal. Independent with bed mobility. TELE reads SB rate in the 40s-50s. PIV in right FA SL, dressing changed d/t copious amount of dried blood under tegaderm ? now C/D/I. Pt denies any pain, nausea or lightheadedness. Pt did not allow RN to calibrate BiPaP or place his dentures in a cup, reports he did not want anything touched. His BiPap machine self calibrates at 0100 and is being remotely monitored. Pt reports SOB w/ exertion but not at rest, continues pursed lip breathing. Total intake: 122 mL and total output: 400 mL. Pt slept well in between cares. No bowel movement overnight so unable to collect stool sample. Pt reports feeling back to baseline and is hopeful to discharge home today with his son and [id number] assisting him at home. ?
[2023-02-02 06:31] LABS: HCO3 VBG 37 mmol/L (21-28); PCO2 VBG 59 mmHG (40-50); PO2 VBG 24.5 mmHG (25-47); pH VBG 7.407 (7.32-7.43)
[2023-02-02 06:53] LABS: Chloride* 95 mmol/L (96-114); Potassium* 3.9 mmol/L (3.6-5.1); Sodium* 134 mmol/L (135-149)
[2023-02-02 06:56] LABS: Anion Gap 4 mEq/L (7-15); Blood Urea Nitrogen* 23 mg/dL (7-30); Carbon Dioxide* 35 mmol/L (20-32); Creatinine* 0.6 mg/dL (0.5-1.5); Est. Creatinine Clearance* 50.88; Estimated Glomerular Filt Rate 98 ml/min
[2023-02-02 06:57] LABS: Calcium* 8.7 mg/dL (8.4-10.6); Glucose* 105 mg/dL (60-115)
[2023-02-02 07:00] VITALS: BP 124/80; PULSE 48; PULSE 52; RESP 18; TEMP 36.4; O2SAT 97; O2SAT 98
[2023-02-02] MEDS: FUROSEMIDE 20 MG TABLET PO (08:23)
[2023-02-02] MEDS: SODIUM CHLORIDE 1 GM TABLET PO ×2 (08:23→13:43)
[2023-02-02] MEDS: IPRAT-ALBUT 0.5-2.5 MG/3 ML NEB 1 NEB IH ×2 (08:23→13:43)
[2023-02-02] MEDS: APIXABAN 5 MG TABLET PO (08:23)
[2023-02-02] MEDS: carvediloL 6.25 MG TABLET PO (08:23)
[2023-02-02] MEDS: SODIUM CHLORIDE 0.9 % (FLUSH) 10 ML SYRINGE 5 ML IVF (08:24)
[2023-02-02 10:45] VITALS: BP 108/69; PULSE 51; RESP 20; TEMP 36.3; O2SAT 95
[2023-02-02] MEDS: dexAMETHasone 2 MG TABLET 6 MG PO (13:43)
--- NOTE | 2023-02-02 14:40 | P.DS_ITS ---
DS: Providers Provider Date Seen: 02/02/23 Date of admission: 01/30/23 14:03 Primary care physician: Isidro Siegel MD Admitting Clinician: Bertram Varghese MD Attending Physician on discharge: Bertram Varghese MD Date of Discharge: 02/02/23 DS: Diagnosis Discharge Diagnosis (1) COVID-19: Status: Acute Problem details: Sick for 2 days prior to admission. Has completed 3 days of remdesivir. (2) Chronic respiratory failure with hypoxia and hypercapnia: Status: Acute Problem details: Acute on chronic respiratory failure with COVID infection. Patient reports back to baseline respiratory failure today on discharge (3) Severe chronic obstructive pulmonary disease: Status: Acute Problem details: -as above Gold E. Severe COPD/emphysema. Bilateral scarring. Oxygen and prednisone dependent. Duonebs 4x/day; Breo Ellipta, proventil prn Followed by Dr. Shakeel Eaton, Pulmonary [facility] Last PFT was in February of 2018 --FEV1 predicted 32%, FEV1/FVC% 44.21 (4) Atrial fibrillation: Status: Acute Problem details: -currently in sinus, rate controlled. Troponin negative. -on coreg, eliquis. Due to bradycardia his digoxin was discontinued. Still mildly bradycardic. Consider reduced dose of Coreg 05/26 at [facility] Limited Echocardiogram performed 1. Normal LV size, normal global systolic function with an estimated EF of 65 - 70%. 2. Technically difficult exam. 3. Technically limited exam. Chamber Sizes and Function Normal left ventricular size, normal global systolic function with an estimated EF of 65 - 70%. (5) On prednisone therapy: Status: Acute Problem details: Chronic daily prednisone 10 mg daily. Previously has not tolerated attempts to taper. On dexamethasone in the hospital. At discharge will continue prednisone 20 mg daily for 3 days then back to 10 mg daily indefinitely (6) Oxygen dependent: Status: Acute Problem details: 3L at home; CO2 retention hx. Trilogy BiPAP at night continue same treatment at home (7) Debility: Status: Acute Problem details: Patient was quite weak on admission. In working with physical therapy he is determined he is back to baseline today (8) Bradycardia: Status: Acute Problem details: stop digoxin and monitor DS: Summary Hospital Course Hospital Course: 77-year-old male admitted the hospital with acute on chronic hypoxic respiratory failure. This was determined to be due to a COVID infection. Street in the hospital with Remdesivir and dexamethasone. During his hospital stay he had gradual improvement in his respiratory state distress and reports being back to baseline today. He has severe COPD and has very limited tolerance of activity due to dyspnea. He is also noted to have bradycardia in the hospital. Because of this his digoxin was discontinued. His bradycardia continued in the 50s. He continued on his normal dose of carvedilol. If he remains bradycardic after he recovers from COVID consider reducing his carvedilol dose as well. He is discharged to home for outpatient follow-up. Status at Discharge Functional status at discharge: uses cane/walker Overall status at discharge: patient is progressing back to baseline Time Spent with Patient Time attestation: Total time spent providing and/or coordinating discharge services:40 minutes Time spent: Greater than 30 minutes Exam Narrative: Exam Narrative: He has minimal pursed lip breathing today. Respiratory distress identified on admission with tachypnea and increased work of breathing has much improved. Breath sounds have also improved. Air exchange is better and expiratory wheezing is improved. Cardiovascular: S1, S2, regular bradycardia. Abdomen is soft without tenderness. Extremities without edema. Const: Vital Signs, click to edit/add: Vital Signs - 24 hr 02/01/23 15:40 02/01/23 15:40 02/01/23 18:24 Temperature 97.4 F L Pulse Rate 50 L Pulse Rate [Right Pulse Oximeter] 57 L Respiratory Rate 24 Blood Pressure [Le ft Arm] Blood Pressure [Ri ght Arm] 113/67 Pulse Oximetry 96 96 Oxygen Delivery Me thod Nasal Cannula Nasal Cannula Oxygen Flow Rate 3 3 02/01/23 19:15 02/01/23 23:00 02/01/23 23:00 Temperature 97.6 F Pulse Rate 72 Pulse Rate [Right Pulse Oximeter] 90 69 Respiratory Rate 18 18 Blood Pressure [Le ft Arm] Blood Pressure [Ri ght Arm] 103/59 L Pulse Oximetry 93 Oxygen Delivery Me thod Nasal Cannula Oxygen Flow Rate 3 02/01/23 23:00 02/01/23 23:00 02/02/23 03:00 Temperature 97.7 F 97.9 F Pulse Rate Pulse Rate [Right Pulse Oximeter] 69 59 L Respiratory Rate 18 18 20 Blood Pressure [Le ft Arm] 105/83 119/75 Blood Pressure [Ri ght Arm] Pulse Oximetry 95 95 93 Oxygen Delivery Me thod Nasal Cannula Nasal Cannula Nasal Cannula Oxygen Flow Rate 3 3 3 02/02/23 07:00 02/02/23 07:00 02/02/23 10:45 Temperature 97.5 F L 97.4 F L Pulse Rate Pulse Rate [Right Pulse Oximeter] 48 L 51 L Respiratory Rate 18 18 20 Blood Pressure [Le ft Arm] 124/80 108/69 Blood Pressure [Ri ght Arm] Pulse Oximetry 97 98 95 Oxygen Delivery Me thod Nasal Cannula Nasal Cannula Nasal Cannula Oxygen Flow Rate 3 3 3 Documenting provider has reviewed patient's vital signs: yes DS: Data Data Completed and Pending Completed studies during hospitalization: Procedures Assistance with Respiratory Ventilation, Less than 24 Consecutive Hours, Continuous Positive Airway Pressure (05/01/22) Introduction of Other Gas into Respiratory Tract, Via Natural or Artificial Opening (05/01/22) Labs on day of discharge: Labs from last 24 hours 02/02/23 06:06 VBG pH 7.407 VBG pCO2 59 H VBG pO2 24.5 L VBG HCO3 37 H Sodium 134 L Potassium 3.9 Chloride 95 L Carbon Dioxide 35 H Anion Gap 4 L BUN 23 Creatinine 0.6 Estimated Creat Clear 50.88 Estimated GFR 98 Glucose 105 Calcium 8.7 Discharge Plan Discharge Disposition: Home, Self-Care Date of Admission: 01/30/23 14:03 Attending Provider on Discharge: Bertram Varghese Primary Care Provider: Isidro Siegel Condition: Stable Anticipated Discharge Date/Time: 02/02/23 12:29 Discharge Medications: New acetaminophen-codeine 300-30 mg tablet 1 tab PO Q6H PRN (Reason: pain) Qty: 15 0RF sodium chloride 1,000 mg Tablet,Soluble 1,000 mg PO BIDWM Qty: 60 0RF Continued furosemide 20 mg tablet 20 mg PO DAILY Patient Comments: Take 1 Tablet (20 mg) by mouth 2 times daily. carvedilol 6.25 mg tablet 6.25 mg PO BID Patient Comments: Take 1 Tablet (6.25 mg) by mouth 2 times daily. Eliquis 5 mg tablet 5 mg PO BID Patient Comments: Take 1 Tablet (5 mg) by mouth 2 times daily. prednisone 10 mg tablet 10 mg PO DAILY Qty: 100 0RF Patient Comments: Take 1 Tablet (10 mg) by mouth once daily with a meal. Rx Instructions: Take 20 mg daily on Sunday and Sunday, February 03 through February 05 then return to 10 mg once a day ipratropium-albuterol 0.5 mg-3 mg(2.5 mg base)/3 mL solution for nebulization 3 ml INHALATION QID Discontinued digoxin 125 mcg (0.125 mg) tablet 125 mcg PO DAILY Patient Comments: Take 1 Tablet (125 mcg) by mouth once daily. Discharge Orders: Discharge Order (Routine); Ordered 02/02/23 Ordered By: Bertram Varghese Patient Education: Acetaminophen (By mouth), Sodium Chloride (By mouth), COVID- 19 and Chronic Health Conditions (ED) Discharge Diet: Regular Follow Up Appointments: Isidro Siegel MD [Primary Care Provider] - 02/09/23 11:20 am (Follow-up in 1 week) Forms: Personal Estate Manager Info Instructions
--- NOTE | 2023-02-02 20:35 | PC.NURSE ---
Nursing Care Hours: [id number] Pt this shift calm and cooperative with cares. Alert and oriented. SB with walker. VSS. Back to baseline of 3L NC. CHRISTIANO stockings on. Appetite decreased still. Discharge instructions went over with pt and adult son. All questions and concerns addressed. IV removed. Pt wheeled out to vehicle in stable condition.
== END 2023-02-02 15:15 | disposition home or self-care (01) | DRG 177 ==
LOC: ED 10:22 → MEDSURG 14:01
PROVIDERS: Admitting Provider Family Medicine; Emergency Provider Emergency Medicine Emergency Medical Services; PCP Family Medicine; Visit Provider Family Medicine
DX: U07.1 COVID-19 (principal); J96.21 Acute and chronic respiratory failure with hypoxia; J96.22 Acute and chronic respiratory failure with hypercapnia; J44.0 Chronic obstructive pulmonary disease with (acute) lower respiratory infection; J44.1 Chronic obstructive pulmonary disease with (acute) exacerbation; I48.91 Unspecified atrial fibrillation; Z79.01 Long term (current) use of anticoagulants; Z99.81 Dependence on supplemental oxygen; Z99.89 Dependence on other enabling machines and devices; Z79.52 Long term (current) use of systemic steroids; J43.9 Emphysema, unspecified; R00.1 Bradycardia, unspecified
CPT/HCPCS: 36415; 71045; 80048; 80162; 82803; 83605; 84484; 85025; 85379; 87493; 87631; 93005; 94640; 94664; 94761; 97161; 99284; 99285; A9270; J7050

== ENCOUNTER 2023-06-28 14:25 | Outpatient (CLI) | payer MEDICARE, SELFPAY ==
--- OUTSIDE RECORDS SUMMARY | 2023-07-03 14:18 | XMS_ITS | Clinical Summary ---
Author Organization [place] Address [address] [place] [address]. [place] [address] Care Team Providers Care Gaming Surveillance Observer Name Role Phone [facility] Primary Care Provider Allergies No known active allergies Social History Tobacco Use Types Packs/Day Years Used Date Smoking Tobacco: Never Assessed Sex and Gender Information Value Date Recorded Sex Assigned at Not on file Gender Identity Not on file Sexual Orientation Not on file Last Filed Vital Signs Vital Sign Reading Time Taken Comments Blood Pressure 102/70 12/16/2017 1:15 AM COOK APPRENTICE PASTRY Pulse 109 12/15/2017 9:49 PM COOK APPRENTICE PASTRY Temperature 37.2 ??C (99 ??F) 12/16/2017 1:24 AM COOK APPRENTICE PASTRY Respiratory Rate 22 12/15/2017 11:41 PM COOK APPRENTICE PASTRY Oxygen Saturation 93% 12/16/2017 1:15 AM COOK APPRENTICE PASTRY Inhaled Oxygen Concentration - - Weight - - Height - - Body Mass Index - - Plan of Treatment Not on file Care Teams Gaming Surveillance Observer Relationship Specialty Start Date End Date [facility], [facility] [address] [place] [address] PCP - General 12/15/17
--- OUTSIDE RECORDS SUMMARY | 2023-07-03 14:18 | XMS_ITS | Clinical Summary ---
Author Organization [facility] Address [place], [place] [address] Care Team Providers Care Dynamometer Repairer Name Role Phone Jamia Gutierrez AuD Unavailable [phone] Jourdan Osuna MD Unavailable Unavailab Antonio Garcia DC Unavailable Unavailable Curry Mendez MD Unavailable [phone] Jamia Gutierrez AuD Unavailable [phone] Katerine Gee Unavailable Isidro Siegel MD Primary [...] Each 11 11/08/2021 Active non-invasive ventilation therapy (NIV)Indications:SPECIAL INVESTIGATOR D with acute exacerbation (HC) Indication: COPD; [...] 11/30/2022 Active carvediloL (COREG) 6.25 mg tabletIndications:[facility], chronic (HC) Take 1 Tablet (6.25 mg) [...] 03/28/2023 Active apixaban (Eliquis) 5 mg tabletIndications:At [facility], chronic (HC) Take 1 Tablet (5 mg) [...] Encounters Date Type Department Care Team Description 06/29/2023 Telephone [facility] [address] [place] [address] Isidro Siegel MD Results 06/28/2023 9:30 AM CDT Orders Only [facility] [address] [place] [address] Lab 06/28/2023 Travel 06/26/2023 Orders Only [facility] [address] [place] [address] Nuno Oreilly MD <No scans attached> 06/26/2023 Telephone [facility] [id number] [place] [address] Nuno Oreilly MD Follow Up 06/26/[address] [address] Nuno Oreilly MD Refill Request (hydroCHLOROthiazide 25 mg tablet ) 06/13/2023 Telephone [facility] [address] [place] [address] Navin Vazquez MD Results 06/13/2023 Orders Only [address] [address] Nuno Oreilly MD <No scans attached> 06/12/2023 1:20 PM CDT Office Visit [address] [address] Nuno Oreilly MD Leg Swelling 06/12/2023 Travel 06/12/2023 Nurse Triage [facility] [address] [place] [address] Isidro Siegel MD Leg Swelling 05/03/2023 Refill [facility] [address] [place] [address] Isidro Siegel MD Refill Request (Eliquis) from Last 3 Months Immunizations Name Administration Dates Next Due COVID-19 Vaccine Spikevax (M oderna 50mcg/0.5mL) 12YO+ [id number] Formula PF 01/02/2023 COVID-19 vaccine (Sociocast-Bio NTech 30mcg/0.3mL) 12YO+ BIVALENT PF, MDV 01/11/2022 COVID-19 vaccine (Sociocast-Bio NTech 30mcg/0.3mL) PF, MDV 04/13/2020,03/23/2020 Influenza A [...] 166 cm (5' 5.35) 01/02/2023 8:31 AM ROTARY SHEAR OPERATOR Body Mass Index 22.88 01/02/2023 8:31 AM ROTARY SHEAR OPERATOR Plan of Treatment Upcoming Encounters Date Type Department Care Team (Late st Contact Info) Description 07/10/2023 8:00 AM CDT Ancillary [place] [address] [place] [address] 07/11/2023 11:00 AM CDT Office [place] [address] [place] [address] Rogers Adan MD [address] [facility] [address] [place] [address] Health Maintenance Due Date Last Done Comments [...] 10/01/2014, 07/06/2006 Medical Devices Implanted Type Area Business Planning Analyst Device Identifier Shelf Expiration Date Model / Serial / Lot Head Hip Od28mm +4 01/18 [employer] - [id number] Implanted:Qty: 1 on 05/14/2020 by Luigi Durand MD at [facility] Ortho Total Joint Right: Hip [employer] 10/28/2029 [id number] / / [id number] Implnt Porp 2mm Centered Titan [id number] - [id number] Implanted:Qty: 1 on 02/17/2013 by Curry Mendez MD at [facility] Right: Ear [facility] 11/04/2022 [id number] / / [id number] Liner Hip Id28 Od50 Tandem Cocr Uhmwpe [id number] - [id number] Implanted:Qty: 1 on 05/14/2020 by Luigi Durand MD at [facility] Right: Hip [employer] 03/22/2029 [id number] / / [id number] Standard Offset Anthology Porous Plus Rowe Femoral Component Implanted:Qty: 1 on 05/14/2020 by Luigi Durand MD at [facility] Right: Hip 10/20/2029 [id number] / / [id number] Description:SZE8 STANDARD OF FSET ANTHOLOGY POROUS PLUS ROWE FEMORAL COMPONENT Procedures Procedure Name Priority Date/Time Associated Diagnosis Comments BASIC METABOLIC PANEL Routine 06/28/2023 9:36 AM CDT Bilateral lower extremity edema CBC WITH AUTO DIFFERENTIAL Routine 06/12/2023 1:57 PM CDT Edema of left lower extremity CBC WITH AUTO DIFFERENTIAL Routine 06/12/2023 1:57 PM CDT Edema of left lower extremity COMP METABOLIC PANEL Routine 06/12/2023 1:57 PM CDT Edema of left lower extremity CT CHEST PE STUDY Routine 12/24/2017 11: 51 AM ROTARY SHEAR OPERATOR from Last 3 Months or Most Recently Relevant to Health Maintenance Results * (ABNORMAL) BASIC METABOLIC PANEL (06/28/2023 9:36 AM CDT) SODIUM 128(L) 136 - 145 mmol/L 06/28/2023 6:54 PM CDT [facility] POTASSIUM 3.4(L) 3.5 - 5.1 mmol/L 06/28/2023 6:54 PM CDT [facility] CHLORIDE 72(L) 98 - 107 mmol/L 06/28/2023 6:54 PM CDT [facility] CO2,TOTAL 40(H) 22 - 29 mmol/L 06/28/2023 6:54 PM CDT [facility] ANION GAP 16 5 - 18 06/28/2023 6:54 PM CDT [facility] GLUCOSE 158(H) 70 - 99 mg/dL 06/28/2023 6:54 PM CDT [facility] CALCIUM 10.7(H) 8.8 - 10.2 mg/dL 06/28/2023 6:54 PM CDT [facility] BUN 35(H) 8 - 23 mg/dL 06/28/2023 6:54 PM CDT [facility] CREATININE 1.06 0.70 - 1.20 mg/dL 06/28/2023 6:54 PM CDT [facility] BUN/CREAT RATIO 33(H) 10 - 20 6:54 PM CDT [facility] eGFR 71(L) >90 mL/min/1.7 3m2 06/28/2023 6:54 PM CDT [facility] Comment:As of 2021, eG FR is calculated by the CKD-EPI creatinine equation without race adjustment. ??eGFR can be influenced by muscle mass, exercise, and diet. ??The reported eGFR is an estimation only and is only applicable if the renal function is stable. Blood BLOOD SPECIMEN / Unknown Venipuncture / Unknown 06/28/2023 9:36 AM CDT 06/28/2023 9:36 AM CDT Nuno Oreilly MD CHEMISTRY [facility] [address] [place] [address], * (ABNORMAL) CBC WITH AUTO DIFFERENTIAL (06/12/2023 1:57 PM CDT) WHITE BLOOD COUNT 9.2 4.5 - 11.0 thou/cu mm 06/12/2023 2:08 PM CDT [facility] RED BLOOD COUNT 4.38 4.30 - 5.90 mil/cu mm 06/12/2023 2:08 PM CDT [facility] HEMOGLOBIN 13.6 13.5 - 17.5 g/dL 06/12/2023 2:08 PM CDT [facility] HEMATOCRIT 41.0 37.0 - 53.0 % 06/12/2023 2:08 PM CDT [facility] MCV 94 80 - 100 fL 06/12/2023 2:08 PM CDT [facility] MCH 31.1 26.0 - 34.0 pg 06/12/2023 2:08 PM CDT [facility] MCHC 33.2 32.0 - 36.0 g/dL 06/12/2023 2:08 PM CDT [facility] RDW 12.9 11.5 - 15.5 % 06/12/2023 2:08 PM CDT [facility] PLATELET COUNT 341 140 - 440 thou/cu mm 06/12/2023 2:08 PM CDT [facility] MPV 9.3 6.5 - 11.0 fL 06/12/2023 2:08 PM CDT [facility] % NEUT 79.1 % 06/12/2023 2:08 PM CDT [facility] % LYMPH 15.2 % 06/12/2023 2:08 PM CDT [facility] % MONO 4.8 % 06/12/2023 2:08 PM CDT [facility] % EOS 0.7 % 06/12/2023 2:08 PM CDT [facility] % BASO 0.2 % 06/12/2023 2:08 PM CDT [facility] ABSOLUTE NEUTROPHILS 7.3(H) 1.7 - 7.0 thou/cu mm 06/12/2023 2:08 PM CDT [facility] ABSOLUTE LYMPHOCYTES 1.4 0.9 - 2.9 thou/cu mm 06/12/2023 2:08 PM CDT [facility] ABSOLUTE MONOCYTES 0.4 <0.9 thou/cu mm 06/12/2023 2:08 PM CDT [facility] ABSOLUTE EOSINOPHILS 0.1 <0.5 thou/cu mm 06/12/2023 2:08 PM CDT [facility] ABSOLUTE BASOPHILS 0.0 <0.3 thou/cu mm 06/12/2023 2:08 PM CDT [facility] Blood BLOOD SPECIMEN / Unknown Venipuncture / Unknown 06/12/2023 1:57 PM CDT 06/12/2023 2:00 PM CDT Nuno Oreilly MD HEMATOLOGY [facility] [address] [place] [address] * (ABNORMAL) COMP METABOLIC PANEL (06/12/2023 1:57 PM CDT) SODIUM 127(L) 136 - 145 mmol/L 06/13/2023 1:27 AM [facility] POTASSIUM 4.2 3.5 - 5.1 mmol/L 06/13/2023 1:27 AM [facility] CHLORIDE 81(L) 98 - 107 mmol/L 06/13/2023 1:27 AM [facility] CO2,TOTAL 36(H) 22 - 29 mmol/L 06/13/2023 1:27 AM [facility] ANION GAP 10 5 - 18 06/13/2023 1:27 AM [facility] GLUCOSE 128(H) 70 - 99 mg/dL 06/13/2023 1:27 AM [facility] CALCIUM 10.1 8.8 - 10.2 mg/dL 06/13/2023 1:27 AM [facility] BUN 12 8 - 23 mg/dL 06/13/2023 1:27 AM [facility] CREATININE 0.75 0.70 - 1.20 mg/dL 06/13/2023 1:27 AM [facility] BUN/CREAT RATIO 16 10 - 20 1:27 AM [facility] eGFR >90 >90 mL/min/1.7 3m2 06/13/2023 1:27 AM [facility] Comment:As of 2021, eG FR is calculated by the CKD-EPI creatinine equation without race adjustment. ??eGFR can be influenced by muscle mass, exercise, and diet. ??The reported eGFR is an estimation only and is only applicable if the renal function is stable. ALBUMIN 4.3 4.0 - 4.9 g/dL 06/13/2023 1:27 AM [facility] PROTEIN,TOTAL 6.9 6.0 - 8.0 g/dL 06/13/2023 1:27 AM CDT [facility] BILIRUBIN,TOTAL 0.4 0.0 - 1.2 mg/dL 06/13/2023 1:27 AM CDT [facility] ALK PHOSPHATASE 106 40 - 129 IU/L 06/13/2023 1:27 AM CDT [facility] ALT (SGPT) 14 10 - 50 IU/L 06/13/2023 1:27 AM CDT [facility] AST (SGOT) 26 10 - 50 IU/L 06/13/2023 1:27 AM CDT [facility] Blood BLOOD SPECIMEN / Unknown Venipuncture / Unknown 06/12/2023 1:57 PM CDT 06/12/2023 2:00 PM CDT Nuno Oreilly MD CHEMISTRY Performing Organization Address City/State/[facility] Co de Phone Number [facility] [address] [place] [id number], * CT CHEST PE STUDY (12/24/2017 11:51 AM ROTARY SHEAR OPERATOR) Anatomical Region Laterality Modality CHEST, THORAX, HEART Computed To mography 12/24/2017 12:1 9 PM ROTARY SHEAR OPERATOR Narrative 12/24/2017 12:19 PM ROTARY SHEAR OPERATOR HISTORY: Cough and shortness of breath. TECHNIQUE: [...] Documents on File Type Date Recorded Patient Sharepoint Developer Christiano TRUJILLO 01/15/2018 3:09 PM 12.6.18 * DNR (Latest [...] 6:56 AM 02/17/2013 6:58 PM Care Teams Dynamometer Repairer Relationship Specialty Start Date End Date Isidro Siegel MD [address] [place] [address] PCP - General Family Practice 05/17/20 Jamia Gutierrez AuD Audiology 04/04/07 Jourdan Osuna MD Family Practice 06/05/12 Antonio Doe DC Chiropractor 06/05/12 Curry Mendez MD Surgery - Otolaryngology 07/17/13 Jamia Gutierrez AuD Audiology 07/17/13 Katerine Gee, [address] [address] HOME (DME) Respiratory Therapy Respiratory Therapist 07/16/18
--- OUTSIDE RECORDS SUMMARY | 2023-07-03 14:18 | XMS_ITS | Referral Summary ---
Author Organization [place] Address [address] [place] [address]. [place] [address] Care Team Providers Care Reed Repairer Name Role Phone [facility] Primary Care Provider Allergies No known active allergies Social History Tobacco Use Types Packs/Day Years Used Date Smoking Tobacco: Never Assessed Sex and Gender Information Value Date Recorded Sex Assigned at Not on file Gender Identity Not on file Sexual Orientation Not on file Last Filed Vital Signs Vital Sign Reading Time Taken Comments Blood Pressure 102/70 12/16/2017 1:15 AM MICA BUILDER Pulse 109 12/15/2017 9:49 PM MICA BUILDER Temperature 37.2 ??C (99 ??F) 12/16/2017 1:24 AM MICA BUILDER Respiratory Rate 22 12/15/2017 11:41 PM MICA BUILDER Oxygen Saturation 93% 12/16/2017 1:15 AM MICA BUILDER Inhaled Oxygen Concentration - - Weight - - Height - - Body Mass Index - - Plan of Treatment Not on file Care Teams Reed Repairer Relationship Specialty Start Date End Date [facility], [facility] [address] [place] [address] PCP - General 12/15/17
== END 2023-06-28 14:26 | disposition home or self-care (01) ==
LOC: AMB 07-03 14:13
PROVIDERS: PCP Family Medicine; Visit Provider Family Medicine
DX: R62.7 Adult failure to thrive (principal)
CPT/HCPCS: A0425; A0427

== ENCOUNTER 2023-06-28 15:06 | Inpatient (IN) | payer MEDICARE, SELFPAY ==
[2023-06-28] VITALS (24 sets, daily range): BP systolic 98–120; BP diastolic 65–81; PULSE 48–109; RESP 18–20; TEMP 36.4–37.1; O2SAT 90–97; BMI 20.2
--- NOTE | 2023-06-28 15:19 | CRLHL7_ITS ---
For Patients: As a result of the Century Cures Act, medical imaging exams and procedure reports are released immediately into your electronic medical record. You may view this report before your referring provider. If you have questions, please contact your health care provider. Indication: COPD Technique: PA/lateral chest Comparison: Frontal chest January 30, 2023 Findings: The lungs are hyperinflated. Irregular opacities within the left lingula are more prominent on today`s study. Calcified pleural plaques are again noted. Stable blunting of the left costophrenic angle, scarring versus tiny pleural effusion. Trachea is midline. Cardiac silhouette is stable. Age-indeterminate compression fractures are present within the mid to lower thoracic spine. Impression: 1. More prominent irregular opacities overlying the left mid lung, pleural disease versus developing mass versus overlapping shadows. Recommend routine chest CT to adequately characterize. 2. Several age indeterminate thoracic vertebral body fractures. If there is concern for pathologic fractures, recommend thoracic spine MR. 3. No acute cardiopulmonary findings. Dictated by Rodriguez Collazo MD @ 06/28/2023 4:44:29 PM (Electronically Signed)
[2023-06-28 15:42] LABS: Troponin, Point-of-Care* 0.02 ng/ml (0.01-0.04)
--- OUTSIDE RECORDS SUMMARY | 2023-06-28 15:47 | XMS_ITS | Clinical Summary ---
Author Organization [facility] Address [address] [place] [address]. [place] [address] Care Team Providers Care Waste Reduction Coordinator Name Role Phone [facility] Primary Care Provider Allergies No known active allergies Social History Tobacco Use Types Packs/Day Years Used Date Smoking Tobacco: Never Assessed Sex and Gender Information Value Date Recorded Sex Assigned at Not on file Gender Identity Not on file Sexual Orientation Not on file Last Filed Vital Signs Vital Sign Reading Time Taken Comments Blood Pressure 102/70 12/16/2017 1:15 AM [employer] Pulse 109 12/15/2017 9:49 PM [employer] Temperature 37.2 ??C (99 ??F) 12/16/2017 1:24 AM [employer] Respiratory Rate 22 12/15/2017 11:41 PM [employer] Oxygen Saturation 93% 12/16/2017 1:15 AM [employer] Inhaled Oxygen Concentration - - Weight - - Height - - Body Mass Index - - Plan of Treatment Not on file Care Teams Waste Reduction Coordinator Relationship Specialty Start Date End Date [facility], [facility] [address] [place] [address] PCP - General 12/15/17
--- OUTSIDE RECORDS SUMMARY | 2023-06-28 15:47 | XMS_ITS | Referral Summary ---
Author Organization [facility] Address [address] [place] [address]. [place] [address] Care Team Providers Care Metal Bumper Name Role Phone [facility] Primary Care Provider Allergies No known active allergies Social History Tobacco Use Types Packs/Day Years Used Date Smoking Tobacco: Never Assessed Sex and Gender Information Value Date Recorded Sex Assigned at Not on file Gender Identity Not on file Sexual Orientation Not on file Last Filed Vital Signs Vital Sign Reading Time Taken Comments Blood Pressure 102/70 12/16/2017 1:15 AM PIE CUTTER Pulse 109 12/15/2017 9:49 PM PIE CUTTER Temperature 37.2 ??C (99 ??F) 12/16/2017 1:24 AM PIE CUTTER Respiratory Rate 22 12/15/2017 11:41 PM PIE CUTTER Oxygen Saturation 93% 12/16/2017 1:15 AM PIE CUTTER Inhaled Oxygen Concentration - - Weight - - Height - - Body Mass Index - - Plan of Treatment Not on file Care Teams Metal Bumper Relationship Specialty Start Date End Date [facility], [facility] [address] [place] [address] PCP - General 12/15/17
--- OUTSIDE RECORDS SUMMARY | 2023-06-28 15:48 | XMS_ITS | Clinical Summary ---
Author Organization [facility] Address [place], [place] [address] Care Team Providers Care Options Trader Name Role Phone Jamia Gutierrez AuD Unavailable [phone] Jourdan Osuna MD Unavailable Unavailab Antonio Garcia DC Unavailable Unavailable Curry Mendez MD Unavailable [phone] Jamia Gutierrez AuD Unavailable [phone] Katerine Gee Unavailable Isidro Siegel MD Primary Care Provider Allergies No known active allergies Medications Medication Sig Dispensed Refills Start Date End Date Status WalkerIndications:CO PD with acute exacerbation (HC) Walker with front wheels for home use. 1 Device 12/26/2017 Active oxygen-air delivery systems (HOME OXYGEN)Indications:C OPD mixed type (HC) Oxygen home use2-4 liters per nasal cannula Continuous Length of need:99 Months-conserving device portable simplygomini 1 Device 03/20/2018 Active Graduated Compression StockingsIndications :Peripheral edema For personal use. Length: calf Strength: 20-30 mmHg Circumference in cm: to be measured by vendor 1 Packet 06/17/2021 Active triamcinolone (ARISTOCORT; KENALOG) 0.1 % creamIndications:Renato h Apply topically to affected area(s) 3 times daily. 80 g 3 06/17/2021 Active Additional Information Patient taking differently:TopicalCONTINUOUS PRN, Reported on 09/19/2022 albuterol HFA (PRO-AIR; VENTOLIN; PROVENTIL) 90 mcg/actuation inhalerIndications:C OPD mixed type (HC) Inhale 1-2 Puffs by mouth every 4 hours if needed for Shortness of Breath 1st choice. Please fill when patient calls 1 Each 11 11/08/2021 Active non-invasive ventilation therapy (NIV)Indications:DISPATCHER CLERK D with acute exacerbation (HC) Indication: COPD; Respiratory Rate: auto; Tidal Volume (mL per ideal body weight): 200-700 mls; Max Pressure 25-35 cm H2O; Pressure Support Max 12-20 cm H2O); Pressure Support Min 6 cm H2O; EPAP Max Pressure 8-12 cm H2O; EPAP Min Pressure: 4 cm H2O; AVAPS Rate (cm H2O): 1-5; Bleed in O2 at (LPM): 4 L; Length of Need: lifetime. *If patient unable to tolerate ordered Tidal Volume, Respiratory Therapist may adjust by up to 2 mL/kg ideal body weight and contact ordering Provider to change prescription if clinically appropriate.* 1 Each 03/22/2022 Active albuterol (PROVENTIL) 0.083 % neb solutionIndications: COPD mixed type (HC) Inhale 3 mL (2.5 mg) via a nebulizer every 4 hours if needed for Shortness Of Breath. 90 mL 3 04/28/2022 Active ipratropium (ATROVENT) 0.02 % nebulizer solutionIndications: COPD mixed type (HC) Inhale 2.5 mL (0.5 mg) via a nebulizer 4 times daily. 75 mL 3 04/28/2022 Active furosemide (LASIX) 20 mg tabletIndications:Pr imary cardiomyopathy (HC) Take 1 Tablet (20 mg) by mouth two times daily. 180 Tablet 2 11/25/2022 Active Additional Information Patient taking differently:20 mg OralDAILY, Reported on 06/12/2023 albuterol-ipratropiu m (DUONEB) (2.5-0.5 mg) in 3 mL NEBULIZATION solutionIndications: COPD mixed type (HC) Inhale 3 mL via a nebulizer 4 times daily. 1480 mL 2 11/30/2022 Active predniSONE (DELTASONE) 10 mg tabletIndications:Ch ronic obstructive pulmonary disease, unspecified COPD type (HC) Take 1 Tablet (10 mg) by mouth once daily with a meal. 30 Tablet 11 11/30/2022 Active carvediloL (COREG) 6.25 mg tabletIndications:At [facility], chronic (HC) Take 1 Tablet (6.25 mg) by mouth two times daily. 180 Tablet 3 01/02/2023 Active sodium chloride 1,000 mg soluble tabletIndications:Hy ponatremia Take 1 Tablet (1,000 mg) by mouth once daily. 30 Tablet 6 02/15/2023 Active honey 100 % psteIndications:Pres sure injury of left foot, stage 3 (HC) Apply daily to open areas. 44 mL 03/28/2023 Active Alginate Dressing 2 X 2 bndgIndications:Pres sure injury of left foot, stage 3 (HC) Apply topically to affected area(s). 60 Each 03/28/2023 Active apixaban (Eliquis) 5 mg tabletIndications:At [facility], chronic (HC) Take 1 Tablet (5 mg) by mouth two times daily. 180 Tablet 3 05/04/2023 Active furosemide (LASIX) 40 mg tabletIndications:Ed jimy of left lower extremity Take 1 Tablet (40 mg) by mouth 2 times daily if needed (edema). 30 Tablet 2 06/12/2023 Active hydroCHLOROthiazide 25 mg tabletIndications:Pe ripheral edema Twice a day as needed for swelling 180 Tablet 3 06/13/2023 Active Active Problems Problem Noted Date Diagnosed Date Chronic systolic CHF (congestive heart failure) 06/12/2023 Bilateral lower extremity edema 03/28/2023 Pressure injury of left foot, stage 3 03/28/2023 Hyperlipidemia 01/02/2023 S/p Hemiarthroplasty right hip 05/14/20 Dr. Jose Durand 06/18/2020 Chronic respiratory failure with hypoxia and hypercapnia due to COPD. Home oxygen and Trilegy BIPAP 05/17/2020 Atrial flutter with rapid ventricular response 0 05/11/2020 Chronic atrial fibrillation 05/11/2020 Subcapital fracture of right femur; ORIF 1 05/11/2020 Carbon dioxide retention 05/11/2020 Hyponatremia 05/11/2020 Encounter for palliative care 12/19/2017 ACP (advance care planning) 12/19/2017 Overview: Patient has identified Health Care Agent(s): No Add Health Care Agents: No Patient has Advance Care Plan Documents (Health Care Directive, POLST): No, referral made to Palliative Care. Patient has identified Specific Treatment Preferences: Yes How have preferences been verified: verbal Specific Treatment Preferences: a.) Code Status: DNR/ Do Not Attempt Resuscitation - Allow a Natural Tobacco use disorder 11/03/2013 Mixed hearing loss, bilateral 03/12/2007 Resolved Problems Problem Noted Date Diagnosed Date Resolved Date Elevated troponin level 05/11/202005/07 Fracture of hip 05/11/2020 05/26/2020 Chronic HFrEF (heart failure with reduced ejection fraction) 05/11/2020 05/26/2020 Hyponatremia 05/11/2020 05/26/2020 Leukocytosis 05/11/2020 05/26/2020 Neck pain 05/11/2020 05/26/2020 Sciatica of left side 05/11/20202020 Tachycardia-induced cardiomyopathy 05/11/2020 02/15/2023 Chronic obstructive pulmonar y disease with acute exacerbation 05/11/2020 05/26/2020 Edema of foot 05/11/2020 05/26/2020 COPD (chronic obstructive pulmonary disease) 05/26/2020 COPD with acute exacerbation 12/16/2017 05/26/2020 Mixed hearing loss, unilateral 03/12/2007 05/26/2020 Chronic airway obstruction, not elsewhere classified 07/19/2006 05/26/2020 Acute sinusitis, unspecified 06/12/2006 05/26/2020 Unspecified hemorrhoids with out mention of complication 06/12/2006 05/26/2020 Encounters Date Type Department Care Team Description 06/28/2023 9:30 AM CDT Orders Only [facility] [id number] [place] [id number] Lab 06/28/2023 Travel 06/26/2023 Orders Only [address] [address] Nuno Oreilly MD <No scans attached> 06/26/[address] [address] Nuno Oreilly MD Follow Up 06/26/2023 Telephone [facility] [id number] [place] [address] Nuno Oreilly MD Refill Request (hydroCHLOROthiazide 25 mg tablet ) 06/13/2023 Telephone [facility] [address] [place] [address] Navin Vazquez MD Results 06/13/2023 Orders Only [address] [address] Nuno Oreilly MD <No scans attached> 06/12/2023 1:20 PM CDT Office Visit [address] [address] Nuno Oreilly MD Leg Swelling 06/12/2023 Travel 06/12/2023 Nurse Triage [facility] [address] [place] [address] Isidro Siegel MD Leg Swelling 05/03/2023 Refill [facility] [address] [place] [address] Isidro Siegel MD Refill Request (Eliquis) 03/30/2023 Telephone [facility] [address] [place] [address] Isidro Siegel MD Medication Management from Last 3 Months Immunizations Name Administration Dates Next Due COVID-19 Vaccine Spikevax (M oderna 50mcg/0.5mL) 12YO+ [id number] Formula PF 01/02/2023 COVID-19 vaccine ([employer] NTech 30mcg/0.3mL) 12YO+ BIVALENT PF, MDV 01/11/2022 COVID-19 vaccine ([employer] 30mcg/0.3mL) PF, MDV 04/13/2020,03/23/2020 Influenza A (H1N1), Inactivated 01/26/2009 Influenza A (H1N1), Inactiva eleonora (Age >=3 Years) 01/26/2009 Influenza, High-dose Inactivated 018,10/20/2016,10/29/2015,2014,10/18/2012 Influenza, High-dose Quadriv alent Inactivated 01/02/2022,11/22/2020 Influenza, IIV3 (Age >=3 years) 10/22/19 10,10/22/2008,2004,2002 Influenza, Inactivated AIIV4 (Age 65+ Years) Preserv Free 01/02/2023,11/05/2019 Influenza, Inactivated IIV3 (Age 65+ Years) Preserv Free 10/26/2018 Pneumococcal Conj 20-valent (Prevnar 20) 01/02/2023 Pneumococcal Poly,23-Valent (Pneumovax) 07/06/2006 Pneumococcal conj 13-Valent (Prevnar 13) 10/01/2014 Td, Preservative Free (age > = 7 Years) 07/06/2006 Tdap 11/05/2017,11/02/2017 Zoster (Shingrix-RZV, recombinant) 05/31/2018, Zoster (Zostavax-ZVL, live) 08/17/2010 Family History Medical History Relation Name Comments Good Health Father Other Mother oral cancer Relation Name Status Comments Father Alive Mother Social History Tobacco Use Types Packs/Day Years Used Date Smoking Tobacco: Former Cigarettes 0.8 30 1 02/14/1987 - 12/15/2017 Passive Smoke Exposure: Never Smokeless Tobacco: Never Tobacco Cessation:Counseling Given: No Comments:Quit Smoking May 2021, no more then 2 cigs per day 02/19/18 Alcohol Use Standard Drinks/Week Comments No 0 (1 standard drink = 0.6 oz pur e alcohol) rarely PHQ-2 Answer Date Recorded PHQ-2 TOTAL SCORE 0 01/02/2023 Social Connections Answer Date Recorded Frequency of Communication with Friends and Fami ly 0 01/02/2023 Financial Resource Strain Answer Date R ecorded Difficulty of Paying Living Expenses 3 01/02/2023 Difficulty of Paying Living Expenses Not on file 01/02/2023 Food Insecurity Answer Date Recorded Worried About Running Out of Food in the Last Ye ar 1 01/02/2023 Transportation Needs Answer Date Record ed Lack of Transportation (Medical) 1 01/02/2023 Housing Stability Answer Date Recorded Unable to Pay for Housing in the Last Year 1 01/02/2023 Sex and Gender Information Value Date Recorded Sex Assigned at Not on file Gender Identity Not on file Sexual Orientation Not on file Obstetrics History Last Filed Vital Signs Vital Sign Reading Time Taken Comments Blood Pressure 102/72 06/12/2023 1:28 PM CDT Pulse 82 06/12/2023 1:28 PM CDT Temperature 36.8 ??C (98.3 ??F) 09/19/2022 2:40 PM CD T Respiratory Rate 22 11/30/2022 11:11 AM CDT Oxygen Saturation 90% 06/12/2023 1:28 PM CDT Inhaled Oxygen Concentration - - Weight 63 kg (139 lb) 06/12/2023 1:28 PM CDT Height 166 cm (5' 5.35) 01/02/2023 8:31 AM CATAPULT AND ARRESTING GEAR OFFICER Body Mass Index 22.88 01/02/2023 8:31 AM CATAPULT AND ARRESTING GEAR OFFICER Plan of Treatment Upcoming Encounters Date Type Department Care Team (Late st Contact Info) Description 07/10/2023 8:00 AM CDT Ancillary Procedure [facility] [address] [place] [address] 07/11/2023 11:00 AM CDT Office Visit [facility] [address] [place] [address] Rogers Adan MD [address] [facility] [address] [place] [address] Health Maintenance Due Date Last Done Comments Low Dose CT (for lung CA) ag e 50-80 12/24/2018 12/24/2017, 06/25/2007, 08/22/2006, Additional history exists Influenza for age 65+ 10/07/2023 01/02/2023 , 01/02/2022, 11/22/2020, Additional history exists BMI (ht and wt on same day) for age 18+ 01/03/2024 01/02/2023, 11/30/2022, 09/19/2022, Additional history exists Depression screening for age 12+ 01/03/2024 01/02/2023, 04/26/2021, 04/19/2021, Additional history exists Medicare Wellness for age 65+ 01/03/2024, 04/26/2021, 11/05/2019, Additional history exists Tetanus booster 11/06/2027 11/05/2017, 10/07, 07/06/2006 Tdap Completed 11/05/2017, 11/02/2017 Zoster (shingles) series for age 50+ Completed 05/31/2018, 03/22/2018, 08/17/2010 COVID-19 vaccine series Completed 01/03/20, 01/11/2022, 05/10/2021, Additional history exists Pneumococcal series for age 65+ Completed 01/02/2023, 10/01/2014, 07/06/2006 Medical Devices Implanted Type Area Cup Machine Operator Device Identifier Shelf Expiration Date Model / Serial / Lot Head Hip Od28mm +4 01/18 [email or web address] - [id number] Implanted:Qty: 1 on 05/14/2020 by Luigi Durand MD at [facility] Ortho Total Joint Right: Hip [employer] 10/28/2029 [id number] / / [id number] Implnt Porp 2mm Centered Titan [id number] - [id number] Implanted:Qty: 1 on 02/17/2013 by Curry Mendez MD at [facility] Right: Ear [employer] 11/04/2022 [id number] / / [id number] Liner Hip Id28 Od50 Tandem Cocr Uhmwpe [id number] - [id number] Implanted:Qty: 1 on 05/14/2020 by Luigi Durand MD at [facility] Right: Hip [employer] 03/22/2029 [id number] / / [id number] Standard Offset Anthology Porous Plus Beltran Femoral Component Implanted:Qty: 1 on 05/14/2020 by Luigi Durand MD at [facility] Right: Hip 10/20/2029 [id number] / / [id number] Description:SZE8 STANDARD OF FSET ANTHOLOGY POROUS PLUS BELTRAN FEMORAL COMPONENT Procedures Procedure Name Priority Date/Time Associated Diagnosis Comments CBC WITH AUTO DIFFERENTIAL Routine 06/12/2023 1:57 PM CDT Edema of left lower extremity CBC WITH AUTO DIFFERENTIAL Routine 06/12/2023 1:57 PM CDT Edema of left lower extremity COMP METABOLIC PANEL Routine 06/12/2023 1:57 PM CDT Edema of left lower extremity CT CHEST PE STUDY Routine 12/24/2017 11: 51 AM CATAPULT AND ARRESTING GEAR OFFICER from Last 3 Months or Most Recently Relevant to Health Maintenance Results * (ABNORMAL) CBC WITH AUTO DIFFERENTIAL (06/12/2023 1:57 PM CDT) WHITE BLOOD COUNT 9.2 4.5 - 11.0 thou/cu mm 06/12/2023 2:08 PM CDT [facility] RED BLOOD COUNT 4.38 4.30 - 5.90 mil/cu mm 06/12/2023 2:08 PM CDT [facility] HEMOGLOBIN 13.6 13.5 - 17.5 g/dL 06/12/2023 2:08 PM CDT [facility] HEMATOCRIT 41.0 37.0 - 53.0 % 06/12/2023 2:08 PM CDT [facility] MCV 94 80 - 100 fL 06/12/2023 2:08 PM CDT [facility] MCH 31.1 26.0 - 34.0 pg 06/12/2023 2:08 PM CDT [facility] MCHC 33.2 32.0 - 36.0 g/dL 06/12/2023 2:08 PM CDT [facility] RDW 12.9 11.5 - 15.5 % 06/12/2023 2:08 PM CDT [facility] PLATELET COUNT 341 140 - 440 thou/cu mm 06/12/2023 2:08 PM CDT [facility] MPV 9.3 6.5 - 11.0 fL 06/12/2023 2:08 PM CDT [facility] % NEUT 79.1 % 06/12/2023 2:08 PM CDT [facility] % LYMPH 15.2 % 06/12/2023 2:08 PM CDT [facility] % MONO 4.8 % 06/12/2023 2:08 PM CDT [facility] % EOS 0.7 % 06/12/2023 2:08 PM CDT [facility] % BASO 0.2 % 06/12/2023 2:08 PM CDT [facility] ABSOLUTE NEUTROPHILS 7.3(H) 1.7 - 7.0 thou/cu mm 06/12/2023 2:08 PM CDT [facility] ABSOLUTE LYMPHOCYTES 1.4 0.9 - 2.9 thou/cu mm 06/12/2023 2:08 PM CDT [facility] ABSOLUTE MONOCYTES 0.4 <0.9 thou/cu mm 06/12/2023 2:08 PM CDT [facility] ABSOLUTE EOSINOPHILS 0.1 <0.5 thou/cu mm 06/12/2023 2:08 PM CDT [facility] ABSOLUTE BASOPHILS 0.0 <0.3 thou/cu mm 06/12/2023 2:08 PM CDT [facility] Blood BLOOD SPECIMEN / Unknown Venipuncture / Unknown 06/12/2023 1:57 PM CDT 06/12/2023 2:00 PM CDT Nuno Oreilly MD HEMATOLOGY [facility] [address] [place], [place] [id number] * (ABNORMAL) COMP METABOLIC PANEL (06/12/2023 1:57 PM CDT) SODIUM 127(L) 136 - 145 mmol/L 06/13/2023 1:[address] [facility] POTASSIUM 4.2 3.5 - 5.1 mmol/L 06/13/2023 1:27 AM [facility] CHLORIDE 81(L) 98 - 107 mmol/L 06/13/2023 1:27 AM [facility] TRAL LABOR[facility]ORY CO2,TOTAL 36(H) 22 - 29 mmol/L 06/13/2023 1:27 AM [facility] TRAL LABOR[facility]ORY ANION GAP 10 5 - 18 06/13/2023 1:27 AM [facility] TRAL LAB[facility]ORY GLUCOSE 128(H) 70 - 99 mg/dL 06/13/2023 1:27 AM [facility] TRAL LABORATORY CALCIUM 10.1 8.8 - 10.2 mg/dL 06/13/2023 1:27 AM [facility] BUN 12 8 - 23 mg/dL 06/13/2023 1:27 AM [facility] CREATININE 0.75 0.70 - 1.20 mg/dL 06/13/2023 1:27 AM [facility] TRA LABORATORY BUN/CREAT RATIO 16 10 - 20 1:27 AM [facility] eGFR >90 >90 mL/min/1.7 3m2 06/13/2023 1:27 AM [facility] Comment:As of 2021, eG FR is calculated by the CKD-EPI creatinine equation without race adjustment. ??eGFR can be influenced by muscle mass, exercise, and diet. ??The reported eGFR is an estimation only and is only applicable if the renal function is stable. ALBUMIN 4.3 4.0 - 4.9 g/dL 06/13/2023 1:27 AM [facility] TRAL LABORATORY PROTEIN,TOTAL 6.9 6.0 - 8.0 g/dL 06/13/2023 1:27 AM [facility] TRAL LABORATORY BILIRUBIN,TOTAL 0.4 0.0 - 1.2 mg/dL 06/13/2023 1:27 AM [facility] TRAL LABORATORY ALK PHOSPHATASE 106 40 - 129 IU/L 06/13/2023 1:27 AM [facility] TRAL LABORATORY ALT (SGPT) 14 10 - 50 IU/L 06/13/2023 1:[address] [facility] TRAL LABORATORY AST (SGOT) 26 10 - 50 IU/L 06/13/2023 1:27 AM CDT [facility] TRAL LABORATORY Blood BLOOD SPECIMEN / Unknown Venipuncture / Unknown 06/12/2023 1:57 PM CDT 06/12/2023 2:00 PM CDT Nuno Oreilly MD [facility] [address] [place] [address], * CT CHEST PE STUDY (12/24/2017 11:51 AM CATAPULT AND ARRESTING GEAR OFFICER) Anatomical Region Laterality Modality CHEST, THORAX, HEART Computed To mography 12/24/2017 12:1 9 PM CATAPULT AND ARRESTING GEAR OFFICER Narrative 12/24/2017 12:19 PM CATAPULT AND ARRESTING GEAR OFFICER HISTORY: Cough and shortness of breath. TECHNIQUE: Contrast enhanced CT pulmonary angiogram protocol with coronal and sagittal reformations. COMPARISON: CT chest 06/25/2007. FINDINGS: There are no filling defects in the pulmonary arteries. The aorta has scattered calcification. It is normal in caliber and there is no sign of dissection. The heart size is normal. There is no pericardial or pleural effusion. A mild pectus excavatum is present. Diffuse centrilobular emphysematous changes are present bilaterally. Bilateral apical fibrosis is present left greater than right. Fibrosis or chronic atelectasis is present posteriorly in each lung base. Dense diaphragmatic calcifications are present bilaterally. Other scattered small areas of calcified plaque are present bilaterally. There is a 1.4 x 1.6 cm density seen posteriorly that appears to be loculated fluid within the major fissure. Fibrosis in the anterolateral right middle lobe is stable since 06/25/2007. No suspicious lung mass is seen. The bony structures are unremarkable. IMPRESSION: 1. No evidence of pulmonary embolism. 2. Evidence of asbestosis with calcified pleural plaques bilaterally most dense along the hemidiaphragms. 3. Posterior bibasilar fibrosis or chronic atelectasis. 4. Diffuse emphysematous changes. Please note that all CT scans at this facility use dose modulation, iterative reconstruction, and/or weight-based dosing when appropriate to reduce radiation dose to as low as reasonably achievable. Dictated by Amarjit Andrade MD @ Dec 24 2017 12:19PM (Electronically Signed) Procedure Note Amarjit Andrade MD - 12/24/2017 HISTORY: Cough and shortness of breath. TECHNIQUE: Contrast enhanced CT pulmonary angiogram protocol with coronal andsagittal reformations. COMPARISON: CT chest 06/25/2007. FINDINGS: There are no filling defects in the pulmonary arteries. The aorta has scattered calcification. It is normal in caliber and thereis no sign of dissection. The heart size is normal. There is no pericardial or pleural effusion. Amild pectus excavatum is present. Diffuse centrilobular emphysematous changes are present bilaterally.Bilateral apical fibrosis is present left greater than right. Fibrosis orchronic atelectasis is present posteriorly in each lung base. Densediaphragmatic calcifications are present bilaterally. Other scatteredsmall areas of calcified plaque are present bilaterally. There is a 1.4 x1.6 cm density seen posteriorly that appears to be loculated fluid withinthe major fissure. Fibrosis in the anterolateral right middle lobe isstable since 06/25/2007. No suspicious lung mass is seen. The bony structures are unremarkable. IMPRESSION: 1. No evidence of pulmonary embolism. 2. Evidence of asbestosis with calcified pleural plaques bilaterally mostdense along the hemidiaphragms. 3. Posterior bibasilar fibrosis or chronic atelectasis. 4. Diffuse emphysematous changes. Please note that all CT scans at this facility use dose modulation,iterative reconstruction, and/or weight-based dosing when appropriate toreduce radiation dose to as low as reasonably achievable. Dictated by Amarjit Andrade MD @ Dec 24 2017 12:19PM (Electronically Signed) Rula Walters MD CT from Last 3 Months or Most Recently Relevant to Health Maintenance Advance Directives Documents on File Type Date Recorded Patient Bridge Opener Expl [email or web address] POLST 01/15/2018 3:09 PM 12.6.18 * DNR (Latest Code Status on File) Date Activated Date Inactivated Comments 05/11/2020 7:57 PM 05/17/2020 3:43 PM Question Answer Comments Code Status Discussion: Discussed * DNR Date Activated Date Inactivated Comments 12/19/2017 3:04 PM 12/26/2017 5:42 PM Question Answer Comments Code Status Discussion: Discussed * Partial Code Date Activated Date Inactivated Comments 12/16/2017 3:17 AM 12/19/2017 3:04 PM Question Answer Comments Cardio Resuscitation: No Chest Compressions Ventilation: No Restrictions Drug Protocol: No Restrictions * Full Code Date Activated Date Inactivated Comments 02/17/2013 6:56 AM 02/17/2013 6:58 PM Care Teams Options Trader Relationship Specialty Start Date End Date Isidro Siegel MD [address] [place] [address] PCP - General Family Practice 05/17/20 Jamia Gutierrez AuD Audiology 04/04/07 Jourdan Osuna MD Family Practice 06/05/12 Antonio Doe, KATERINA Chiropractor 06/05/12 Curry Mendez MD Surgery - Otolaryngology 07/17/13 Jamia Gutierrez AuD Audiology 07/17/13 Katerine Gee, RT [address] [address] [place] [place] Respiratory Therapy Respiratory Therapist 07/16/18
[2023-06-28 15:50] LABS: Basophils Absolute Auto 0.03 K/uL (0.00-0.30); Basophils Percent Auto 0.3 % (0.0-3.0); Eosinophils Absolute Auto 0.01 K/uL (0.00-0.50); Eosinophils Percent Auto 0.1 % (0.0-7.0); Hematocrit 38.9 % (37.0-53.0); Hemoglobin* 13.1 gm/dL (13.5-17.5); Immature Granulocytes Abs Auto 0.04 K/uL (0.00-0.30); Immature Granulocytes Pct Auto 0.4 %; Lymphocytes Percent Auto 12.4 % (20-44); Mean Corpuscular HGB Conc 34 gm/dL (32-36); Mean Corpuscular Hemoglobin 31 pg (26-34); Mean Corpuscular Volume 92 fL (80-100); Monocytes Percent Auto 4.6 % (0.0-11.0); Neutrophils Percent Auto 82.2 % (42.0-72.0); Platelet Count* 317 K/uL (140-440); RDW Coefficient of Variation % 12.4 % (11.5-15.5); Red Blood Count 4.22 m/uL (4.30-5.90); White Blood Count* 9.29 K/uL (4.50-11.00)
[2023-06-28 16:06] LABS: Lactate Sepsis w/Reflex* 2.2 mmol/L (0.5-1.9)
[2023-06-28 16:11] LABS: Albumin* 4.5 g/dL (3.3-5.0); Chloride* 72 mmol/L (96-114); INR 1.32 (0.91-1.10); Prothrombin Time 17.2 Seconds
--- NOTE | 2023-06-28 16:11 | ED.GENADULT ---
HPI - General Adult General Date Seen: 06/28/23 Chief complaint: Weakness Stated complaint: Weakness Time Seen by Provider: 06/28/23 15:08 Source: patient, family, EMS, RN notes reviewed and old records reviewed Mode of arrival: EMS Limitations: no limitations History of Present Illness HPI narrative: Patient is an 78-year-old man brought in by EMS. He lives at home with his son. He tells me that he does not quite know here, his son called 911 today. He says he has felt a little tired the past few days, he says he has been drinking Ensure but has not been eating a lot. He specifically denies any problems with fevers, chills, focal weakness, headaches, chest pain, difficulty breathing, abdominal pain, vomiting, diarrhea, black or bloody stools, urinary symptoms. He is on oxygen at home chronically. His son, who arrived a little later in his ER stay, says that he is typically on 3 to 3.5 L of oxygen. He will sometimes use for when he is up and walking. He does not get around very well in general because of severe COPD. Otherwise, his son does feel that they generally do pretty well. His son notes that he has been staring off into space a bit the past few days, but is responsive if his son goes to get his attention. Son's primary concern was that he has been weak, more fatigued, decreased p.o. intake over the past 4-5 days. He confirms absence of fevers, significant cough, worsening shortness of breath, vomiting, diarrhea or other acute problems. Related Data Home Medications ?Medication ?Instructions ?Recorded ?Confirmed apixaban 5 mg tablet (Eliquis) 5 mg PO BID 12/26/21 06/28/23 carvedilol 6.25 mg tablet 6.25 mg PO BID 12/26/21 06/28/23 ipratropium 0.5 mg-albuterol 3 mg 3 ml inhalation QID 05/01/22 06/28/23 (2.5 mg base)/3 mL nebulization soln furosemide 40 mg tablet 40 mg PO BID edema 06/28/23 06/28/23 hydrochlorothiazide 25 mg tablet 25 mg PO BID swelling 06/28/23 06/28/23 sodium chloride 1,000 mg soluble 1,000 mg PO DAILY 06/28/23 06/28/23 tablet Previous Rx's ?Medication ?Instructions ?Recorded prednisone 10 mg tablet 10 mg PO DAILY #100 tabs 02/02/23 Allergies Allergy/AdvReac Type Severity Reaction Status Date / Time No Known Drug Allergies Allergy Verified 01/30/23 08:45 Review of Systems Status of ROS: Reports: 10 or more systems reviewed and unremarkable except as noted in History and below [facility] Medical History (Updated 06/28/23 @ 18:13 by Abbey Maher PA-C) Hyponatremia ?E87.1 - Hypo-osmolality and hyponatremia (ICD-10) Hypercapnia ?R06.89 - Other abnormalities of breathing (ICD-10) Debility ?R53.81 - Other malaise (ICD-10) H/O cardiomyopathy ?Z86.79 - Personal history of other diseases of the circulatory system (ICD-10) Chronic anticoagulation ?Z79.01 - custodial (current) use of anticoagulants (ICD-10) Uses bilevel positive airway pressure (BPAP) ventilation at home ?Z99.89 - Dependence on other enabling machines and devices (ICD-10) Thoracic compression fracture ?S22.000A - Wedge compression fracture of unspecified thoracic vertebra, initial encounter for closed fracture (ICD-10) Atrial fibrillation ?I48.91 - Unspecified atrial fibrillation (ICD-10) Oxygen dependent ?Z99.81 - Dependence on supplemental oxygen (ICD-10) Severe chronic obstructive pulmonary disease ?J44.9 - Chronic obstructive pulmonary disease, unspecified (ICD-10) Surgical History H/O vasectomy ?Z98.52 - Vasectomy status (ICD-10) H/O tympanomastoidectomy ?Z98.890 - Other specified postprocedural states (ICD-10) Social History 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 DNR/DNI. Former smoker, about 24 pack years. Rarely drinks alcohol What is your current living situation?: I presently have a place to live Problems where you live: no known problems Problems where you live details: na In the past 12 months, utilities in danger of being shut off: no In past 12 months, lack of transportation kept you from medical appts, meetings, work, or getting things needed for daily living: no In the past 12 mos, have been you worried that your food would run out before you had money to buy more?: never true In the past 12 mos, the food you bought just didn't last and you didn't have money to buy more?: never true Highest level of school completed/degree received: high school graduate Smoking Status: Former smoker What tobacco products do you use: cigarettes Smoking quit date/years: <= 15 years ago Do you use any of these nicotine containing products: None Nicotine containing products detail: [id number] 1ppd 2 cigs a day in 2019, nothing since 2020 Second hand tobacco smoke exposure: No How often do you have a drink containing alcohol: never How often do you have six or more drinks on one occasion: Never AUDIT-C Alcohol total score: 0 Non-prescribed substance use: denies use Caffeine: No How often does anyone, including family, friends and others, physically hurt you: never How often does anyone, including family, friends and others, insult or talk down to you: never How often does anyone, including family, friends and others, threaten you with harm: never How often does anyone, including family, friends and others, scream or curse at you: never service: No Exam Narrative: Exam Narrative: Vital signs as noted above. In general, an alert, nontoxic elderly male. He is breathing okay on 4 L of oxygen. Does smell somewhat of urine. Head: Normocephalic, atraumatic. Eyes: Pupils are equal reactive. Extraocular movements are full. Conjunctivae are normal. ENT: Mucous membranes are slightly dry. Neck: Supple without lymphadenopathy. Heart: Regular rate and rhythm. No murmur or rub. Lungs: Occasional scattered wheezes. No increased work of breathing. Abdomen: Soft and nontender. Somewhat distended. Extremities: Well perfused. Trace edema bilaterally. No calf tenderness. Pulses intact. Neurologic: Patient is alert and oriented to person and place. Speech is fluent. Face is symmetric. Moves all extremities equally. Affect: Normal. Skin: Warm and dry. Well perfused. Const: Vital Signs, click to edit/add: Vital Signs - 24 hr 06/28/23 15:13 06/28/23 15:30 06/28/23 15:31 Temperature 98.2 F Pulse Rate 48 L 65 Pulse Rate [Pulse Oximeter] 70 Respiratory Rate 20 Blood Pressure 98/79 Blood Pressure [Ri ght Upper Arm] 104/75 Pulse Oximetry 93 95 95 Oxygen Delivery Me thod Nasal Cannula Oxygen Flow Rate 4 06/28/23 15:32 06/28/23 15:33 06/28/23 15:34 Temperature Pulse Rate 57 L 59 L Pulse Rate [Pulse Oximeter] Respiratory Rate Blood Pressure 103/66 Blood Pressure [Ri ght Upper Arm] Pulse Oximetry 96 95 95 Oxygen Delivery Me thod Nasal Cannula Oxygen Flow Rate 06/28/23 15:45 06/28/23 16:00 06/28/23 16:02 Temperature Pulse Rate 61 67 67 Pulse Rate [Pulse Oximeter] Respiratory Rate Blood Pressure 120/80 Blood Pressure [Ri ght Upper Arm] Pulse Oximetry 96 91 95 Oxygen Delivery Me thod Oxygen Flow Rate 06/28/23 16:15 06/28/23 16:30 06/28/23 16:33 Temperature Pulse Rate 76 66 83 Pulse Rate [Pulse Oximeter] Respiratory Rate Blood Pressure 104/80 Blood Pressure [Ri ght Upper Arm] Pulse Oximetry 95 97 95 Oxygen Delivery Me thod Oxygen Flow Rate 06/28/23 16:45 06/28/23 17:00 06/28/23 17:02 Temperature Pulse Rate 65 65 67 Pulse Rate [Pulse Oximeter] Respiratory Rate Blood Pressure 113/66 Blood Pressure [Ri ght Upper Arm] Pulse Oximetry 97 95 93 Oxygen Delivery Me thod Oxygen Flow Rate 06/28/23 17:15 Temperature Pulse Rate 99 Pulse Rate [Pulse Oximeter] Respiratory Rate Blood Pressure Blood Pressure [Ri ght Upper Arm] Pulse Oximetry 94 Oxygen Delivery Me thod Oxygen Flow Rate Documenting provider has reviewed patient's vital signs: yes Course Course ED Course: Following evaluation, patient had an EKG which shows the normal sinus rhythm, first-degree AV block with a MS of 214 milliseconds. Ventricular rate is 69, a single PVC. T-waves are somewhat flattened but no acute ST segment changes. Point of care troponin was 0.02. Viral swab including COVID, influenza, RSV was negative. Radiology reads his chest x-ray as follows:Findings: The lungs are hyperinflated. Irregular opacities within the left lingula are more prominent on today`s study. Calcified pleural plaques are again noted. Stable blunting of the left costophrenic angle, scarring versus tiny pleural effusion. Trachea is midline. Cardiac silhouette is stable. Age-indeterminate compression fractures are present within the mid to lower thoracic spine. Impression: 1. More prominent irregular opacities overlying the left mid lung, pleural disease versus developing mass versus overlapping shadows. Recommend routine chest CT to adequately characterize. 2. Several age indeterminate thoracic vertebral body fractures. If there is concern for pathologic fractures, recommend thoracic spine MR. 3. No acute cardiopulmonary findings. No evidence of acute disease such as pneumonia. His labs were most notable for a sodium of 123, potassium of 3. A venous gas showed a pH of 7.47, pCO2 66, bicarb is 48. PO2 on this venous gas was in the normal range at 30. CBC shows a normal white blood cell count at 9.3, hemoglobin is 13.1. UA is pending. Lactate mildly elevated at 2.2, LFTs unremarkable, TSH pending. At this time, suspect symptomatic hyponatremia, patient does have CO2 retention chronically, looking back through his records his pCO2 has generally been in the upper 50s. I did turn his oxygen down just a little bit to 3 L instead of 4. I think this can be monitored. Right now I do not see an indication for BiPAP as patient's mentation is intact. No clear signs of infection in terms of fever, tachycardia, elevated white blood cell count, but UA is still pending. Plan will be admission for treatment of his hyponatremia and hypokalemia, and further evaluation is needed. Vital Signs Vital signs: Initial Vital Signs Temperature 98.2 F 06/28/23 15:13 Temperature Source Temporal Artery Scan 06/28/23 15:13 Pulse Rate 70 06/28/23 15:13 Pulse Rhythm Regular 06/28/23 15:13 Respiratory Rate 20 06/28/23 15:13 Blood Pressure 104/75 06/28/23 15:13 Blood Pressure Mean 84 06/28/23 15:13 Blood Pressure Position Sitting 06/28/23 15:13 Pulse Oximetry 93 06/28/23 15:13 Oxygen Delivery Method Nasal Cannula 06/28/23 15:13 Oxygen Flow Rate 4 06/28/23 15:13 Vital Signs Temperature 98.2 F 06/28/23 15:13 Pulse Rate 70 06/28/23 15:13 Respiratory Rate 20 06/28/23 15:13 Blood Pressure 104/75 06/28/23 15:13 Pulse Oximetry 93 06/28/23 15:13 Oxygen Delivery Method Nasal Cannula 06/28/23 15:13 Oxygen Flow Rate 4 06/28/23 15:13 Temperature 98.2 F 06/28/23 15:13 Pulse Rate 99 06/28/23 17:15 Respiratory Rate 20 06/28/23 18:33 Blood Pressure 113/66 06/28/23 17:02 Pulse Oximetry 91 06/28/23 18:33 Oxygen Delivery Method Nasal Cannula 06/28/23 18:33 Oxygen Flow Rate 2 06/28/23 18:33 Medications Administered Medications: Discontinued Medications Generic Name Dose Route Start Last Admin Trade Name Freq PRN Reason Stop Dose Admin Sodium Chloride 50 mls @ 100 mls/hr 06/28/23 16:33 06/28/23 16:55 3 % Sodium Chloride 500 Ml IV 06/28/23 17:02 100 mls/hr .Q30M [facility] Administration Medical Decision Making Lab Data Labs: Lab Results 06/28/23 Range/Units 15:25 WBC 9.29 (4.50-11.00) K/uL RBC 4.22 L (4.30-5.90) m/uL Hgb 13.1 L (13.5-17.5) gm/dL Hct 38.9 (37.0-53.0) % MCV 92 (80-100) fL MCH 31 (26-34) pg MCHC 34 (32-36) gm/dL RDW Coeff of Chiny[place] 12.4 (11.5-15.5) % Plt Count 317 (140-440) K/uL Neut % (Auto) 82.2 H (42.0-72.0) % Lymph % (Auto) 12.4 L (20-44) % [place] % (Auto) 4.6 (0.0-11.0) % Eos % (Auto) 0.1 (0.0-7.0) % Baso % (Auto) 0.3 (0.0-3.0) % Neut # (Auto) 7.60 H (1.7-7.0) K/uL Lymph # (Auto) 1.20 (0.90-2.90) K/uL [place] # (Auto) 0.40 (0.00-0.90) K/UL Eos # (Auto) 0.01 (0.00-0.50) K/uL Baso # (Auto) 0.03 (0.00-0.30) K/uL Abs Immat Gran (auto) 0.04 (0.00-0.30) K/uL Imm/Tot Granulo (auto) 0.4 % INR 1.32 H (0.91-1.10) VBG pH 7.473 H (7.32-7.43) VBG pCO2 66 H* (40-50) mmHG VBG pO2 30.1 (25-47) mmHG VBG HCO3 48 H (21-28) mmol/L Sodium 122 L* (135-149) mmol/L Potassium 3.0 L (3.6-5.1) mmol/L Chloride 72 L (96-114) mmol/L Carbon Dioxide 42 H* (20-32) mmol/L Anion Gap 8 (7-15) mEq/L BUN 41 H (7-30) mg/dL Creatinine 0.8 (0.5-1.5) mg/dL Estimated Creat Clear 47.25 Estimated GFR 89 ml/min Glucose 133 H (60-115) mg/dL Lactate 2.2 H (0.5-1.9) mmol/L Calcium 9.6 (8.4-10.6) mg/dL Total Bilirubin 1.4 (0.1-1.5) mg/dL Direct Bilirubin 0.5 (0.0-0.5) mg/dL AST 37 H (12-35) U/L ALT 19 (4-50) U/L Alkaline Phosphatase 101 (40-150) U/L C-Reactive Protein 1.0 (0.5-1.0) mg/dL Total Protein 7.8 (6.0-8.3) g/dL Albumin 4.5 (3.3-5.0) g/dL TSH 1.120 (0.270-4.200) uIU/mL SARS-CoV-2 (PCR) Negative SARS-CoV-2 (Negative) Influenza Type A (PCR) Negative PCR FLU A (Negative) Influenza Type B (PCR) Negative PCR FLU B (Negative) RSV (PCR) Negative PCR RSV (Negative) POC Troponin I 0.02 (0.01-0.04) ng/ml Discharge Plan Discharge Patient Disposition: Admitted As Observation
[2023-06-28 16:14] LABS: Creatinine* 0.8 mg/dL (0.5-1.5); Est. Creatinine Clearance* 47.25; Estimated Glomerular Filt Rate 89 ml/min
[2023-06-28 16:15] LABS: Alanine Aminotransferase* 19 U/L (4-50); Alkaline Phosphatase* 101 U/L (40-150); Aspartate Amino Transferase* 37 U/L (12-35); Bilirubin Direct* 0.5 mg/dL (0.0-0.5); Bilirubin Total* 1.4 mg/dL (0.1-1.5); Blood Urea Nitrogen* 41 mg/dL (7-30); Calcium* 9.6 mg/dL (8.4-10.6); Total Protein* 7.8 g/dL (6.0-8.3)
[2023-06-28 16:22] LABS: Slide Review Reflex No
[2023-06-28 16:32] LABS: PCR FLU A Negative PCR FLU A (Negative); PCR FLU B Negative PCR FLU B (Negative); PCR RSV Negative PCR RSV (Negative); SARS PCR* Negative SARS-CoV-2 (Negative)
[2023-06-28 16:34] LABS: pH VBG 7.473 (7.32-7.43)
[2023-06-28 16:36] LABS: PCO2 VBG 66 mmHG (40-50); PO2 VBG 30.1 mmHG (25-47)
[2023-06-28 16:37] LABS: HCO3 VBG 48 mmol/L (21-28)
[2023-06-28 16:44] LABS: Anion Gap 8 mEq/L (7-15); Sodium* 122 mmol/L (135-149)
[2023-06-28 16:46] LABS: Carbon Dioxide* 42 mmol/L (20-32)
--- NOTE | 2023-06-28 16:49 | PM.IMHP1 ---
Hospitalist- H&P: HPI History of Present Illness Date Seen: 06/28/23 Chief complaint: Weakness Narrative: Tip Flowers is a 78 year old male past medical history significant for atrial fibrillation on chronic anticoagulation, COPD on chronic steroid, O2 dependent (4L, BiPAP at night), history of hypercapnia, peripheral edema, bradycardia is admitted to the medical floor from the ED for further management symptomatic hyponatremia. Patient lives with his son, Escobar, who called EMS today as son notes he has had increasing weakness and fatigue, decreased oral intake over the last several days. Patient admits to feeling more tired than usual, attempting to drink Ensure but has very little appetite. No report of fevers, chills. Denies headaches or dizziness. Denies chest pain or worsening shortness of breath. Chronically on 4 L at home, using BiPAP at night. No abdominal pain, nausea, vomiting or change in stools. Last BM yesterday or today, patient unsure. No urinary symptoms. In the ED, patient noted to be hyponatremic, 122. Given 3% hypertonic saline. Potassium noted to be 3.0. EKG showed NSR. UA ordered, not yet collected. On review of care everywhere, hyponatremia is not new, but worsening. Has recently been seen in the clinic for peripheral edema management, diuretic changes, hyponatremia. Sodium drawn this morning at the clinic is pending. Previously admitted in January and April of 2022 for COVID and COPD exacerbation respectively. Review of Systems Narrative: REVIEW OF SYSTEMS: Complete review of systems performed and negative unless otherwise stated in HPI or below. [facility] Medical History (Updated 06/28/23 @ 18:13 by Abbey Maher PA-C) Hyponatremia ?E87.1 - Hypo-osmolality and hyponatremia (ICD-10) Hypercapnia ?R06.89 - Other abnormalities of breathing (ICD-10) Debility ?R53.81 - Other malaise (ICD-10) H/O cardiomyopathy ?Z86.79 - Personal history of other diseases of the circulatory system (ICD-10) Chronic anticoagulation ?Z79.01 - FPC (current) use of anticoagulants (ICD-10) Uses bilevel positive airway pressure (BPAP) ventilation at home ?Z99.89 - Dependence on other enabling machines and devices (ICD-10) Thoracic compression fracture ?S22.000A - Wedge compression fracture of unspecified thoracic vertebra, initial encounter for closed fracture (ICD-10) Atrial fibrillation ?I48.91 - Unspecified atrial fibrillation (ICD-10) Oxygen dependent ?Z99.81 - Dependence on supplemental oxygen (ICD-10) Severe chronic obstructive pulmonary disease ?J44.9 - Chronic obstructive pulmonary disease, unspecified (ICD-10) Surgical History H/O vasectomy ?Z98.52 - Vasectomy status (ICD-10) H/O tympanomastoidectomy ?Z98.890 - Other specified postprocedural states (ICD-10) Social History 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 DNR/DNI. Former smoker, about 24 pack years. Rarely drinks alcohol What is your current living situation?: I presently have a place to live Problems where you live: no known problems Problems where you live details: na In the past 12 months, utilities in danger of being shut off: no In past 12 months, lack of transportation kept you from medical appts, meetings, work, or getting things needed for daily living: no In the past 12 mos, have been you worried that your food would run out before you had money to buy more?: never true In the past 12 mos, the food you bought just didn't last and you didn't have money to buy more?: never true Highest level of school completed/degree received: high school graduate Smoking Status: Former smoker What tobacco products do you use: cigarettes Smoking quit date/years: <= 15 years ago Do you use any of these nicotine containing products: None Nicotine containing products detail: [id number] 1ppd 2 cigs a day in 2019, nothing since 2020 Second hand tobacco smoke exposure: No How often do you have a drink containing alcohol: never How often do you have six or more drinks on one occasion: Never AUDIT-C Alcohol total score: 0 Non-prescribed substance use: denies use Caffeine: No How often does anyone, including family, friends and others, physically hurt you: never How often does anyone, including family, friends and others, insult or talk down to you: never How often does anyone, including family, friends and others, threaten you with harm: never How often does anyone, including family, friends and others, scream or curse at you: never service: No Meds Home Medications and Allergies Home Medications ?Medication ?Instructions ?Recorded ?Confirmed ?Type apixaban 5 mg tablet (Eliquis) 5 mg PO BID 12/26/21 06/28/23 History carvedilol 6.25 mg tablet 6.25 mg PO BID 12/26/21 06/28/23 History ipratropium 0.5 mg-albuterol 3 mg 3 ml inhalation QID 05/01/22 06/28/23 History (2.5 mg base)/3 mL nebulization soln furosemide 40 mg tablet 40 mg PO BID edema 06/28/23 06/28/23 History hydrochlorothiazide 25 mg tablet 25 mg PO BID swelling 06/28/23 06/28/23 History sodium chloride 1,000 mg soluble 1,000 mg PO DAILY 06/28/23 06/28/23 History tablet Allergies Allergy/AdvReac Type Severity Reaction Status Date / Time No Known Drug Allergies Allergy Verified 01/30/23 08:45 Exam Narrative: Exam Narrative: PHYSICAL EXAM General: Pleasant, conversant, NAD HEENT: Normocephalic, atraumatic, sclera white, EOMI, oral mucosa moist Cardiovascular: RRR, S1S2. +1 pitting edema Pulmonary: Diminished throughout, expiratory wheezes in all bases, mild dyspnea on 3 L nasal cannula Abdominal: Soft, mildly distended, NTTP Neurological: Alert, answering questions appropriately, cranial nerves intact, no focal findings Extremities: No gross joint deformity or swelling. AROMI. Neurovascularly intact. Mild hand tremor noted, resolves at rest Skin: Warm, dry. Const: Vital Signs, click to edit/add: Vital Signs - 24 hr 06/28/23 15:13 06/28/23 15:30 06/28/23 15:31 Temperature 98.2 F Pulse Rate 48 L 65 Pulse Rate [Pulse Oximeter] 70 Respiratory Rate 20 Blood Pressure 98/79 Blood Pressure [Ri ght Upper Arm] 104/75 Pulse Oximetry 93 95 95 Oxygen Delivery Me thod Nasal Cannula Oxygen Flow Rate 4 06/28/23 15:32 06/28/23 15:34 Temperature Pulse Rate 57 L Pulse Rate [Pulse Oximeter] Respiratory Rate Blood Pressure 103/66 Blood Pressure [Ri ght Upper Arm] Pulse Oximetry 96 95 Oxygen Delivery Me thod Nasal Cannula Oxygen Flow Rate Hospitalist - H&P: Result Labs Labs: Short CBC 06/28/23 Range/Units 15:25 WBC 9.29 (4.50-11.00) K/uL Hgb 13.1 L (13.5-17.5) gm/dL Hct 38.9 (37.0-53.0) % Plt Count 317 (140-440) K/uL BMP 06/28/23 15:25 Sodium 122 L* Potassium 3.0 L Chloride 72 L Carbon Dioxide 42 H* BUN 41 H Creatinine 0.8 Calcium 9.6 Liver Function 06/28/23 Range/Units 15:25 Total Bilirubin 1.4 (0.1-1.5) mg/dL Direct Bilirubin 0.5 (0.0-0.5) mg/dL AST 37 H (12-35) U/L ALT 19 (4-50) U/L Alkaline Phosphatase 101 (40-150) U/L Albumin 4.5 (3.3-5.0) g/dL Imaging Chest x-ray: Attestation: I have reviewed the pertinent imaging results. Radiologist's impression: Technique: PA/lateral chest Comparison: Frontal chest January 30, 2023 Findings: The lungs are hyperinflated. Irregular opacities within the left lingula are more prominent on today`s study. Calcified pleural plaques are again noted. Stable blunting of the left costophrenic angle, scarring versus tiny pleural effusion. Trachea is midline. Cardiac silhouette is stable. Age-indeterminate compression fractures are present within the mid to lower thoracic spine. Impression: 1. More prominent irregular opacities overlying the left mid lung, pleural disease versus developing mass versus overlapping shadows. Recommend routine chest CT to adequately characterize. 2. Several age indeterminate thoracic vertebral body fractures. If there is concern for pathologic fractures, recommend thoracic spine MR. 3. No acute cardiopulmonary findings. Assessment and Plan Assessment and plan (1) Hyponatremia: Problem comment: This is not new. Sodium 127 on 06/11 in clinic. PCP recently discontinued his lasix and started on HCTZ but pt was taking both as son misunderstood directions Increasing fatigue and weakness, tremors, recent poor oral intake Sodium 122 on admission 3% hypertonic saline given in ED, will recheck sodium level Continue with gentle IV hydration, monitoring for fluid overload Continue home dose sodium chloride tablet Status: Acute (2) Hypokalemia: Problem comment: Potassium 3.0, recent poor oral intake Will supplement with oral replacement Status: Acute (3) Debility: Problem comment: Acute on chronic, recurrent, currently likely in setting of worsening hyponatremia, poor oral intake TSH 1.120, lactate 2.2, recheck following IVF, CRP 1.0 UA ordered PT/OT consults Status: Acute (4) Hypercapnia: Problem comment: VBG pCO2 66, baseline 54-60, 74 in 04/27. PH 7.473, HC03 48. Serum carbon dioxide 42 Home BiPAP overnight, recheck in a.m. Status: Acute (5) Severe chronic obstructive pulmonary disease: Problem comment: Gold E. Severe COPD/emphysema. Bilateral scarring Oxygen and prednisone dependent Continue qid nebs. Son says he has 2 inhalers as well (maybe Spiriva and a rescue inhaler?) Followed by Dr. Shakeel Eaton, Pulmonary Medicine [facility] Last PFT was in February of 2018 --FEV1 predicted 32%, FEV1/FVC% 44.21 Status: Acute (6) Oxygen dependent: Problem comment: With history of CO2 retention Chronically on 4 L at home, continue oxygen supplementation, maintaining saturations 88-92% Trilogy BiPAP at night continue same treatment as at home Status: Acute (7) Uses bilevel positive airway pressure (BPAP) ventilation at home: Problem comment: Trilogy device at night, previous settings: EPAP 8-12 4L O2 bleed in Status: Acute (8) On prednisone therapy: Problem comment: Chronic daily prednisone 10 mg daily. Previously has not tolerated attempts to taper Status: Acute (9) Atrial fibrillation: Problem comment: NSR in ED, troponin 0.02 (previously 0.01) Continue home dose carvedilol and apixaban Digoxin previously discontinued secondary to episodes of bradycardia Scheduled for outpatient echocardiogram on 07/10/2023 Limited Echocardiogram performed 05/2020 at [facility] 1. Normal LV size, normal global systolic function with an estimated EF of 65 - 70%. 2. Technically difficult exam. 3. Technically limited exam. Chamber Sizes and Function Normal left ventricular size, normal global systolic function with an estimated EF of 65 - 70%. Status: Acute (10) Chronic anticoagulation: Problem comment: Continue home Eliquis dosing Status: Acute (11) Peripheral edema: Problem comment: Lasix recently discontinued by PCP, started on HCTZ - hold for now given increased weakness and worsening hyponatremia Compression stockings, elevation Has been referred to Cardiology by PCP, considering Entresto, ECHO scheduled for 07/10/2023 Status: Acute (12) Opacity of lung on imaging study: Problem comment: CXR shows prominent irregular opacities overlying the left mid lung, pleural disease versus developing mass versus overlapping shadows Discussed with son and patient Consider chest CT for further delineation during hospital course or as an outpatient Status: Acute Total Time Spent Total Time Spent: Total time spent caring for the patient today was 60 minutes. This includes time spent for the visit reviewing the chart, time spent during the visit, time spent after the visit and documentation and planning in coordination of care.
[2023-06-28 16:55] LABS: Glucose* 133 mg/dL (60-115)
[2023-06-28] MEDS: 3 % SODIUM CHLORIDE 500 ml 50 ML 100 ML IV (16:55)
[2023-06-28] MEDS: 0.9 % SODIUM CHLORIDE 1000 ml 1,000 ML 125 ML IV (18:49)
[2023-06-28] MEDS: POTASSIUM CHLORIDE 10 MEQ CAPSULE ER 40 MEQ PO (18:49)
--- NOTE | 2023-06-28 19:57 | PC.NURSE ---
End of shift [id number] - Pt arrived from ED at approximately 1740. Alert, oriented to self and place, disoriented to situation. Tolerating O2 via nasal cannula at 2L. Denies SOB, nausea, vomiting. Reports decreased appetite, observed to eat a few bites of mashed potatoes and an applesauce. Family at bedside. Pt appears to be resting comfortably at end of shift.
[2023-06-28 20:19] LABS: Appearance Urine Clear (Clear); Bilirubin Urine Negative (Negative); Blood Urine Negative (Negative); Color Urine Yellow (Yellow); Glucose Urine Negative (Negative); Ketones Urine Negative (Negative); Leukocyte Esterase Urine Negative (Negative); Nitrite Urine Negative (Negative); Protein Urine 1+ (Negative); Specific Gravity Urine 1.015 (1.000-1.030); pH Urine 7.5 (5.0-8.5)
[2023-06-28 20:41] LABS: RBC Urine 0-2 (0-2); WBC Urine 0-2 (0-5)
[2023-06-28] MEDS: APIXABAN 5 MG TABLET PO (20:55)
[2023-06-28] MEDS: carvediloL 6.25 MG TABLET PO (20:55)
[2023-06-28] MEDS: IPRAT-ALBUT 0.5-2.5 MG/3 ML NEB 1 NEB IH (20:55)
[2023-06-28 21:00] LABS: Lactate* 1.5 mmol/L (0.5-1.9)
[2023-06-28 21:19] LABS: Sodium* 124 mmol/L (135-149)
--- NOTE | 2023-06-28 21:44 | PC.NURSE ---
Photography Instructor placed protective Mepilex to blanchable area noted to mid spine. Pt denied tenderness/pain to this area when asked.
[2023-06-28] MEDS: 0.9 % SODIUM CHLORIDE 1000 ml 1,000 ML 100 ML IV (22:04)
[2023-06-29] VITALS (9 sets, daily range): BP systolic 93–116; BP diastolic 54–87; PULSE 48–73; RESP 13–21; TEMP 35.9–37; O2SAT 86–95
[2023-06-29] MEDS: 0.9 % SODIUM CHLORIDE 1000 ml 1,000 ML 100 ML IV (03:20)
--- NOTE | 2023-06-29 06:28 | PC.NURSE ---
End of shift note [id number]: Pt noted to be alert & oriented x 4. He is transferring/ambulating with assist of 1 using FWW and gait belt and has been continent of bladder throughout the shift using urinal for toileting. Pt has been afebrile and is on oxygen 2 LPM with home Bipap worn overnight. Oxygen titrated down to 1.5 LPM though O2 sat dropped to 86-87%- oxygen was then resumed at 2 LPM. IV to L wrist patent with NS running per order. Ground Support Equipment Mechanic noted pt had removed nasal cannula once this shift and needed reminder to put back on. He also refused Bipap at HS though was accepting to wear after medical technical writer reminded him that this is per MD order at night. Pt on tele with A fib with NVR noted which is not a new finding for this patient. Pt requested to sleep with pajama pants on last evening. Mepilex placed to mid spine due to blanchable redness observed. Pt noted to have flat affect with staff and family interactions.?He needs encouragement to with po fluids.
[2023-06-29 07:50] LABS: HCO3 VBG 41 mmol/L (21-28); PCO2 VBG 48 mmHG (40-50); PO2 VBG 36.8 mmHG (25-47); pH VBG 7.544 (7.32-7.43)
[2023-06-29 07:53] LABS: Basophils Absolute Auto 0.03 K/uL (0.00-0.30); Basophils Percent Auto 0.3 % (0.0-3.0); Eosinophils Absolute Auto 0.12 K/uL (0.00-0.50); Eosinophils Percent Auto 1.4 % (0.0-7.0); Hematocrit 34.4 % (37.0-53.0); Hemoglobin* 11.6 gm/dL (13.5-17.5); Immature Granulocytes Abs Auto 0.03 K/uL (0.00-0.30); Immature Granulocytes Pct Auto 0.3 %; Lymphocytes Percent Auto 14.3 % (20-44); Mean Corpuscular HGB Conc 34 gm/dL (32-36); Mean Corpuscular Hemoglobin 31 pg (26-34); Mean Corpuscular Volume 93 fL (80-100); Neutrophils Percent Auto 75.7 % (42.0-72.0); Platelet Count* 254 K/uL (140-440); RDW Coefficient of Variation % 12.6 % (11.5-15.5); Red Blood Count 3.69 m/uL (4.30-5.90); White Blood Count* 8.79 K/uL (4.50-11.00)
[2023-06-29 08:06] LABS: Chloride* 83 mmol/L (96-114); Sodium* 125 mmol/L (135-149)
[2023-06-29 08:09] LABS: Anion Gap 3 mEq/L (7-15); Blood Urea Nitrogen* 29 mg/dL (7-30); Carbon Dioxide* 39 mmol/L (20-32); Creatinine* 0.7 mg/dL (0.5-1.5); Est. Creatinine Clearance* 49.33; Estimated Glomerular Filt Rate 93 ml/min; Glucose* 106 mg/dL (60-115)
[2023-06-29 08:10] LABS: Calcium* 8.7 mg/dL (8.4-10.6); Magnesium* 2.2 mg/dL (1.5-2.6)
[2023-06-29 08:26] LABS: Slide Review Reflex No
[2023-06-29] MEDS: APIXABAN 5 MG TABLET PO ×2 (09:32→21:05)
[2023-06-29] MEDS: SODIUM CHLORIDE 1 GM TABLET PO ×2 (09:33→13:41)
[2023-06-29] MEDS: carvediloL 6.25 MG TABLET PO ×2 (09:33→21:06)
[2023-06-29] MEDS: POTASSIUM BICARB 25 MEQ EFFERVESCENT TAB PO (09:34)
[2023-06-29] MEDS: predniSONE 10 MG TABLET 30 MG PO (09:34)
[2023-06-29] MEDS: POTASSIUM CHLORIDE 10 MEQ CAPSULE ER 20 MEQ PO (09:34)
[2023-06-29] MEDS: ACETAMINOPHEN 325 MG TABLET PO (09:35)
[2023-06-29] MEDS: SODIUM CHLORIDE 0.9 % (FLUSH) 10 ML SYRINGE 5 ML IVF ×3 (09:35→22:48)
[2023-06-29] MEDS: FUROSEMIDE 40 MG TABLET PO (09:37)
--- NOTE | 2023-06-29 11:12 | PC.NURSE ---
Addendum entered by Danay Og RN 06/29/23 14:07: He was able to ambulated from sink side of bed to his recliner this am with assist of 1. He did sit up for a while until OT assisted him back to bed. He has been pretty sleepy since he went back to bed. Notified Dr. Varghese that he is not eating and hard to awaken him. Ordered received for a CT scan and VBG. Upon return from the CT he was more awake. Did get him to take his sodium tab and drank a little more of the potassium drink from this morning. Went to put him back on the his home bipap and he did have a small emesis as the mask started. Cleaned up him and his mask and noted his O2 sat was in the low 70's had RT come take a look wondering if he aspirated a little. Will update Dr. Varghese about this. Offered to get him something for lunch as he did not take in any breakfast but he is declining to eat. Offered ensure shake and still say no. Will continue to monitor until the next shift arrives. Original Note: offered to help him eat and he refused. Offered to get him an ensure shake and he refused.
--- NOTE | 2023-06-29 12:59 | CRLHL7_ITS ---
For Patients: As a result of the Century Cures Act, medical imaging exams and procedure reports are released immediately into your electronic medical record. You may view this report before your referring provider. If you have questions, please contact your health care provider. INDICATION: AMS TECHNIQUE: Head CT without contrast. COMPARISON: None. FINDINGS: CSF spaces: Mild global parenchymal volume loss. Brain parenchyma and extra-axial spaces: There are mild nonspecific low attenuation white matter changes consistent with chronic microvascular disease. No sign of mass effect, hemorrhage, or midline shift. Skull base and calvarium: The visualized paranasal sinuses and mastoid air cells demonstrate no acute or significant findings. The visualized orbits are grossly unremarkable. No skull fractures. IMPRESSION: No evidence of acute intracranial abnormality on this unenhanced CT. Please note that all CT scans at this facility use dose modulation, iterative reconstruction, and/or weight-based dosing when appropriate to reduce radiation dose to as low as reasonably achievable. Dictated by Khari Hameed MD @ 06/29/2023 2:16:42 PM (Electronically Signed)
[2023-06-29 13:45] LABS: HCO3 VBG 43 mmol/L (21-28); PCO2 VBG 59 mmHG (40-50); PO2 VBG < 30.1 mmHG (25-47)
[2023-06-29 14:05] LABS: Chloride* 83 mmol/L (96-114); Sodium* 127 mmol/L (135-149)
[2023-06-29 14:06] LABS: Potassium* 3.8 mmol/L (3.6-5.1)
[2023-06-29 14:08] LABS: Anion Gap 5 mEq/L (7-15); Blood Urea Nitrogen* 29 mg/dL (7-30); Carbon Dioxide* 39 mmol/L (20-32); Creatinine* 0.8 mg/dL (0.5-1.5); Est. Creatinine Clearance* 49.33; Estimated Glomerular Filt Rate 89 ml/min
[2023-06-29 14:09] LABS: Calcium* 9.1 mg/dL (8.4-10.6); Glucose* 125 mg/dL (60-115)
--- NOTE | 2023-06-29 15:25 | P.IMPN_ITS ---
Progress Note: A&P Assessment and plan (1) Debility: Problem details: Acute on chronic, recurrent, currently likely in setting of worsening hyponatremia, poor oral intake TSH 1.120, lactate 2.2, recheck following IVF, CRP 1.0 UA ordered PT/OT consults Status: Acute (2) Hyponatremia: Problem details: Hyponatremia likely due to hydrochlorothiazide therapy. Stop hydrochlorothiazide and restart furosemide. At this point he does not appear to be volume overloaded so may not even need furosemide. Continue to address other electrolyte abnormalities. Not clear that his current hyponatremia is causing his apparent failure to thrive. Status: Acute (3) Chronic anticoagulation: Problem details: Continue home Eliquis dosing. Monitor renal function. May need dose adjustment Status: Acute (4) Uses bilevel positive airway pressure (BPAP) ventilation at home: Problem details: Trilogy device at night, previous settings: EPAP 8-12 4L O2 bleed in Status: Acute (5) Chronic respiratory failure with hypoxia and hypercapnia: Problem details: Acute on chronic respiratory failure with COVID infection. Patient reports back to baseline respiratory failure today on discharge Status: Acute (6) On prednisone therapy: Problem details: Chronic daily prednisone 10 mg daily. Previously has not tolerated attempts to taper. Mild increased stress dose steroids with prednisone 30 mg daily. Status: Acute (7) Peripheral edema: Problem details: Lasix recently discontinued by PCP, started on HCTZ - hold for now given incr eased weakness and worsening hyponatremia Compression stockings, elevation Has been referred to Cardiology by PCP, considering Entresto, ECHO scheduled for 07/10/2023 Status: Acute (8) Hypokalemia: Problem details: Potassium 3.0, recent poor oral intake Will supplement with oral replacement Status: Acute (9) Opacity of lung on imaging study: Problem details: CXR shows prominent irregular opacities overlying the left mid lung, pleural disease versus developing mass versus overlapping shadows Discussed with son and patient Consider chest CT for further delineation during hospital course or as an outpatient Status: Acute (10) Palliative care encounter: Problem details: Continue attempts to communicate with patient and family about goals of care and apparent failure to thrive with multiple medical problems and comorbidities and frailty. Status: Acute Plan Continue in hospital for management of hyponatremia, poor oral intake, decreased mental status. Time Spent With Patient Total time spent: Total time spent is 55 minutes, 45 minutes in coordination of care and discussing with patient and other providers management of somnolence, weakness, poor p.o. intake Subjective Date Seen: 06/29/23 Interval history: Tip Flowers is a 78 year old male past medical history significant for atrial fibrillation on chronic anticoagulation, COPD on chronic steroid, O2 dependent (4L, BiPAP at night), history of hypercapnia, peripheral edema, bradycardia is admitted to the medical floor from the ED for further management symptomatic hyponatremia. Patient lives with his son, Escobar, who called EMS today as son notes he has had increasing weakness and fatigue, decreased oral intake over the last several days. Patient admits to feeling more tired than usual, attempting to drink Ensure but has very little appetite. No report of fevers, chills. Denies headaches or dizziness. Denies chest pain or worsening shortness of breath. Chronically on 4 L at home, using BiPAP at night. No abdominal pain, nausea, vomiting or change in stools. Last BM yesterday or today, patient unsure. No urinary symptoms. In the ED, patient noted to be hyponatremic, 122. Given 3% hypertonic saline. Potassium noted to be 3.0. EKG showed NSR. UA ordered, not yet collected. Patient was previously on furosemide to manage lower extremity edema. June 11 was switched to hydrochlorothiazide 25 b.i.d. for edema. Has subsequently developed hyponatremia. June 28. Today patient is hard to arouse. When he does arouse he is able to carry on a limited conversation. He does not report any concerns or symptoms. He is not able to tell me significant details of what what happened at home. He reports no concerns on his own part. He is sleeping in bed most of the day. He has had little to eat all day long. When taking his medications today he did have an episode of aspiration where he vomited up a small amount of potassium bicarbonate into his BiPAP mask. Exam Narrative: Exam Narrative: Sleepy and arouses at times to voice and at times to touch. Minimally verbally interactive. Appears withdrawn. Appears cachectic. Attempt to engage him in conversation about goals of care and he tells me what every think. He does not indicate what his goals are in any way. He tells me he is hungry but has had almost nothing to eat today. Refusing the nurse attempt to feed him. He appears in no obvious respiratory distress. On nasal cannula 2 L he is 94%. Oropharynx with dry mucous membranes. Neck is supple without mass or sneha nopathy. Respirations are clear to auscultation. He has marked decreased breath sounds in all lung mackey but no wheezing. Cardiovascular: S1, S2, regular rate and rhythm. Abdomen is soft without tenderness or mass. Extremities without edema. Const: Vital Signs, click to edit/add: Vital Signs - 24 hr 06/28/23 15:30 06/28/23 15:31 06/28/23 15:32 Temperature Pulse Rate 48 L 65 57 L Pulse Rate [Pulse Oximeter] Pulse Rate [orthos tatic lying Right Radial] Pulse Rate [orthos tatic sitting Righ t Radial] Pulse Rate [orthos tatic standing Rig ht Radial] Respiratory Rate Blood Pressure 98/79 103/66 Blood Pressure [Ri ght Arm] Blood Pressure [or thostatic lying Ri ght Arm] Blood Pressure [or thostatic sitting Right Arm] Blood Pressure [or thostatic standing Right Arm] Pulse Oximetry 95 95 96 Oxygen Delivery Me thod Oxygen Flow Rate 06/28/23 15:33 06/28/23 15:34 06/28/23 15:45 Temperature Pulse Rate 59 L 61 Pulse Rate [Pulse Oximeter] Pulse Rate [orthos tatic lying Right Radial] Pulse Rate [orthos tatic sitting Righ t Radial] Pulse Rate [orthos tatic standing Rig ht Radial] Respiratory Rate Blood Pressure Blood Pressure [Ri ght Arm] Blood Pressure [or thostatic lying Ri ght Arm] Blood Pressure [or thostatic sitting Right Arm] Blood Pressure [or thostatic standing Right Arm] Pulse Oximetry 95 95 96 Oxygen Delivery Me thod Nasal Cannula Oxygen Flow Rate 06/28/23 16:00 06/28/23 16:02 06/28/23 16:15 Temperature Pulse Rate 67 67 76 Pulse Rate [Pulse Oximeter] Pulse Rate [orthos tatic lying Right Radial] Pulse Rate [orthos tatic sitting Righ t Radial] Pulse Rate [orthos tatic standing Rig ht Radial] Respiratory Rate Blood Pressure 120/80 Blood Pressure [Ri ght Arm] Blood Pressure [or thostatic lying Ri ght Arm] Blood Pressure [or thostatic sitting Right Arm] Blood Pressure [or thostatic standing Right Arm] Pulse Oximetry 91 95 95 Oxygen Delivery Me thod Oxygen Flow Rate 06/28/23 16:30 06/28/23 16:33 06/28/23 16:45 Temperature Pulse Rate 66 83 65 Pulse Rate [Pulse Oximeter] Pulse Rate [orthos tatic lying Right Radial] Pulse Rate [orthos tatic sitting Righ t Radial] Pulse Rate [orthos tatic standing Rig ht Radial] Respiratory Rate Blood Pressure 104/80 Blood Pressure [Ri ght Arm] Blood Pressure [or thostatic lying Ri ght Arm] Blood Pressure [or thostatic sitting Right Arm] Blood Pressure [or thostatic standing Right Arm] Pulse Oximetry 97 95 97 Oxygen Delivery Me thod Oxygen Flow Rate 06/28/23 17:00 06/28/23 17:02 06/28/23 17:15 Temperature Pulse Rate 65 67 99 Pulse Rate [Pulse Oximeter] Pulse Rate [orthos tatic lying Right Radial] Pulse Rate [orthos tatic sitting Righ t Radial] Pulse Rate [orthos tatic standing Rig ht Radial] Respiratory Rate Blood Pressure 113/66 Blood Pressure [Ri ght Arm] Blood Pressure [or thostatic lying Ri ght Arm] Blood Pressure [or thostatic sitting Right Arm] Blood Pressure [or thostatic standing Right Arm] Pulse Oximetry 95 93 94 Oxygen Delivery Me thod Oxygen Flow Rate 06/28/23 18:33 06/28/23 18:33 06/28/23 19:07 Temperature 98.7 F Pulse Rate 109 H Pulse Rate [Pulse Oximeter] 98 Pulse Rate [orthos tatic lying Right Radial] Pulse Rate [orthos tatic sitting Righ t Radial] Pulse Rate [orthos tatic standing Rig ht Radial] Respiratory Rate 20 20 Blood Pressure Blood Pressure [Ri ght Arm] 115/81 Blood Pressure [or thostatic lying Ri ght Arm] Blood Pressure [or thostatic sitting Right Arm] Blood Pressure [or thostatic standing Right Arm] Pulse Oximetry 91 91 Oxygen Delivery Me thod Nasal Cannula Nasal Cannula Oxygen Flow Rate 2 2 06/28/23 19:43 06/28/23 19:49 06/28/23 19:52 Temperature 98.7 F 98.2 F Pulse Rate Pulse Rate [Pulse Oximeter] 98 70 Pulse Rate [orthos tatic lying Right Radial] Pulse Rate [orthos tatic sitting Righ t Radial] Pulse Rate [orthos tatic standing Rig ht Radial] Respiratory Rate 20 20 18 Blood Pressure Blood Pressure [Ri ght Arm] 115/81 105/73 Blood Pressure [or thostatic lying Ri ght Arm] Blood Pressure [or thostatic sitting Right Arm] Blood Pressure [or thostatic standing Right Arm] Pulse Oximetry 91 91 90 Oxygen Delivery Me thod Nasal Cannula Nasal Cannula Nasal Cannula Oxygen Flow Rate 2 2 2 06/28/23 23:00 06/28/23 23:41 06/28/23 23:42 Temperature 97.5 F L Pulse Rate 64 Pulse Rate [Pulse Oximeter] 63 63 Pulse Rate [orthos tatic lying Right Radial] Pulse Rate [orthos tatic sitting Righ t Radial] Pulse Rate [orthos tatic standing Rig ht Radial] Respiratory Rate 18 18 Blood Pressure Blood Pressure [Ri ght Arm] 106/65 Blood Pressure [or thostatic lying Ri ght Arm] Blood Pressure [or thostatic sitting Right Arm] Blood Pressure [or thostatic standing Right Arm] Pulse Oximetry 92 Oxygen Delivery Me thod BiPAP Oxygen Flow Rate 1.5 06/29/23 03:11 06/29/23 07:00 06/29/23 07:00 Temperature 97.6 F 97.4 F L Pulse Rate Pulse Rate [Pulse Oximeter] 61 61 61 Pulse Rate [orthos tatic lying Right Radial] Pulse Rate [orthos tatic sitting Righ t Radial] Pulse Rate [orthos tatic standing Rig ht Radial] Respiratory Rate 13 18 18 Blood Pressure Blood Pressure [Ri ght Arm] 97/70 100/65 Blood Pressure [or thostatic lying Ri ght Arm] Blood Pressure [or thostatic sitting Right Arm] Blood Pressure [or thostatic standing Right Arm] Pulse Oximetry 90 95 Oxygen Delivery Me thod BiPAP BiPAP Oxygen Flow Rate 2 06/29/23 07:00 06/29/23 09:21 06/29/23 11:00 Temperature 96.7 F L Pulse Rate 48 L Pulse Rate [Pulse Oximeter] 62 Pulse Rate [orthos tatic lying Right Radial] 58 L Pulse Rate [orthos tatic sitting Righ t Radial] 56 L Pulse Rate [orthos tatic standing Rig ht Radial] 73 Respiratory Rate 15 Blood Pressure Blood Pressure [Ri ght Arm] 103/72 Blood Pressure [or thostatic lying Ri ght Arm] 93/67 Blood Pressure [or thostatic sitting Right Arm] 95/69 Blood Pressure [or thostatic standing Right Arm] 108/87 Pulse Oximetry 94 Oxygen Delivery Me thod BiPAP Oxygen Flow Rate Labs Labs: Laboratory Results - last 24 hr 06/28/23 06/28/23 06/28/23 15:25 20:11 20:55 WBC 9.29 RBC 4.22 L Hgb 13.1 L Hct 38.9 MCV 92 MCH 31 MCHC 34 RDW Coeff of [place] 12.4 Plt Count 317 Neut % (Auto) 82.2 H Lymph % (Auto) 12.4 L [place] % (Auto) 4.6 Eos % (Auto) 0.1 Baso % (Auto) 0.3 Neut # (Auto) 7.60 H Lymph # (Auto) 1.20 [place] # (Auto) 0.40 Eos # (Auto) 0.01 Baso # (Auto) 0.03 Abs Immat Gran (auto) 0.04 Imm/Tot Granulo (auto) 0.4 INR 1.32 H VBG pH 7.473 H VBG pCO2 66 H* VBG pO2 30.1 VBG HCO3 48 H Sodium 122 L* 124 L* Potassium 3.0 L Chloride 72 L Carbon Dioxide 42 H* Anion Gap 8 BUN 41 H Creatinine 0.8 Estimated Creat Clear 47.25 Estimated GFR 89 Glucose 133 H Lactate 2.2 H 1.5 Calcium 9.6 Magnesium Total Bilirubin 1.4 Direct Bilirubin 0.5 AST 37 H ALT 19 Alkaline Phosphatase 101 C-Reactive Protein 1.0 Total Protein 7.8 Albumin 4.5 TSH 1.120 Urine Color Yellow Urine Appearance Clear Urine pH 7.5 Ur Specific [place] 1.015 Urine Protein 1+ A Urine Glucose (UA) Negative Urine Ketones Negative Urine Blood Negative Urine Nitrite Negative Urine Bilirubin Negative Urine Urobilinogen 4.0 A Ur Leukocyte Esterase Negative Urine RBC 0-2 Urine WBC 0-2 Ur Squamous Epith Cells None Urine Bacteria None SARS-CoV-2 (PCR) Negative SARS-CoV-2 Influenza Type A (PCR) Negative PCR FLU A Influenza Type B (PCR) Negative PCR FLU B RSV (PCR) Negative PCR RSV POC Troponin I 0.02 06/29/23 06/29/23 06/29/23 07:33 07:33 13:41 WBC 8.79 RBC 3.69 L Hgb 11.6 L Hct 34.4 L MCV 93 MCH 31 MCHC 34 RDW Coeff of [place] 12.6 Plt Count 254 Neut % (Auto) 75.7 H Lymph % (Auto) 14.3 L [place] % (Auto) 8.0 Eos % (Auto) 1.4 Baso % (Auto) 0.3 Neut # (Auto) 6.70 Lymph # (Auto) 1.30 [place] # (Auto) 0.70 Eos # (Auto) 0.12 Baso # (Auto) 0.03 Abs Immat Gran (auto) 0.03 Imm/Tot Granulo (auto) 0.3 INR VBG pH 7.544 H 7.470 H VBG pCO2 48 59 H VBG pO2 36.8 < 30.1 VBG HCO3 41 H 43 H Sodium 125 L 127 L Potassium 3.0 L 3.8 Chloride 83 L 83 L Carbon Dioxide 39 H 39 H Anion Gap 3 L 5 L BUN 29 29 Creatinine 0.7 0.8 Estimated Creat Clear 49.33 49.33 Estimated GFR 93 89 Glucose 106 125 H Lactate Calcium 8.7 9.1 Magnesium 2.2 Cancelled Total Bilirubin Direct Bilirubin AST ALT Alkaline Phosphatase C-Reactive Protein Total Protein Albumin TSH Urine Color Urine Appearance Urine pH Ur Specific [place] Urine Protein Urine Glucose (UA) Urine Ketones Urine Blood Urine Nitrite Urine Bilirubin Urine Urobilinogen Ur Leukocyte Esterase Urine RBC Urine WBC Ur Squamous Epith Cells Urine Bacteria SARS-CoV-2 (PCR) Influenza Type A (PCR) Influenza Type B (PCR) RSV (PCR) POC Troponin I
[2023-06-29] MEDS: 5 % DEX/0.9 SOD CHL+KCL 20 mEq 1,000 ML 75 ML IV (16:33)
[2023-06-29] MEDS: HYDROCORTISONE SOD SUCCINATE 50 MG/ML inj 100 MG IVP (16:41)
--- NOTE | 2023-06-29 19:29 | PC.NURSE ---
Pt sleepy and refusing all meds and oral intake on shift. Repositioned min Q2H. Home BiPAP with O2 bleed in to maintain sats above 88%. Chuck, RT following pt during shift, adjusting O2 PRN.
--- NOTE | 2023-06-29 20:26 | PM.EN ---
Chart Event Note Date Seen: 06/29/23 Chart Event Note: Phone call conversation with patient's youngest son, Escobar. Updated him to let him know that his father has had very little oral intake over the course of the day, refusing to eat or even drink. Oxygen requirements continue to increase, continues on home BiPAP. Let son know that myself and Dr. Varghese had a discussion with the patient regarding his goals however really could not verbalize what he would like us to do for him. Instead telling us to do whatever we thought was appropriate. After discussing with his son, we will continue our current course of care. Escobar will reach out to family to discuss goals of care and follow-up tomorrow. He understands that his father could pass overnight though I told him that I could not see any acute abnormalities that would cause this other than perhaps being tired, and from chronic comorbidities.
[2023-06-29] MEDS: IPRAT-ALBUT 0.5-2.5 MG/3 ML NEB 1 NEB IH (21:07)
[2023-06-29] MEDS: HYDROCORTISONE SOD SUCCINATE 50 MG/ML inj IVP (22:48)
[2023-06-30] VITALS (7 sets, daily range): BP systolic 91–120; BP diastolic 58–95; PULSE 54–97; RESP 18–21; TEMP 36.4–37.4; O2SAT 89–94
[2023-06-30] MEDS: 5 % DEX/0.9 SOD CHL+KCL 20 mEq 1,000 ML 75 ML IV ×2 (03:40→16:27)
[2023-06-30] MEDS: HYDROCORTISONE SOD SUCCINATE 50 MG/ML inj IVP ×2 (06:30→16:27)
--- NOTE | 2023-06-30 06:40 | PC.NURSE ---
End of shift note [id number]: Pt alert & oriented to self though has had confusion noted this shift. He did not recall the conversation MD Varghese had with him earlier in the day when evening hospitalist referenced this discussion when discussing goals of care. He has also been incontinent of bowel and bladder which is a change compared to 06/28/23 when he was continent of bladder using urinal. Staff have been providing repositioning and toileting in bed with patient wearing brief for incontinence. IV in place to L wrist with IV fluid running per order in place. Chief Librarian Branch placed new Mepilex dressing to sacrum to provide protection to this area. He refused supper last evening including nutritional supplement drink despite encouragement. Pt has been afebrile this shift. His sons were here to visit last evening and son Escobar had phone discussion with Abbey Sinclair regarding goals of care and patient declining. Home Bipap has been worn 4-7L throughout the shift due to severe COPD. Pt refused to have SCDs applied when approached. He remains on tele with sinus bradycardia with first degree AV block noted. ?
[2023-06-30 08:07] LABS: Chloride* 92 mmol/L (96-114)
[2023-06-30 08:08] LABS: Potassium* 3.4 mmol/L (3.6-5.1); Sodium* 129 mmol/L (135-149)
[2023-06-30 08:10] LABS: Creatinine* 0.6 mg/dL (0.5-1.5); Est. Creatinine Clearance* 47.63; Estimated Glomerular Filt Rate 98 ml/min
[2023-06-30 08:11] LABS: Anion Gap 4 mEq/L (7-15); Blood Urea Nitrogen* 22 mg/dL (7-30); Calcium* 8.8 mg/dL (8.4-10.6); Carbon Dioxide* 33 mmol/L (20-32); Glucose* 137 mg/dL (60-115)
[2023-06-30] MEDS: FUROSEMIDE 40 MG TABLET PO (08:41)
[2023-06-30] MEDS: APIXABAN 5 MG TABLET PO ×2 (08:41→21:33)
[2023-06-30] MEDS: POTASSIUM CHLORIDE 10 MEQ CAPSULE ER 20 MEQ PO (08:42)
[2023-06-30] MEDS: SODIUM CHLORIDE 1 GM TABLET PO (08:42)
[2023-06-30] MEDS: IPRAT-ALBUT 0.5-2.5 MG/3 ML NEB 1 NEB IH (08:42)
[2023-06-30] MEDS: carvediloL 6.25 MG TABLET PO ×2 (08:42→21:33)
--- NOTE | 2023-06-30 14:03 | P.IMPN_ITS ---
Progress Note: A&P Assessment and plan (1) Debility: Problem details: Acute on chronic. 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 Status: Acute (2) Hyponatremia: Problem details: Hyponatremia likely due to hydrochlorothiazide therapy. Stop hydrochlorothiazide and restart furosemide. At this point he does not appear to be volume overloaded so may not even need furosemide. Continue to address other electrolyte abnormalities. Not clear that his current hyponatremia is causing his apparent failure to thrive. Status: Acute (3) Chronic anticoagulation: Problem details: Continue home Eliquis dosing. Monitor renal function. May need dose adjustment. For AFib Status: Acute (4) Uses bilevel positive airway pressure (BPAP) ventilation at home: Problem details: Trilogy device at night, previous settings: EPAP 8-12 3 L per nasal cannula when not on BiPAP Status: Acute (5) Chronic respiratory failure with hypoxia and hypercapnia: Problem details: Acute on chronic respiratory failure with COVID infection. Patient reports he is close to baseline dyspnea Status: Acute (6) On prednisone therapy: Problem details: Chronic daily prednisone 10 mg daily. Previously has not tolerated attempts to taper. Stress dose steroids. Status: Acute (7) Peripheral edema: Problem details: Lasix recently discontinued by PCP, started on HCTZ - hold for now given increased weakness and worsening hyponatremia Compression stockings, elevation Has been referred to Cardiology by PCP, considering [facility] scheduled for 07/10/2023 Status: Acute (8) Hypokalemia: Problem details: Monitor and follow. Status: Acute (9) Opacity of lung on imaging study: Problem details: CXR shows prominent irregular opacities overlying the left mid lung, pleural disease versus developing mass versus overlapping shadows Discussed with son and patient Consider chest CT for further delineation during hospital course or as an outpatient Status: Acute (10) Palliative care encounter: Problem details: Continue attempts to communicate with patient and family about goals of care and apparent failure to thrive with multiple medical problems and comorbidities and frailty. Status: Acute (11) COPD exacerbation: Problem details: Severe baseline COPD on chronic oxygen and chronic prednisone. Suspect COPD exacerbation at admission. Stress dose steroids Status: Acute (12) Altered mental status: Problem details: Patient has depressed mental status: Sleeping most the day, hard to arouse, not wanting to get out of bed, not eating, minimal verbal communication, apathetic. Cause for this is unclear. Probably not due to hyponatremia alone. Consider depression, the burden of his cachexia and disability from COPD on his quality of life. Status: Acute (13) Severe chronic obstructive pulmonary disease: Problem details: Gold E. Severe COPD/emphysema. Bilateral scarring Oxygen and prednisone dependent Continue qid nebs. Son says he has 2 inhalers as well (maybe Spiriva and a rescue inhaler?) Followed by Dr. Shakeel Eaton, Pulmonary Medicine [facility] Last PFT was in February of 2018 --FEV1 predicted 32%, FEV1/FVC% 44.21 Status: Acute Plan Continue in-hospital for management of COPD, hyponatremia, cachexia/malnutrition Time Spent With Patient Total time spent: Total time spent today is 60 minutes, 50 minutes in coordination of care, family meeting about goals of care and palliative care. Subjective Date Seen: 06/30/23 Interval history: Tip Flowers is a 78 year old male past medical history significant for atrial fibrillation on chronic anticoagulation, COPD on chronic steroid, O2 dependent (4L, BiPAP at night), history of hypercapnia, peripheral edema, bradycardia is admitted to the medical floor from the ED for further management symptomatic hyponatremia. Patient lives with his son, Escobar, who called EMS today as son notes he has had increasing weakness and fatigue, decreased oral intake over the last several days. Patient admits to feeling more tired than usual, attempting to drink Ensure but has very little appetite. No report of fevers, chills. Denies headaches or dizziness. Denies chest pain or worsening shortness of breath. Chronically on 3 L at home, using BiPAP at night. No abdominal pain, nausea, vomiting or change in stools. Last BM yesterday or today, patient unsure. No urinary symptoms. In the ED, patient noted to be hyponatremic, 122. Given 3% hypertonic saline. Potassium noted to be 3.0. EKG showed NSR. UA ordered, not yet collected. Patient was previously on furosemide to manage lower extremity edema. June 11 was switched to hydrochlorothiazide 25 b.i.d. for edema. Has subsequently dev eloped hyponatremia. June 28. Today patient is hard to arouse. When he does arouse he is able to carry on a limited conversation. He does not report any concerns or symptoms. He is not able to tell me significant details of what what happened at home. He reports no concerns on his own part. He is sleeping in bed most of the day. He has had little to eat all day long. When taking his medications today he did have an episode of aspiration where he vomited up a small amount of potassium bicarbonate into his BiPAP mask. June 29: Patient is seen with family present. We have a family meeting. Patient has spent almost the entire last day and a half in bed, sleeping, not eating. I asked him about goals of care. He did not want to decide goals of care. When I asked if he felt like giving up he was unable to answer. Address these concerns the family as well. We talked about how challenging his severe COPD and chronic dyspnea are for him. We discussed his quality of life. I offered the option of hospice and comfort focused care versus ongoing medical treatment to prolong his life. Initially unable to make the decision. Later after he visited with his family decision was made to pursue life prolonging measures at this time. I indicated he could changes mind at any point. I did tell him that he would need to eat and to get out of bed and walk if he hope to go home with independent living with his son. He then did eat a moderate amount of food. Exam Narrative: Exam Narrative: Tired appearing but in no distress. Does respond appropriately to questions but gives minimal answers. Hard of hearing. Has some increased work of breathing on nasal cannula oxygen. Otherwise no distress. Respirations with marked decreased breath sounds in all lung mackey. Occasional wheezes. Cardiovascular: S1, S2, regular rate and rhythm. Abdomen: Bowel sounds active. Abdomen is soft without tenderness or mass. Extremities without edema. Const: Vital Signs, click to edit/add: Vital Signs - 24 hr 06/29/23 15:10 06/29/23 15:40 06/29/23 15:40 Temperature 98.3 F Pulse Rate 49 L Pulse Rate [Pulse Oximeter] 56 L 56 L Respiratory Rate 15 15 Blood Pressure [Ri ght Arm] 101/54 L Pulse Oximetry 93 Oxygen Delivery Me thod BiPAP Oxygen Flow Rate 0.5 06/29/23 19:26 06/29/23 23:00 06/29/23 23:00 Temperature 98.6 F 97.5 F L Pulse Rate Pulse Rate [Pulse Oximeter] 58 L 58 L 58 L Respiratory Rate 18 21 21 [facility] 111/72 116/68 Pulse Oximetry 86 L 86 L Oxygen Delivery Me thod BiPAP BiPAP Oxygen Flow Rate 7 7 06/29/23 23:08 06/30/23 03:15 06/30/23 07:00 Temperature 97.5 F L Pulse Rate 54 L Pulse Rate [Pulse Oximeter] 54 L 59 L Respiratory Rate 21 19 Blood Pressure [Pa ght Arm] 95/58 L Pulse Oximetry 90 Oxygen Delivery Me thod BiPAP Oxygen Flow Rate 4 06/30/23 07:00 06/30/23 12:45 Temperature 99.3 F 98.9 F Pulse Rate Pulse Rate [Pulse Oximeter] 65 62 Respiratory Rate 20 18 Blood [facility] 116/70 102/68 Pulse Oximetry 89 89 Oxygen Delivery Me thod Nasal Cannula Nasal Cannula Oxygen Flow Rate 2 2 Documenting provider has reviewed patient's vital signs: yes Labs Labs: Laboratory Results - last 24 hr 06/29/23 06/30/23 13:41 06:02 Sodium 127 L 129 L Potassium 3.8 3.4 L Chloride 83 L 92 L Carbon Dioxide 39 H 33 H Anion Gap 5 L 4 L BUN 29 22 Creatinine 0.8 0.6 Estimated Creat Clear 49.33 47.63 Estimated GFR 89 98 Glucose 125 H 137 H Calcium 9.1 8.8
[2023-06-30] MEDS: OXYCODONE 5 MG TABLET 2.5 MG PO (16:53)
--- NOTE | 2023-06-30 18:54 | PC.NURSE ---
Pt off BiPAP during the day, on 2L n/c hold sats above 89%. Incontinent of bowel and bladder. Refuses up in chair or ambulation.Reposition Q2H or per request. Ate small breakfast, refuses meal remainder of the day. Enjoys apple juice. Pain in back reported, reposition and PRN meds offered, see MAR. Family and pt discussed POC with Dr. Varghese, pt undecided on how he would like to proceed.
--- NOTE | 2023-06-30 23:43 | PC.NURSE ---
Electrical Products Engineer updated MD Couch regarding pt's 0 hypotensive B/P of 91/59. Pt denies dizziness and lightheadedness when asked. Pulse noted to be 86. Electrical Products Engineer encouraged po fluids and pt remains on IV fluids at 75 mLs/hr.
[2023-07-01 03:00] VITALS: BP 103/92; PULSE 88; RESP 16; TEMP 36.1; O2SAT 91
[2023-07-01] MEDS: 5 % DEX/0.9 SOD CHL+KCL 20 mEq 1,000 ML 75 ML IV (05:13)
--- NOTE | 2023-07-01 06:19 | PC.NURSE ---
End of shift note [id number]: Pt alert & oriented to person and able to identify birthday when asked. He refused SCDs and scheduled neb tx last evening. He also requested CHRISTIANO stockings to be removed this shift and refused to have reapplied when asked. Pt continues to have poor po intake though does like applesauce and apple juice. Pills given whole in applesauce. O2 worn at 2 LPM when pt awake and home Bipap used with 2 LPM in order to maintain O2 sats of 88-92%. Pt?s family visited last evening. Staff continue to reposition and toilet pt in bed as he is refusing ambulation. Pt incontinent of bladder. Mepilex protective dressings in place to mid back and sacrum due to blanchable redness and fragile skin present to jose r prominences. IV to L wrist patent with IV fluid running per order. Pt?s B/P noted to be slightly hypotensive at 91/59 with 2300 VS check though pt denied dizziness and lightheadedness when asked. MD Couch updated with no new orders given. Staff continue to encourage po food and fluids as tolerated. Pt remains on tele with sinus arrhythmia noted. Pt refused 1800 meds and scheduled neb tx last evening when approached.
[2023-07-01 06:36] LABS: HCO3 VBG 37 mmol/L (21-28); PCO2 VBG 48 mmHG (40-50); PO2 VBG 61.3 mmHG (25-47); pH VBG 7.497 (7.32-7.43)
[2023-07-01 07:00] VITALS: PULSE 90
[2023-07-01 09:30] VITALS: BP 108/84; PULSE 113; RESP 20; TEMP 37.6; O2SAT 95
[2023-07-01] MEDS: OXYCODONE 5 MG TABLET 2.5 MG PO (09:33)
[2023-07-01] MEDS: carvediloL 6.25 MG TABLET PO ×2 (09:47→20:33)
[2023-07-01] MEDS: predniSONE 20 MG TABLET 40 MG PO (09:47)
[2023-07-01] MEDS: APIXABAN 5 MG TABLET PO ×2 (09:47→20:33)
[2023-07-01] MEDS: POTASSIUM CHLORIDE 10 MEQ CAPSULE ER 20 MEQ PO (09:47)
[2023-07-01] MEDS: IPRAT-ALBUT 0.5-2.5 MG/3 ML NEB 1 NEB IH ×2 (09:48→20:33)
[2023-07-01] MEDS: SODIUM CHLORIDE 1 GM TABLET PO (09:50)
--- NOTE | 2023-07-01 12:19 | P.IMPN_ITS ---
Progress Note: A&P Assessment and plan (1) COPD exacerbation: Problem details: Severe baseline COPD on chronic oxygen and chronic prednisone. On BiPAP at night. Suspect COPD exacerbation at admission. Stress dose steroids. Transition to palliative care. Initiate morphine for symptomatic relief of dyspnea Status: Acute (2) Palliative care encounter: Problem details: Patient is now indicating that he is interested in moving more towards palliative care. He his struggling with the burden of his own dyspnea as well as the burden on his family for his debility. Considering hospice. Status: Acute (3) Debility: Problem details: Acute on chronic. 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 Status: Acute (4) Hyponatremia: Problem details: Hyponatremia likely due to hydrochlorothiazide therapy. Stop hydrochlorothiazide and restart furosemide. At this point he does not appear to be volume overloaded so may not even need furosemide. Continue to address other electrolyte abnormalities. Not clear that his current hyponatremia is causing his apparent failure to thrive. Status: Acute (5) Chronic anticoagulation: Problem details: Continue home Eliquis dosing. Monitor renal function. May need dose adjustment. For AFib. Consider discontinuing anticoagulation if enrolling in hospice Status: Acute (6) Uses bilevel positive airway pressure (BPAP) ventilation at home: Problem details: Trilogy device at night, previous settings: EPAP 8-12 3 L per nasal cannula when not on BiPAP Status: Acute (7) Chronic respiratory failure with hypoxia and hypercapnia: Problem details: Acute on chronic respiratory failure with COVID infection. Patient reports he is close to baseline dyspnea Status: Acute (8) On prednisone therapy: Problem details: Chronic daily prednisone 10 mg daily. Previously has not tolerated attempts to taper. Stress dose steroids. Status: Acute (9) Peripheral edema: Problem details: May need Lasix p.r.n. for edema. Currently no edema. Status: Acute (10) Hypokalemia: Problem details: No further intervention with plan to move towards hospice Status: Acute (11) Opacity of lung on imaging study: Problem details: CXR shows prominent irregular opacities overlying the left mid lung, pleural disease versus developing mass versus overlapping shadows Discussed with son and patient No further evaluation with plan to move towards hospice Status: Acute (12) Altered mental status: Problem details: Patient's mental status is improved today. Appears happy with decision to move to palliative care and possibly hospice Status: Acute (13) Severe chronic obstructive pulmonary disease: Problem details: Gold E. Severe COPD/emphysema. Bilateral scarring Oxygen and prednisone dependent Planning on moving goals of care towards palliation and considering hospice Status: Acute (14) Pulmonary cachexia due to chronic obstructive pulmonary disease: Problem details: Patient reports no appetite. Has lost 7 kg in 14 months. BMI 20 Status: Acute Plan Continue in-hospital for transition to palliative care, monitoring dyspnea, developing appropriate discharge plan. Time Spent With Patient Total time spent: Total time spent today is 60 minutes, 45 minutes in coordination of care discussing with patient and family goals of care and palliative care. Subjective Date Seen: 07/01/23 Interval history: Tip Flowers is a 78 year old male past medical history significant for atrial fibrillation on chronic anticoagulation, COPD on chronic steroid, O2 dependent (4L, BiPAP at night), history of hypercapnia, peripheral edema, bradycardia is admitted to the medical floor from the ED for further management symptomatic hyponatremia. Patient lives with his son, Escobar, who called EMS today as son notes he has had increasing weakness and fatigue, decreased oral intake over the last several days. Patient admits to feeling more tired than usual, attempting to drink Ensure but has very little appetite. No report of fevers, chills. Denies headaches or dizziness. Denies chest pain or worsening shortness of breath. Chronically on 3 L at home, using BiPAP at night. No abdominal pain, nausea, vomiting or change in stools. Last BM yesterday or today, patient unsure. No urinary symptoms. In the ED, patient noted to be hyponatremic, 122. Given 3% hypertonic saline. Potassium noted to be 3.0. EKG showed NSR. UA ordered, not yet collected. Patient was previously on furosemide to manage lower extremity edema. June 11 was switched to hydrochlorothiazide 25 b.i.d. for edema. Has subsequently de veloped hyponatremia. June 28. Today patient is hard to arouse. When he does arouse he is able to carry on a limited conversation. He does not report any concerns or symptoms. He is not able to tell me significant details of what what happened at home. He reports no concerns on his own part. He is sleeping in bed most of the day. He has had little to eat all day long. When taking his medications today he did have an episode of aspiration where he vomited up a small amount of potassium bicarbonate into his BiPAP mask. June 29: Patient is seen with family present. We have a family meeting. Patient has spent almost the entire last day and a half in bed, sleeping, not eating. I asked him about goals of care. He did not want to decide goals of care. When I asked if he felt like giving up he was unable to answer. Address these concerns the family as well. We talked about how challenging his severe COPD and chronic dyspnea are for him. We discussed his quality of life. I offered the option of hospice and comfort focused care versus ongoing medical treatment to prolong his life. Initially unable to make the decision. Later after he visited with his family decision was made to pursue life prolonging measures at this time. I indicated he could changes mind at any point. I did tell him that he would need to eat and to get out of bed and walk if he hope to go home with independent living with his son. He then did eat a moderate amount of food. June 30: Patient again seen with family. He is more alert and interactive today. More talkative. We discuss goals of care and he is now reporting the following: He is interested in moving towards palliative care. He is worried about the struggle of maintaining his independence with his poor health. He is more concerned about the struggle for his family than for himself. He acknowledges that his dyspnea is his most bothersome symptom. He has been refusing to get out of bed with the nurses and not eating much food. He reports no appetite. He is not having any pain. He does report chronic dyspnea which is near baseline. Exam Narrative: Exam Narrative: He is alert and more talkative and interactive than previously seen on the last couple days. Respirations with marked decreased breath sounds and diffuse expiratory wheezing. Cardiovascular: S1, S2, regular rate and rhythm. Abdomen is soft without tenderness or mass. Extremities without edema. Const: Vital Signs, click to edit/add: Vital Signs - 24 hr 06/30/23 12:45 06/30/23 15:00 06/30/23 15:00 Temperature 98.9 F Pulse Rate 76 Pulse Rate [Pulse Oximeter] 62 62 Respiratory Rate 18 18 Blood Pressure [Ri ght Arm] 102/68 Pulse Oximetry 89 Oxygen Delivery Me thod Nasal Cannula Oxygen Flow Rate 2 06/30/23 15:00 06/30/23 19:54 06/30/23 23:00 Temperature 98.6 F 97.5 F L Pulse Rate Pulse Rate [Pulse Oximeter] 76 97 86 Respiratory Rate 20 18 18 Blood Pressure [[facility] Arm] 120/95 H 101/82 91/59 L Pulse Oximetry 91 90 94 Oxygen Delivery Me thod Nasal Cannula Nasal Cannula Nasal Cannula Oxygen Flow Rate 2 2 2 06/30/23 23:00 06/30/23 23:08 07/01/23 03:00 Temperature 96.9 F L Pulse Rate 96 Pulse Rate [Pulse Oximeter] 86 88 Respiratory Rate 18 16 Blood Pressure [[facility] Arm] 103/92 H Pulse Oximetry 91 Oxygen Delivery Me thod BiPAP Oxygen Flow Rate 2 07/01/23 07:00 07/01/23 09:30 07/01/23 09:30 Temperature 99.7 F H Pulse Rate 90 Pulse Rate [Pulse Oximeter] 113 H 113 H Respiratory Rate 20 20 Blood Pressure [[facility] Arm] 108/84 Pulse Oximetry 95 Oxygen Delivery Me thod Nasal Cannula Oxygen Flow Rate 2 Documenting provider has reviewed patient's vital signs: yes Labs Labs: Laboratory Results - last 24 hr 07/01/23 05:44 VBG pH 7.497 H VBG pCO2 48 VBG pO2 61.3 H VBG HCO3 37 H
--- NOTE | 2023-07-01 18:07 | PC.NURSE ---
Pt remains in bed due to refusal to ambulate or move to chair. Poor appetite, agrees to applesauce, vanilla ice cream and apple juice. Pain managed per MAR. Turn/Repo Q2H or per pt request. @L n/c while awake. Family visits on/off through the day.
[2023-07-01] MEDS: MORPHINE 10 MG/0.5 ML ORAL SOLN PO ×3 (19:30→21:53)
[2023-07-01 19:55] VITALS: BP 116/70; PULSE 124; RESP 28; TEMP 36.7; O2SAT 97
[2023-07-01 23:00] VITALS: PULSE 83; RESP 20
[2023-07-02 07:00] VITALS: PULSE 83; RESP 17
[2023-07-02 08:00] VITALS: BP 109/79; PULSE 83; RESP 17; TEMP 36.3; O2SAT 94
[2023-07-02] MEDS: IPRAT-ALBUT 0.5-2.5 MG/3 ML NEB 1 NEB IH ×3 (08:36→20:45)
[2023-07-02] MEDS: predniSONE 20 MG TABLET 30 MG PO (08:36)
[2023-07-02] MEDS: SODIUM CHLORIDE 0.9 % (FLUSH) 10 ML SYRINGE 5 ML IVF ×2 (08:36→20:45)
[2023-07-02] MEDS: APIXABAN 5 MG TABLET PO ×2 (08:36→20:45)
[2023-07-02] MEDS: carvediloL 6.25 MG TABLET PO ×2 (08:36→20:45)
[2023-07-02] MEDS: MORPHINE 10 MG/0.5 ML ORAL SOLN PO ×2 (12:39→22:59)
--- NOTE | 2023-07-02 13:46 | P.IMPN_ITS ---
Progress Note: A&P Assessment and plan (1) COPD exacerbation: Problem details: Severe baseline COPD on chronic oxygen and chronic prednisone. On BiPAP at night. Suspect COPD exacerbation at admission. Stress dose steroids. Transition to palliative care. Initiate morphine for symptomatic relief of dyspnea Status: Acute (2) Palliative care encounter: Problem details: Patient is now indicating that he is interested in moving more towards palliative care. He his struggling with the burden of his own dyspnea as well as the burden on his family for his debility. Considering hospice. Status: Acute (3) Debility: Problem details: Acute on chronic. 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 Status: Acute (4) Hyponatremia: Problem details: Hyponatremia likely due to hydrochlorothiazide therapy. Stop hydrochlorothiazide and restart furosemide. At this point he does not appear to be volume overloaded so may not even need furosemide. Continue to address other electrolyte abnormalities. Not clear that his current hyponatremia is causing his apparent failure to thrive. Status: Acute (5) Chronic anticoagulation: Problem details: Continue home Eliquis dosing. Monitor renal function. May need dose adjustment. For AFib. Consider discontinuing anticoagulation if enrolling in hospice Status: Acute (6) Uses bilevel positive airway pressure (BPAP) ventilation at home: Problem details: Trilogy device at night, previous settings: EPAP 8-12 3 L per nasal cannula when not on BiPAP Status: Acute (7) Chronic respiratory failure with hypoxia and hypercapnia: Problem details: Acute on chronic respiratory failure with COVID infection. Patient reports he is close to baseline dyspnea Status: Acute (8) On prednisone therapy: Problem details: Chronic daily prednisone 10 mg daily. Previously has not tolerated attempts to taper. Stress dose steroids. Status: Acute (9) Peripheral edema: Problem details: Currently no edema. May not need furosemide or hydrochlorothiazide. Status: Acute (10) Hypokalemia: Problem details: No further intervention with plan to move towards hospice Status: Acute (11) Opacity of lung on imaging study: Problem details: CXR shows prominent irregular opacities overlying the left mid lung, pleural disease versus developing mass versus overlapping shadows Discussed with son and patient No further evaluation with plan to move towards hospice Status: Acute (12) Altered mental status: Problem details: Patient's mental status is improved today. Appears happy with decision to move to palliative care and possibly hospice Status: Acute (13) Severe chronic obstructive pulmonary disease: Problem details: Gold E. Severe COPD/emphysema. Bilateral scarring Oxygen and prednisone dependent Planning on moving goals of care towards palliation and considering hospice Status: Acute (14) Pulmonary cachexia due to chronic obstructive pulmonary disease: Problem details: Patient reports no appetite. Has lost 7 kg in 14 months. BMI 20 Status: Acute Plan Continue in-hospital for management of hypoxic respiratory failure and pending safe discharge plan. Time Spent With Patient Total time spent: Total time spent today is 40 minutes, 30 minutes in coordination of care discussed with patient and family ongoing evaluation management of respiratory failure and palliative care Subjective Date Seen: 07/02/23 Interval history: Tip Flowers is a 78 year old male past medical history significant for atrial fibrillation on chronic anticoagulation, COPD on chronic steroid, O2 dependent (4L, BiPAP at night), history of hypercapnia, peripheral edema, bradycardia is admitted to the medical floor from the ED for further management symptomatic hyponatremia. Patient lives with his son, Escobar, who called EMS today as son notes he has had increasing weakness and fatigue, decreased oral intake over the last several days. Patient admits to feeling more tired than usual, attempting to drink Ensure but has very little appetite. No report of fevers, chills. Denies headaches or dizziness. Denies chest pain or worsening shortness of breath. Chronically on 3 L at home, using BiPAP at night. No abdominal pain, nausea, vomiting or change in stools. Last BM yesterday or today, patient unsure. No urinary symptoms. In the ED, patient noted to be hyponatremic, 122. Given 3% hypertonic saline. Potassium noted to be 3.0. EKG showed NSR. UA ordered, not yet collected. Patient was previously on furosemide to manage lower extremity edema. June 11 was switched to hydrochlorothiazide 25 b.i.d. for edema. Has subsequently developed hyponatremia. June 28. Today patient is hard to arouse. When he does arouse he is able to carry on a limited conversation. He does not report any concerns or symptoms. He is not able to tell me significant details of what what happened at home. He reports no concerns on his own part. He is sleeping in bed most of the day. He has had little to eat all day long. When taking his medications today he did have an episode of aspiration where he vomited up a small amount of potassium bicarbonate into his BiPAP mask. June 29: Patient is seen with family present. We have a family meeting. Patient has spent almost the entire last day and a half in bed, sleeping, not eating. I asked him about goals of care. He did not want to decide goals of care. When I asked if he felt like giving up he was unable to answer. Address these concerns the family as well. We talked about how challenging his severe COPD and chronic dyspnea are for him. We discussed his quality of life. I offered the option of hospice and comfort focused care versus ongoing medical treatment to prolong his life. Initially unable to make the decision. Later after he visited with his family decision was made to pursue life prolonging measures at this time. I indicated he could changes mind at any point. I did tell him that he would need to eat and to get out of bed and walk if he hope to go home with independent living with his son. He then did eat a moderate amount of food. June 30: Patient again seen with family. He is more alert and interactive to day. More talkative. We discuss goals of care and he is now reporting the following: He is interested in moving towards palliative care. He is worried about the struggle of maintaining his independence with his poor health. He is more concerned about the struggle for his family than for himself. He acknowledges that his dyspnea is his most bothersome symptom. He has been refusing to get out of bed with the nurses and not eating much food. He reports no appetite. He is not having any pain. He does report chronic dyspnea which is near baseline. July 01: Patient is seen with his ex-. He is not been out of bed in the last day. He has had some to eat last evening and this morning. He reports poor appetite but no nausea or abdominal pain. He has primarily been in bed with the BiPAP on as his breathing is more comfortable with the BiPAP on. He did receive a dose of Roxanol last evening and he is unsure whether that was beneficial for his breathing. Exam Narrative: Exam Narrative: He is alert and appears in no distress. Continues to be more verbal and interactive. Respirations with marked decreased breath sounds. Cardiovascular: Distant S1-S2. Abdomen: Bowel sounds active. Abdomen is soft without tenderness. Extremities without edema. Const: Vital Signs, click to edit/add: Vital Signs - 24 hr 07/01/23 19:55 07/01/23 23:00 07/02/23 07:00 Temperature 98.0 F Pulse Rate [Pulse Oximeter] 124 H 83 83 Respiratory Rate 28 H 20 17 Blood Pressure [Ri t Arm] 116/70 Pulse Oximetry 97 Oxygen Delivery Me thod Nasal Cannula Oxygen Flow Rate 2 07/02/23 08:00 Temperature 97.3 F L Pulse Rate [Pulse Oximeter] 83 Respiratory Rate 17 Blood Pressure [Ri t Arm] 109/79 Pulse Oximetry 94 Oxygen Delivery Me thod BiPAP Oxygen Flow Rate 2 Documenting provider has reviewed patient's vital signs: yes
[2023-07-02 15:00] VITALS: PULSE 79; RESP 17
--- NOTE | 2023-07-02 15:24 | PC.NURSE ---
End of Shift: Patient pleasant and cooperative. Afebrile. C/o pain 5/10 with coughing. PRN Morphine given x1. Declined to get out of bed, frequent turn and reposition. Mepilex dressing to bony prominence on back and coccyx for protection. Tolerating apple juice and applesauce/crackers with no nausea. Using home BiPAP most of the morning and then 2L NC when awake. Continent of urine this shift using urinal.
--- NOTE | 2023-07-02 16:04 | RESP.RT ---
Patient on/off Home BiPAP, VOCSN in NIV mode with full face mask interface. patient total rate 22/minute, MAP 12 cm pressure, PEEP 4 cm pressure, average vt 350-400 ml, Minute ventilation 10 Lpm. Oxygen bleed in 2 Lpm at ventilator. When off BiPAP patient on NC 2 Lpm.
[2023-07-02 20:00] VITALS: BP 109/89; PULSE 99; RESP 16; TEMP 36.2; O2SAT 95
--- NOTE | 2023-07-02 21:51 | PC.NURSE ---
End of Shift: Pt pleasant and cooperative throughout shift. Diminished appetite. Son at bedside throughout most of shift. Pt comfortable in bed, turned and repositioned PRN. Pt continent with bladder using urinal in bed. No BM throughout shift. VSS. 2L O2 NC. Did not wish to use bipap.
[2023-07-02 23:00] VITALS: PULSE 99; RESP 20
[2023-07-03] MEDS: MORPHINE 10 MG/0.5 ML ORAL SOLN PO ×6 (00:40→17:39)
[2023-07-03] MEDS: IPRAT-ALBUT 0.5-2.5 MG/3 ML NEB 1 NEB IH ×4 (04:09→21:41)
--- NOTE | 2023-07-03 06:23 | PC.NURSE ---
End of shift report [id number]: Pleasant and cooperative with cares. Pain to back well managed with current regimen. Patient refusing to use Bipap until 0200 when patient requested to use due to increased SOB, mild improvement with use of bipap. Patient placed call light on reporting increase shortness of breath and coughing, requested to stop bipap and resume nasal cannula as he isn't able to cough well with mask on. Placed on 2L oxygen via NC, patient did pursed lip breathing. Continued to report dyspnea, nebulizer administered and morphine utilized for dyspnea. Patient reporting moderate relief of dyspnea after medications and nebulizer, SOB only reported with movement. Patient has moist sounding cough, unable to produce sputum with cough. Lung sounds diminished with upper airway wheezing. Patient declined to restart bipap.
[2023-07-03 07:49] VITALS: PULSE 111; RESP 18
[2023-07-03 08:00] VITALS: BP 107/75; PULSE 111; RESP 18; TEMP 37.2; O2SAT 96
[2023-07-03] MEDS: predniSONE 20 MG TABLET PO (08:03)
[2023-07-03] MEDS: carvediloL 6.25 MG TABLET PO ×2 (08:06→21:41)
[2023-07-03] MEDS: APIXABAN 5 MG TABLET PO ×2 (08:06→21:40)
--- NOTE | 2023-07-03 11:46 | PC.SOCIAL ---
Discharge planning- Per therapy recommendation, pt will need short-term rehab stay. Per MD, pt will likely be ready for discharge tomorrow. Met with pt and pt's sister (KESHAWN Diaz) to discuss therapy recommendations. Pt was aware and is agreeable to short-term rehab stay prior to returning to [facility]. Pt preference is [facility] and [facility]. Contacted the following SNF's for placement. 1. [facility]- Phone call to Harpreet Harper in admissions at [phone]. There are no openings this week. 2. [facility]- Phone call to Joyce in admissions at [phone]. They will assess for placement. Secure e-mailed referral to Joyce Gonzalez in admissions. Secure e-mail to Sheila Bird ([facility] ticketer) to provide update on pt. Social work will continue to follow up as needed.
--- NOTE | 2023-07-03 11:53 | PC.SOCIAL ---
Addendum entered by JENNY Ahn 07/03/23 14:13: Pt's son chose [facility]. Pt's son has been in contact with [facility]. Received a phone call from Celia at [facility] ([phone]). Celia requests referral be sent. Faxed referral to [phone]. [facility] will order hospital bed and can have nurse admit pt to hospice tomorrow at 10:00 am. Pt will discharge from [facility] tomorrow at 9:00 am and transport via non-emergency ambulance to his home. Charge nurse will schedule EMS transport. Update provided to pt's son. Original Note: Discharge planning- Per MD, pt will need hospice upon discharge. Met with pt's son Escobar to discuss discharge plans. Discussed home with hospice vs. hospice in a SNF. Discussed financial responsibility in SNF with pt's son. Pt's son would like to take pt home with hospice. Provided pt's son with a list of hospice agencies to chose an agency. Pt's son would like to reach out to a few of the hospice agencies before making a decision. Provided pt's son with lead technical writer's phone number to call with any questions or with the hospice agency decision. Discussed DME at home and pt's son informs pt will need a hospital bed at home. Social work will continue to follow up as needed.
--- NOTE | 2023-07-03 14:54 | P.IMPN_ITS ---
Progress Note: A&P Assessment and plan (1) COPD exacerbation: Problem details: Severe baseline COPD on chronic oxygen and chronic prednisone. On BiPAP at night. Suspect COPD exacerbation at admission. Stress dose steroids. Transition to palliative care. Initiate morphine for symptomatic relief of dyspnea Status: Acute (2) Palliative care encounter: Problem details: Patient is now indicating that he is interested in moving more towards palliative care. He his struggling with the burden of his own dyspnea as well as the burden on his family for his debility. Planning discharge to home with hospice. Status: Acute (3) Debility: Problem details: Acute on chronic. 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 Status: Acute (4) Hyponatremia: Problem details: Hyponatremia likely due to hydrochlorothiazide therapy. Stop hydrochlorothiazide. At this point he does not appear to be volume overloaded so may not even need furosemide. Not clear that his current hyponatremia is causing his apparent failure to thrive. Status: Acute (5) Chronic anticoagulation: Problem details: Continue home Eliquis dosing. Monitor renal function. May need dose adjustment. For AFib. Consider discontinuing anticoagulation if enrolling in hospice Status: Acute (6) Uses bilevel positive airway pressure (BPAP) ventilation at home: Problem details: Trilogy device at night, previous settings: EPAP 8-12 3 L per nasal cannula when not on BiPAP Status: Acute (7) Chronic respiratory failure with hypoxia and hypercapnia: Problem details: Acute on chronic respiratory failure with COVID infection. Patient reports he is close to baseline dyspnea Status: Acute (8) On prednisone therapy: Problem details: Chronic daily prednisone 10 mg daily. Previously has not tolerated attempts to taper. Stress dose steroids. Status: Acute (9) Peripheral edema: Problem details: Currently no edema. May not need furosemide or hydrochlorothiazide. Status: Acute (10) Hypokalemia: Problem details: No further intervention with plan to move towards hospice Status: Acute (11) Opacity of lung on imaging study: Problem details: CXR shows prominent irregular opacities overlying the left mid lung, pleural disease versus developing mass versus overlapping shadows Discussed with son and patient No further evaluation with plan to move towards hospice Status: Acute (12) Altered mental status: Problem details: Patient's mental status is improved. Appears happy with decision to move to palliative care and possibly hospice Status: Acute (13) Severe chronic obstructive pulmonary disease: Problem details: Gold E. Severe COPD/emphysema. Bilateral scarring Oxygen and prednisone dependent Planning on moving goals of care towards palliation and considering hospice Status: Acute (14) Pulmonary cachexia due to chronic obstructive pulmonary disease: Problem details: Patient reports no appetite. Has lost 7 kg in 14 months. BMI 20 Status: Acute Plan Continue in hospital pending safe discharge plan, probably home with hospice. Time Spent With Patient Total time spent: Total time spent today is 45 minutes, 35 minutes in coordination of care and discussion with patient and his son about end of life care/palliative care/hospice/disposition Subjective Date Seen: 07/03/23 Interval history: Tip Flowers is a 78 year old male past medical history significant for atrial fibrillation on chronic anticoagulation, COPD on chronic steroid, O2 dependent (4L, BiPAP at night), history of hypercapnia, peripheral edema, bradycardia is admitted to the medical floor from the ED for further management symptomatic hyponatremia. Patient lives with his son, Escobar, who called EMS today as son notes he has had increasing weakness and fatigue, decreased oral intake over the last several days. Patient admits to feeling more tired than usual, attempting to drink Ensure but has very little appetite. No report of fevers, chills. Denies headaches or dizziness. Denies chest pain or worsening shortness of breath. Chronically on 3 L at home, using BiPAP at night. No abdominal pain, nausea, vomiting or change in stools. Last BM yesterday or today, patient unsure. No urinary symptoms. In the ED, patient noted to be hyponatremic, 122. Given 3% hypertonic saline. Potassium noted to be 3.0. EKG showed NSR. UA ordered, not yet collected. Patient was previously on furosemide to manage lower extremity edema. June 11 was switched to hydrochlorothiazide 25 b.i.d. for edema. Has subsequently developed hyponatremia. June 28. Today patient is hard to arouse. When he does arouse he is able to carry on a limited conversation. He does not report any concerns or symptoms. He is not able to tell me significant details of what what happened at home. He reports no concerns on his own part. He is sleeping in bed most of the day. He has had little to eat all day long. When taking his medications today he did have an episode of aspiration where he vomited up a small amount of potassium bicarbonate into his BiPAP mask. June 29: Patient is seen with family present. We have a family meeting. Patient has spent almost the entire last day and a half in bed, sleeping, not eating. I asked him about goals of care. He did not want to decide goals of care. When I asked if he felt like giving up he was unable to answer. Address these concerns the family as well. We talked about how challenging his severe COPD and chronic dyspnea are for him. We discussed his quality of life. I offered the option of hospice and comfort focused care versus ongoing medical treatment to prolong his life. Initially unable to make the decision. Later after he visited with his family decision was made to pursue life prolonging measures at this time. I indicated he could changes mind at any point. I did tell him that he would need to eat and to get out of bed and walk if he hope to go home with independent living with his son. He then did eat a moderate amount of food. June 30: Patient again seen with family. He is more alert and interactive today. More talkative. We discuss goals of care and he is now reporting the following: He is interested in moving towards palliative care. He is worried about the struggle of maintaining his independence with his poor health. He is more concerned about the struggle for his family than for himself. He acknowledges that his dyspnea is his most bothersome symptom. He has been refusing to get out of bed with the nurses and not eating much food. He reports no appetite. He is not having any pain. He does report chronic dyspnea which is near baseline. July 01: Patient is seen with his ex-. He is not been out of bed in the last day. He has had some to eat last evening and this morning. He reports poor appetite but no nausea or abdominal pain. He has primarily been in bed with the BiPAP on as his breathing is more comfortable with the BiPAP on. He did receive a dose of Roxanol last evening and he is unsure whether that was beneficial for his breathing. July 02: Patient seen with his son. Today for the 1st time he has been out of bed in the chair. He did stand to transfer to the commode as well. He reports no other concerns. Breathing is unlabored on oxygen by nasal cannula. Previously was primarily spending the day on BiPAP. Exam Narrative: Exam Narrative: He is alert in no distress. Breathing is unlabored. Marked decreased breath so unds all lung mackey. No edema. Const: Vital Signs, click to edit/add: Vital Signs - 24 hr 07/02/23 15:00 07/02/23 20:00 07/02/23 23:00 Temperature 97.2 F L Pulse Rate [Pulse Oximeter] 79 99 99 Respiratory Rate 17 16 20 Blood Pressure [Ri ght Arm] 109/89 Pulse Oximetry 95 Oxygen Delivery Me thod Nasal Cannula BiPA P Oxygen Flow Rate 2 07/03/23 07:49 07/03/23 08:00 Temperature 98.9 F Pulse Rate [Pulse Oximeter] 111 H 111 H Respiratory Rate 18 18 Blood Pressure [Ri ght Arm] 107/75 Pulse Oximetry 96 Oxygen Delivery Me thod Nasal Cannula Oxygen Flow Rate 2 Documenting provider has reviewed patient's vital signs: yes
[2023-07-03 15:00] VITALS: RESP 18
[2023-07-03] MEDS: SODIUM CHLORIDE 0.9 % (FLUSH) 10 ML SYRINGE 5 ML IVF ×2 (19:13→21:41)
--- NOTE | 2023-07-03 19:15 | PC.NURSE ---
Nursing Care Hours: [phone] Pt this shift oriented x4. After talking to pt and pt adult son about risk factors and concerns about being home with weakness, pt agreed to try and sit up in bed. Pt able to transfer independently in bed. SB assist to BSC and recliner. Continent of bowel and bladder. No c/o pain. Dyspnea treated with PO morphine, see MAR and scheduled NEBs. Drank ensure x1 and 50% of dinner tray.
[2023-07-03 20:00] VITALS: BP 110/60; PULSE 76; RESP 18; TEMP 36.5; O2SAT 94
[2023-07-03 23:00] VITALS: RESP 18
--- NOTE | 2023-07-04 06:31 | PC.NURSE ---
Pt is alert and oriented to self and place but has difficulties with time. Afebrile. Pt denies pain, chest pain, and N/V. Pt refused BiPap overnight, but is on 2L of O2 via nasal cannula O2 stats ranging between, 87-92%.? Pt is up SBA, voiding, and tolerating a regular diet. Pt slept intermittently throughout night.?
[2023-07-04 07:00] VITALS: PULSE 76; RESP 18
[2023-07-04] MEDS: predniSONE 10 MG TABLET PO (09:13)
[2023-07-04] MEDS: IPRAT-ALBUT 0.5-2.5 MG/3 ML NEB 1 NEB IH (09:13)
[2023-07-04] MEDS: APIXABAN 5 MG TABLET PO (09:14)
[2023-07-04] MEDS: carvediloL 6.25 MG TABLET PO (09:14)
--- NOTE | 2023-07-04 10:12 | PC.NURSE ---
Discharge: Pt. alert and oriented to self and place but has difficulties with time. Afebrile. Pt denies pain, chest pain. Patient on 2L nasal cannula O2 stats ranging between, 88-92%. Patient discharged today to home to meet with Hospice via non-emergent ambulance at 0935. Patients IV removed intact. Patients belongings sheet and discharge sheet signed. Paperwork sent with EMS personnel.
--- NOTE | 2023-07-04 11:05 | PC.SOCIAL ---
Discharge planning- EMS delay for transport today. Provided update to pt's son and Celia at [facility] ([phone]). Charge nurse faxed discharge orders to [facility] at [phone]. Will follow up as needed.
--- NOTE | 2023-07-04 14:02 | PM.DS1 ---
DS: Providers Provider Date Seen: 07/04/23 Date of admission: 06/29/23 16:29 Primary care physician: Isidro Siegel MD Admitting Clinician: Aimee Kaur MD Attending Physician on discharge: Melchor Varghese MD Date of Discharge: 07/04/23 DS: Diagnosis Discharge Diagnosis (1) COPD exacerbation: Status: Acute Problem details: Severe baseline COPD on chronic oxygen and chronic prednisone. On BiPAP at night. Suspect COPD exacerbation at admission. Stress dose steroids. Transition to palliative care. Initiate morphine for symptomatic relief of dyspnea (2) Chronic respiratory failure with hypoxia and hypercapnia: Status: Acute Problem details: Acute on chronic respiratory failure with COVID infection. Patient reports he is close to baseline dyspnea (3) Pulmonary cachexia due to chronic obstructive pulmonary disease: Status: Acute Problem details: Patient reports no appetite. Has lost 7 kg in 14 months. BMI 20 (4) Altered mental status: Status: Acute Problem details: Patient's mental status is improved. Appears happy with decision to move to palliative care and possibly hospice (5) Palliative care encounter: Status: Acute Problem details: Patient is now indicating that he is interested in moving more towards palliative care. He his struggling with the burden of his own dyspnea as well as the burden on his family for his debility. Planning discharge to home with hospice. (6) Opacity of lung on imaging study: Status: Acute Problem details: CXR shows prominent irregular opacities overlying the left mid lung, pleural disease versus developing mass versus overlapping shadows Discussed with son and patient No further evaluation with plan to move towards hospice (7) Hypokalemia: Status: Acute Problem details: No further intervention with plan to move towards hospice (8) Hyponatremia: Status: Acute Problem details: Hyponatremia likely due to hydrochlorothiazide therapy. Stop hydrochlorothiazide. At this point he does not appear to be volume overloaded so may not even need furosemide. Not clear that his current hyponatremia is causing his apparent failure to thrive. (9) Debility: Status: Acute Problem details: Acute on chronic. 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 (10) Chronic anticoagulation: Status: Acute Problem details: Continue home Eliquis dosing. Monitor renal function. May need dose adjustment. For AFib. Consider discontinuing anticoagulation if enrolling in hospice (11) Uses bilevel positive airway pressure (BPAP) ventilation at home: Status: Acute Problem details: Trilogy device at night, previous settings: EPAP 8-12 3 L per nasal cannula when not on BiPAP (12) Atrial fibrillation: Status: Acute Problem details: NSR in ED, troponin 0.02 (previously 0.01) Continue home dose carvedilol and apixaban Digoxin previously discontinued secondary to episodes of bradycardia Scheduled for outpatient echocardiogram on 07/10/2023 Limited Echocardiogram performed 05/2020 at [facility] 1. Normal LV size, normal global systolic function with an estimated EF of 65 - 70%. 2. Technically difficult exam. 3. Technically limited exam. Chamber Sizes and Function Normal left ventricular size, normal global systolic function with an estimated EF of 65 - 70%. (13) Severe chronic obstructive pulmonary disease: Status: Acute Problem details: Gold E. Severe COPD/emphysema. Bilateral scarring Oxygen and prednisone dependent Planning on moving goals of care towards palliation and considering hospice DS: Summary Hospital Course Hospital Course: Tip Flowers is a 78 year old male past medical history significant for atrial fibrillation on chronic anticoagulation, COPD on chronic steroid, O2 dependent (4L, BiPAP at night), history of hypercapnia, peripheral edema, bradycardia is admitted to the medical floor from the ED for further management symptomatic hyponatremia. Patient lives with his son, Escobar, who called EMS today as son notes he has had increasing weakness and fatigue, decreased oral intake over the last several days. Patient admits to feeling more tired than usual, attempting to drink Ensure but has very little appetite. No report of fevers, chills. Denies headaches or dizziness. Denies chest pain or worsening shortness of breath. Chronically on 3 L at home, using BiPAP at night. No abdominal pain, nausea, vomiting or change in stools. Last BM yesterday or today, patient unsure. No urinary symptoms. In the ED, patient noted to be hyponatremic, 122. Given 3% hypertonic saline. Potassium noted to be 3.0. EKG showed NSR. UA ordered, not yet collected. Patient was previously on furosemide to manage lower extremity edema. June 11 was switched to hydrochlorothiazide 25 b.i.d. for edema. Has subsequently developed hyponatremia. During hospital stay patient was treated for COPD exacerbation with systemic steroids, treated for hyponatremia which gradually increased during his hospital stay, monitored his altered mental status which improved during his hospital stay. He was mostly resisting interventions to improve his nutrition and strength. With ongoing conversation the decision was made that he would like goals of care to be comfort focused/palliative care. At the time of discharge she will be discharged to home with hospice. Status at Discharge Functional status at discharge: uses cane/walker Overall status at discharge: other (Patient has progressive weakness, dyspnea, weight loss. Discharge to hospice) Time Spent with Patient Time attestation: Total time spent providing and/or coordinating discharge services: 40 minutes Time spent: Greater than 30 minutes Exam Narrative: Exam Narrative: He is alert and appears in no distress. Mood and affect are bright. He is more conversational today. Respirations with decreased breath sounds for all lung mackey. Occasional wheezes. On supplemental oxygen is not in any respiratory distress. Cardiovascular: S1, S2, relatively regular rhythm. He is cachectic in appearance. No edema. Const: Vital Signs, click to edit/add: Vital Signs - 24 hr 07/03/23 15:00 07/03/23 20:00 07/03/23 23:00 Temperature 97.7 F Pulse Rate [Pulse Oximeter] 76 Respiratory Rate 18 18 18 Blood Pressure [Ri ght Arm] 110/60 Pulse Oximetry 94 Oxygen Delivery Me thod Room Air 07/04/23 07:00 Temperature Pulse Rate [Pulse Oximeter] 76 Respiratory Rate 18 Blood Pressure [Ri ght Arm] Pulse Oximetry Oxygen Delivery Me thod Documenting provider has reviewed patient's vital signs: yes DS: Data Data Completed and Pending Completed studies during hospitalization: Procedures Assistance with Respiratory Ventilation, Less than 24 Consecutive Hours, Continuous Positive Airway Pressure (05/01/22) Introduction of Other Gas into Respiratory Tract, Via Natural or Artificial Opening (01/30/23) Introduction of Remdesivir Anti-infective into Peripheral Vein, Percutaneous Approach, [employer] 5 (01/30/23) Discharge Plan Discharge Disposition: Xfer Home- (Hospice) Date of Admission: 06/29/23 16:29 Attending Provider on Discharge: Bertram Varghese Primary Care Provider: Isidro Siegel Discharge Medications: New acetaminophen 325 mg Tablet 650 mg PO Q6H PRNQty: 100 0RF sennosides-docusate sodium [Stool Softener-Laxative] 8.6-50 mg Tablet 1 tab PO BID PRNQty: 30 0RF morphine concentrate 10 mg/0.5 mL Syringe 5 - 10 mg PO Q1H PRNQty: 30 0RF Continued carvedilol 6.25 mg tablet 6.25 mg PO BID Patient Comments: Take 1 Tablet (6.25 mg) by mouth 2 times daily. Eliquis 5 mg tablet 5 mg PO BID Patient Comments: Take 1 Tablet (5 mg) by mouth 2 times daily. sodium chloride 1,000 mg Tablet,Soluble 1,000 mg PO BIDWM Qty: 100 0RF ipratropium-albuterol 0.5 mg-3 mg(2.5 mg base)/3 mL solution for nebulization 3 ml INHALATION QID Discontinued furosemide 40 mg tablet 40 mg PO BID Hold Instructions: stopped as of 2 days ago hydrochlorothiazide 25 mg tablet 25 mg PO BID No Action prednisone 10 mg tablet 10 mg PO DAILY Patient Comments: Take 1 Tablet (10 mg) by mouth once daily with a meal. Discharge Orders: Discharge Order (Routine); Ordered 07/04/23 Ordered By: Bertram Varghese Additional Instructions: Consider discontinuing Eliquis Activity Level: Activity as Tolerated Discharge Diet: Regular Follow Up Appointments: Isidro Siegel MD [Primary Care Provider] - Forms: MyHealth Info Instructions Discharge Comments: Refer to hospice.
== END 2023-07-04 09:35 | disposition hospice, home (50) | DRG 191 ==
LOC: ED 15:46 → MEDSURG 17:35
PROVIDERS: Family Medicine; Physician Assistant; Admitting Provider Family Medicine; Emergency Provider Emergency Medicine; PCP Family Medicine; Visit Provider Family Medicine
DX: J44.1 Chronic obstructive pulmonary disease with (acute) exacerbation (principal); E87.1 Hypo-osmolality and hyponatremia; J96.12 Chronic respiratory failure with hypercapnia; J96.11 Chronic respiratory failure with hypoxia; E88.A Wasting disease (syndrome) due to underlying condition; E87.6 Hypokalemia; Z99.81 Dependence on supplemental oxygen; Z99.89 Dependence on other enabling machines and devices; Z79.52 Long term (current) use of systemic steroids; I48.91 Unspecified atrial fibrillation; Z79.01 Long term (current) use of anticoagulants; Z68.20 Body mass index [BMI] 20.0-20.9, adult; R53.1 Weakness; Z79.51 Long term (current) use of inhaled steroids; Z87.891 Personal history of nicotine dependence; R60.0 Localized edema; R91.8 Other nonspecific abnormal finding of lung field
CPT/HCPCS: 36415; 70450; 71046; 80048; 80076; 81001; 82803; 83605; 83735; 84295; 84443; 84484; 85025; 85027; 85610; 86140; 87631; 93005; 94640; 97162; 97166; 97530; 97535; 99284; 99285; G0378; A9270; J1720; J7030; J7131; J7512

== ENCOUNTER 2023-07-04 09:30 | Outpatient (CLI) | payer MEDICARE, SELFPAY ==
--- OUTSIDE RECORDS SUMMARY | 2023-07-10 21:59 | XMS_ITS | Referral Summary ---
Author Organization [place] Address [address] [place] [address]. [place] [address] Care Team Providers Care Batter Depositor Name Role Phone [facility] Primary Care Provider Allergies No known active allergies Social History Tobacco Use Types Packs/Day Years Used Date Smoking Tobacco: Never Assessed Sex and Gender Information Value Date Recorded Sex Assigned at Not on file Gender Identity Not on file Sexual Orientation Not on file Last Filed Vital Signs Vital Sign Reading Time Taken Comments Blood Pressure 102/70 12/16/2017 1:15 AM SKEIN BLEACHER Pulse 109 12/15/2017 9:49 PM SKEIN BLEACHER Temperature 37.2 ??C (99 ??F) 12/16/2017 1:24 AM SKEIN BLEACHER Respiratory Rate 22 12/15/2017 11:41 PM SKEIN BLEACHER Oxygen Saturation 93% 12/16/2017 1:15 AM SKEIN BLEACHER Inhaled Oxygen Concentration - - Weight - - Height - - Body Mass Index - - Plan of Treatment Not on file Care Teams Batter Depositor Relationship Specialty Start Date End Date [facility], [facility] [address] [place] [address] PCP - General 12/15/17
--- OUTSIDE RECORDS SUMMARY | 2023-07-10 21:59 | XMS_ITS | Clinical Summary ---
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 (HC) Indication: COPD; [...] 11/30/2022 Active carvediloL (COREG) 6.25 mg tabletIndications:At [facility], chronic (HC) Take 1 Tablet [...] 03/28/2023 Active apixaban (Eliquis) 5 mg tabletIndications:At [facility], chronic (HC) Take 1 Tablet [...] Date Type Department Care Team Description 06/29/2023 Orders Only [facility] Scanner 1 scan: (1-Ord) [facility], CT HEAD/BRAIN WO CON, 06/29/2023 06/29/2023 Telephone [facility] [address] [place] [address] Isidro Siegel MD Results 06/28/2023 9:30 AM CDT Orders Only [facility] [address] [place] [address] Lab 06/28/2023 Orders Only [facility] Scanner 1 scan: (1-Ord) [facility], CHEST, 06/28/2023 06/28/2023 Travel 06/26/2023 Orders Only [address] [address] Nuno Oreilly MD <No scans attached> 06/26/[address] [address] Nuno Oreilly MD Follow Up 06/26/[address] [address] Nuno Oreilly MD Refill Request (hydroCHLOROthiazide 25 mg tablet ) 06/13/2023 Telephone [facility] [address] [place] [address] Navin Vazquez MD Results 06/13/2023 Orders Only [address] [address] Nuno Oreilly MD <No scans attached> 06/12/2023 1:20 PM CDT Office Visit [address] [address] Nuno Oreilly MD Leg Swelling 06/12/2023 Travel 06/12/2023 Nurse Triage [facility] [address] [place] [address] Isidro Siegel MD Leg Swelling 05/03/2023 Refill [facility] [address] [place] [address] Isidro Siegel MD Refill Request (Eliquis) from Last 3 Months Immunizations Name Administration Dates Next Due COVID-19 Vaccine Spikevax (M oderna 50mcg/0.5mL) 12YO+ 3185-6180 Formula PF 01/02/2023 COVID-19 vaccine (Puzl-Bio NTech 30mcg/0.3mL) 12YO+ BIVALENT PF, MDV 01/11/2022 COVID-19 vaccine (LovliBio NTech 30mcg/0.3mL) PF, MDV 04/13/2020,03/23/2020 Influenza A [...] 166 cm (5' 5.35) 01/02/2023 8:31 AM COLLAR SETTER OVERLOCK Body Mass Index 22.88 01/02/2023 8:31 AM COLLAR SETTER OVERLOCK Plan of Treatment Health Maintenance Due Date Last Done Comments [...] 10/01/2014, 07/06/2006 Medical Devices Implanted Type Area Cake Cutter Machine Device Identifier Shelf Expiration Date Model / Serial / Lot Head Hip Od28mm +4 01/18 [employer] Cr - [id number] Implanted:Qty: 1 on 05/14/2020 by Luigi Durand MD at [facility] Right: Hip [employer] 10/28/2029 [id number] / / [id number] Implnt Porp 2mm Centered Titan [id number] - [id number] Implanted:Qty: 1 on 02/17/2013 by Curry Mendez MD at [facility] Right: Ear [employer] 11/04/2022 [id number] / / [id number] Liner Hip Id28 Od50 Tandem Cocr Uhmwpe [id number] - [id number] Implanted:Qty: 1 on 05/14/2020 by Luigi Durand MD at Right: Hip [employer] 03/22/2029 [id number] / / [id number] Standard Offset Anthology Porous Plus Beltran Femoral Component Implanted:Qty: 1 on 05/14/2020 by Luigi Durand MD at Right: Hip 10/20/2029 [id number] / / [id number] Description:SZE8 STANDARD OF FSET ANTHOLOGY POROUS PLUS BELTRAN FEMORAL COMPONENT Procedures Procedure Name Priority Date/Time Associated Diagnosis Comments SCAN-CT INTERPRETATION 12:00 AM CDT BASIC METABOLIC PANEL Routine 06/28/2023 9:36 AM CDT Bilateral lower extremity edema SCAN-RADIOLOGY REPORT 06/28/2023 12:00 AM CDT CBC WITH AUTO DIFFERENTIAL Routine 06/12/2023 1:57 PM CDT Edema of left lower extremity CBC WITH AUTO DIFFERENTIAL Routine 06/12/2023 1:57 PM CDT Edema of left lower extremity COMP METABOLIC PANEL Routine 06/12/2023 1:57 PM CDT Edema of left lower extremity CT CHEST PE STUDY Routine 12/24/2017 11: 51 AM COLLAR SETTER OVERLOCK from Last 3 Months or Most Recently Relevant to Health Maintenance Results * SCAN-CT INTERPRETATION (06/29/2023 12:00 AM CDT) Anatomical Region Laterality Modality Other Scanner OTHER * (ABNORMAL) BASIC METABOLIC PANEL (06/28/2023 9:36 AM CDT) SODIUM 128(L) 136 - 145 mmol/L 06/28/2023 6:54 PM CDT [facility] POTASSIUM 3.4(L) 3.5 - 5.1 mmol/L 06/28/2023 6:54 PM CDT [facility] CHLORIDE 72(L) 98 - 107 mmol/L 06/28/2023 6:54 PM CDT [facility] CO2,TOTAL 40(H) 22 - 29 mmol/L 06/28/2023 6:54 PM CDT [facility] ANION GAP 16 5 - 18 06/28/2023 6:54 PM CDT [facility] GLUCOSE 158(H) 70 - 99 mg/dL 06/28/2023 6:54 PM CDT [facility] CALCIUM 10.7(H) 8.8 - 10.2 mg/dL 06/28/2023 6:54 PM CDT [facility] BUN 35(H) 8 - 23 mg/dL 06/28/2023 6:54 PM CDT [facility] CREATININE 1.06 0.70 - 1.20 mg/dL 06/28/2023 6:54 PM CDT [facility] BUN/CREAT RATIO 33(H) 10 - 20 6:54 PM CDT [facility] eGFR 71(L) >90 mL/min/1.7 3m2 06/28/2023 6:54 PM CDT [facility] Comment:As of 2021, eG FR [...] 9:36 AM CDT Nuno Oreilly MD [facility] [address] [place] [address], * SCAN-RADIOLOGY REPORT (06/28/2023 12:00 AM CDT) Anatomical Region Laterality Modality Other Scanner OTHER * (ABNORMAL) CBC WITH AUTO DIFFERENTIAL (06/12/2023 1:57 PM CDT) WHITE BLOOD COUNT 9.2 4.5 - 11.0 thou/cu mm 06/12/2023 2:08 PM CDT [facility] RED BLOOD COUNT 4.38 4.30 - 5.90 mil/cu mm 06/12/2023 2:08 PM CDT [facility] HEMOGLOBIN 13.6 13.5 - 17.5 g/dL 06/12/2023 2:08 PM CDT [facility] HEMATOCRIT 41.0 37.0 - 53.0 % 06/12/2023 2:08 PM CDT [facility] MCV 94 80 - 100 fL 06/12/2023 2:08 PM CDT [facility] MCH 31.1 26.0 - 34.0 pg 06/12/2023 2:08 PM CDT [facility] MCHC 33.2 32.0 - 36.0 g/dL 06/12/2023 2:08 PM CDT [facility] RDW 12.9 11.5 - 15.5 % 06/12/2023 2:08 PM CDT [facility] PLATELET COUNT 341 140 - 440 thou/cu mm 06/12/2023 2:08 PM CDT [facility] MPV 9.3 6.5 - 11.0 fL 06/12/2023 2:08 PM CDT [facility] % NEUT 79.1 % 06/12/2023 2:08 PM CDT [facility] % LYMPH 15.2 % 06/12/2023 2:08 PM CDT [facility] % MONO 4.8 % 06/12/2023 2:08 PM CDT [facility] % EOS 0.7 % 06/12/2023 2:08 PM CDT [facility] % BASO 0.2 % 06/12/2023 2:08 PM CDT [facility] ABSOLUTE NEUTROPHILS 7.3(H) 1.7 - 7.0 thou/cu mm 06/12/2023 2:08 PM CDT [facility] ABSOLUTE LYMPHOCYTES 1.4 0.9 - 2.9 thou/cu mm 06/12/2023 2:08 PM CDT [facility] ABSOLUTE MONOCYTES 0.4 <0.9 thou/cu mm 06/12/2023 2:08 PM CDT [facility] ABSOLUTE EOSINOPHILS 0.1 <0.5 thou/cu mm 06/12/2023 2:08 PM CDT [facility] ABSOLUTE BASOPHILS 0.0 <0.3 thou/cu mm 06/12/2023 2:08 PM CDT [facility] Blood BLOOD SPECIMEN / Unknown Venipuncture / Unknown 06/12/2023 1:57 PM CDT 06/12/2023 2:00 PM CDT Nuno Oreilly MD HEMATOLOGY [facility] [address] [place] [address] * (ABNORMAL) COMP METABOLIC PANEL (06/12/2023 1:57 PM CDT) SODIUM 127(L) 136 - 145 mmol/L 06/13/2023 1:27 AM T [facility] POTASSIUM 4.2 3.5 - 5.1 mmol/L 06/13/2023 1:27 AM T [facility] CHLORIDE 81(L) 98 - 107 mmol/L 06/13/2023 1:27 AM T [facility] CO2,TOTAL 36(H) 22 - 29 mmol/L 06/13/2023 1:27 AM [facility] ANION GAP 10 5 - 18 06/13/2023 1:27 AM T [facility] GLUCOSE 128(H) 70 - 99 mg/dL 06/13/2023 1:27 AM T [facility] CALCIUM 10.1 8.8 - 10.2 mg/dL 06/13/2023 1:27 AM T [facility] BUN 12 8 - 23 mg/dL 06/13/2023 1:27 AM [facility] CREATININE 0.75 0.70 - 1.20 mg/dL 06/13/2023 1:27 AM [facility] BUN/CREAT RATIO 16 10 - 20 1:27 AM [facility] eGFR >90 >90 mL/min/1.7 3m2 06/13/2023 1:27 AM [facility] Comment:As of 2021, eG FR is calculated by the CKD-EPI creatinine equation without race adjustment. ??eGFR can be influenced by muscle mass, exercise, and diet. ??The reported eGFR is an estimation only and is only applicable if the renal function is stable. ALBUMIN 4.3 4.0 - 4.9 g/dL 06/13/2023 1:27 AM CDT [facility] PROTEIN,TOTAL 6.9 6.0 - 8.0 g/dL 06/13/2023 1:27 AM CDT [facility] BILIRUBIN,TOTAL 0.4 0.0 - 1.2 mg/dL 06/13/2023 1:27 AM CDT [facility] ALK PHOSPHATASE 106 40 - 129 IU/L 06/13/2023 1:27 AM CDT [facility] ALT (SGPT) 14 10 - 50 IU/L 06/13/2023 1:27 AM CDT [facility] AST (SGOT) 26 10 - 50 IU/L 06/13/2023 1:27 AM CDT [facility] Blood BLOOD SPECIMEN / Unknown Venipuncture / Unknown 06/12/2023 1:57 PM CDT 06/12/2023 2:00 PM CDT Nuno Oreilly MD CHEMISTRY [facility] [address] [place] [address], * CT CHEST PE STUDY (12/24/2017 11:51 AM COLLAR SETTER OVERLOCK) Anatomical Region Laterality Modality CHEST, THORAX, HEART Computed To mography 12/24/2017 12:1 9 PM COLLAR SETTER OVERLOCK Narrative 12/24/2017 12:19 PM COLLAR SETTER OVERLOCK HISTORY: Cough and shortness of breath. 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
--- OUTSIDE RECORDS SUMMARY | 2023-07-10 21:59 | XMS_ITS | Clinical Summary ---
Author Organization [place] Address [address] [place] [address]. [place] [address] Care Team Providers Care Separator Operator Name Role Phone [facility] Primary Care Provider Allergies No known active allergies Social History Tobacco Use Types Packs/Day Years Used Date Smoking Tobacco: Never Assessed Sex and Gender Information Value Date Recorded Sex Assigned at Not on file Gender Identity Not on file Sexual Orientation Not on file Last Filed Vital Signs Vital Sign Reading Time Taken Comments Blood Pressure 102/70 12/16/2017 1:15 AM DENTAL COORDINATOR Pulse 109 12/15/2017 9:49 PM DENTAL COORDINATOR Temperature 37.2 ??C (99 ??F) 12/16/2017 1:24 AM DENTAL COORDINATOR Respiratory Rate 22 12/15/2017 11:41 PM DENTAL COORDINATOR Oxygen Saturation 93% 12/16/2017 1:15 AM DENTAL COORDINATOR Inhaled Oxygen Concentration - - Weight - - Height - - Body Mass Index - - Plan of Treatment Not on file Care Teams Separator Operator Relationship Specialty Start Date End Date [facility], [facility] [address] [place] [address] PCP - General 12/15/17
== END 2023-07-04 09:31 | disposition home or self-care (01) ==
LOC: AMB 07-10 21:58
PROVIDERS: PCP Family Medicine; Visit Provider Family Medicine
DX: R06.09 Other forms of dyspnea (principal); Z99.81 Dependence on supplemental oxygen
CPT/HCPCS: A0425; A0428